=== PATIENT | male | born 1970 | race African-American/Black ===

== ENCOUNTER 2017-03-31 14:46 | Inpatient (IN) | payer MEDICARE, OTHER ==
[2017-03-31 16:21] VITALS: BMI 32.5
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
[2017-03-31] MEDS ORDERED: guaiFENesin/D-METHORPHAN HB 10 ML UNIT-DOSE CUPS PO PRN (19:07)
[2017-03-31] MEDS ORDERED: LOPERAMIDE HCL 2 MG CAPSULE PO PRN (19:07)
[2017-03-31] MEDS ORDERED: MAGNESIUM CITRATE 300 ML BOTTLE PO PRN (19:07)
[2017-03-31] MEDS ORDERED: MAGNESIUM HYDROX 2400MG/30ML ORAL SUSPENSION 30 ML CUP PO PRN (19:07)
[2017-03-31] MEDS ORDERED: ACETAMINOPHEN 325 MG TABLET (FP) PO PRN (19:07)
[2017-03-31] MEDS ORDERED: MAG HYDROX/AL HYDROX/SIMETH 30 ML UNIT-DOSE CUP PO PRN (19:07)
[2017-03-31] MEDS ORDERED: hydrOXYzine PAMOATE 50 MG CAPSULE (FP) PO PRN (19:07)
[2017-03-31] MEDS ORDERED: NICOTINE POLACRILEX 2 MG GUM BUC PRN (19:07)
[2017-03-31 21:19] LABS: URINE APPEARANCE CLEAR; URINE BILIRUBIN NEGATIVE (NEGATIVE); URINE BLOOD NEGATIVE (NEGATIVE); URINE COLOR YELLOW; URINE GLUCOSE (UA) NEGATIVE (NEGATIVE); URINE KETONE NEGATIVE (NEGATIVE); URINE LEUK ESTERASE NEGATIVE (NEGATIVE); URINE NITRITE NEGATIVE (NEGATIVE); URINE PROTEIN NEGATIVE (NEGATIVE); URINE UROBILINOGEN NEGATIVE mg/dL (0.2-1.0)
[2017-03-31] MEDS: diphenhydrAMINE HCL 50 MG CAPSULE PO PRN (21:40)
[2017-03-31] MEDS: THIAMINE HCL 100 MG TABLET (FP) PO SCH (21:40)
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
[2017-04-01] MEDS: PRENATAL VITAMINS W/ FOLIC ACID TABLET (FP) PO SCH (10:05)
[2017-04-01] MEDS: NICOTINE 14 MG/24 HOURS TOPICAL PATCH TD SCH (10:06)
[2017-04-01 10:24] LABS: ALBUMIN 3.3 g/dl (3.4-5.0); ALK PHOS 88 U/L (45-117); ANION GAP 6 (8-16); BILIRUBIN,TOTAL 0.2 mg/dL (0.2-1.0); CALCIUM 8.4 mg/dL (8.5-10.1); CO2 26 mmol/L (21-32); GLUCOSE,RANDOM 88 mg/dL (74-106); MCH 30.4 pg (25.7-33.7); MCHC 33.1 g/dl (32.0-35.9); MEAN CELL VOLUME 91.9 fl (80-96); MEAN PLT VOLUME 9.4 fl (7.5-11.1); PLATELET COUNT 208 K/MM3 (134-434); RDW 15.1 % (11.9-15.9); SGOT/AST 14 U/L (15-37); SGPT/ALT 34 U/L (12-78); TOT PROT 6.3 g/dl (6.4-8.2); WHITE BLOOD COUNT 5.9 K/mm3 (4.0-10.0)
[2017-04-01 11:26] LABS: HIV 1 & 2 AB NEGATIVE; HIV 1 AGp24 NEGATIVE
[2017-04-01] MEDS: risperiDONE 2 MG TABLET PO SCH (21:44)
[2017-04-01] MEDS: THIAMINE HCL 100 MG TABLET (FP) PO SCH (21:44)
[2017-04-01] MEDS: traZODone HCL 100 MG TABLET (FP) PO SCH (21:44)
[2017-04-02] MEDS: PRENATAL VITAMINS W/ FOLIC ACID TABLET (FP) PO SCH (10:09)
[2017-04-02] MEDS: NICOTINE 14 MG/24 HOURS TOPICAL PATCH TD SCH (10:14)
--- NOTE | 2017-04-02 20:02 | EKG ---
Test Reason : Blood Pressure : / mmHG Vent. Rate : 070 BPM Atrial Rate : 070 BPM P-R Int : 164 ms QRS Dur : 096 ms QT Int : 382 ms P-R-T Axes : 057 049 026 degrees QTc Int : 412 ms NORMAL SINUS RHYTHM WITH SINUS ARRHYTHMIA MINIMAL VOLTAGE CRITERIA FOR LVH, MAY BE NORMAL VARIANT EARLY REPOLARIZATION BORDERLINE ECG NO PREVIOUS ECGS AVAILABLE Confirmed by CAITLIN BURNS MD ([id number]) on 04/02/2017 8:02:18 PM Referred By: Confirmed By:CAITLIN BURNS MD
[2017-04-02] MEDS: traZODone HCL 100 MG TABLET (FP) PO SCH (21:34)
[2017-04-02] MEDS: risperiDONE 2 MG TABLET PO SCH (21:34)
[2017-04-02] MEDS: diphenhydrAMINE HCL 50 MG CAPSULE PO PRN (21:34)
[2017-04-02] MEDS: THIAMINE HCL 100 MG TABLET (FP) PO SCH (21:34)
[2017-04-03] MEDS: PRENATAL VITAMINS W/ FOLIC ACID TABLET (FP) PO SCH (10:06)
[2017-04-03] MEDS: NICOTINE 14 MG/24 HOURS TOPICAL PATCH TD SCH (10:07)
[2017-04-03] MEDS: risperiDONE 2 MG TABLET PO SCH (21:26)
[2017-04-03] MEDS: traZODone HCL 100 MG TABLET (FP) PO SCH (21:26)
[2017-04-03] MEDS: THIAMINE HCL 100 MG TABLET (FP) PO SCH (21:27)
[2017-04-03] MEDS: diphenhydrAMINE HCL 50 MG CAPSULE PO PRN (21:27)
[2017-04-04] MEDS: IBUPROFEN 400 MG TABLET (FP) PO PRN ×2 (00:55→21:09)
[2017-04-04] MEDS: NICOTINE 14 MG/24 HOURS TOPICAL PATCH TD SCH (10:30)
[2017-04-04] MEDS: PRENATAL VITAMINS W/ FOLIC ACID TABLET (FP) PO SCH (10:30)
[2017-04-04] MEDS: traZODone HCL 100 MG TABLET (FP) PO SCH (21:08)
[2017-04-04] MEDS: diphenhydrAMINE HCL 50 MG CAPSULE PO PRN (21:08)
[2017-04-04] MEDS: risperiDONE 2 MG TABLET PO SCH (21:08)
[2017-04-04] MEDS: THIAMINE HCL 100 MG TABLET (FP) PO SCH (21:08)
[2017-04-05] MEDS: PRENATAL VITAMINS W/ FOLIC ACID TABLET (FP) PO SCH (10:32)
[2017-04-05] MEDS: NICOTINE 14 MG/24 HOURS TOPICAL PATCH TD SCH (10:33)
[2017-04-05] MEDS: IBUPROFEN 400 MG TABLET (FP) PO PRN ×2 (10:34→21:11)
[2017-04-05] MEDS: diphenhydrAMINE HCL 50 MG CAPSULE PO PRN (21:09)
[2017-04-05] MEDS: traZODone HCL 100 MG TABLET (FP) PO SCH (21:09)
[2017-04-05] MEDS: THIAMINE HCL 100 MG TABLET (FP) PO SCH (21:09)
[2017-04-05] MEDS: risperiDONE 2 MG TABLET PO SCH (21:11)
[2017-04-06] MEDS: PRENATAL VITAMINS W/ FOLIC ACID TABLET (FP) PO SCH (10:00)
[2017-04-06] MEDS: NICOTINE 14 MG/24 HOURS TOPICAL PATCH TD SCH (10:01)
[2017-04-06] MEDS: IBUPROFEN 400 MG TABLET (FP) PO PRN (17:02)
[2017-04-06] MEDS: THIAMINE HCL 100 MG TABLET (FP) PO SCH (21:03)
[2017-04-06] MEDS: diphenhydrAMINE HCL 50 MG CAPSULE PO PRN (21:03)
[2017-04-06] MEDS: traZODone HCL 100 MG TABLET (FP) PO SCH (21:03)
[2017-04-06] MEDS: risperiDONE 2 MG TABLET PO SCH (21:03)
[2017-04-07] MEDS: IBUPROFEN 400 MG TABLET (FP) PO PRN ×2 (05:57→21:16)
[2017-04-07] MEDS: PRENATAL VITAMINS W/ FOLIC ACID TABLET (FP) PO SCH (10:20)
[2017-04-07] MEDS: NICOTINE 14 MG/24 HOURS TOPICAL PATCH TD SCH (10:20)
[2017-04-07] MEDS: THIAMINE HCL 100 MG TABLET (FP) PO SCH (21:16)
[2017-04-07] MEDS: risperiDONE 2 MG TABLET PO SCH (21:17)
[2017-04-07] MEDS: traZODone HCL 100 MG TABLET (FP) PO SCH (21:17)
[2017-04-07] MEDS: diphenhydrAMINE HCL 50 MG CAPSULE PO PRN (21:17)
[2017-04-08] MEDS: PRENATAL VITAMINS W/ FOLIC ACID TABLET (FP) PO SCH (10:10)
[2017-04-08] MEDS: NICOTINE 14 MG/24 HOURS TOPICAL PATCH TD SCH (10:10)
[2017-04-08] MEDS: THIAMINE HCL 100 MG TABLET (FP) PO SCH (21:16)
[2017-04-08] MEDS: traZODone HCL 100 MG TABLET (FP) PO SCH (21:16)
[2017-04-08] MEDS: risperiDONE 2 MG TABLET PO SCH (21:16)
[2017-04-08] MEDS: IBUPROFEN 400 MG TABLET (FP) PO PRN (21:17)
[2017-04-08] MEDS: diphenhydrAMINE HCL 50 MG CAPSULE PO PRN (21:17)
[2017-04-09] MEDS: PRENATAL VITAMINS W/ FOLIC ACID TABLET (FP) PO SCH (10:23)
[2017-04-09] MEDS: NICOTINE 14 MG/24 HOURS TOPICAL PATCH TD SCH (10:23)
[2017-04-09] MEDS: IBUPROFEN 400 MG TABLET (FP) PO PRN (21:15)
[2017-04-09] MEDS: diphenhydrAMINE HCL 50 MG CAPSULE PO PRN (21:16)
[2017-04-09] MEDS: risperiDONE 2 MG TABLET PO SCH (21:16)
[2017-04-09] MEDS: traZODone HCL 100 MG TABLET (FP) PO SCH (21:16)
[2017-04-09] MEDS: THIAMINE HCL 100 MG TABLET (FP) PO SCH (21:17)
[2017-04-10] MEDS: NICOTINE 14 MG/24 HOURS TOPICAL PATCH TD SCH (10:24)
[2017-04-10] MEDS: PRENATAL VITAMINS W/ FOLIC ACID TABLET (FP) PO SCH (10:24)
[2017-04-10] MEDS: risperiDONE 2 MG TABLET PO SCH (22:00)
[2017-04-10] MEDS: THIAMINE HCL 100 MG TABLET (FP) PO SCH (22:00)
[2017-04-10] MEDS: IBUPROFEN 400 MG TABLET (FP) PO PRN (22:01)
[2017-04-10] MEDS: traZODone HCL 100 MG TABLET (FP) PO SCH (22:01)
[2017-04-10] MEDS: diphenhydrAMINE HCL 50 MG CAPSULE PO PRN (22:01)
[2017-04-11] MEDS: NICOTINE 14 MG/24 HOURS TOPICAL PATCH TD SCH (10:13)
[2017-04-11] MEDS: PRENATAL VITAMINS W/ FOLIC ACID TABLET (FP) PO SCH (10:13)
[2017-04-11] MEDS: IBUPROFEN 400 MG TABLET (FP) PO PRN (17:00)
[2017-04-11] MEDS: risperiDONE 2 MG TABLET PO SCH (21:17)
[2017-04-11] MEDS: THIAMINE HCL 100 MG TABLET (FP) PO SCH (21:17)
[2017-04-11] MEDS: diphenhydrAMINE HCL 50 MG CAPSULE PO PRN (21:17)
[2017-04-11] MEDS: traZODone HCL 100 MG TABLET (FP) PO SCH (21:17)
[2017-04-12] MEDS: NICOTINE 14 MG/24 HOURS TOPICAL PATCH TD SCH (10:09)
[2017-04-12] MEDS: PRENATAL VITAMINS W/ FOLIC ACID TABLET (FP) PO SCH (10:09)
[2017-04-12] MEDS: IBUPROFEN 400 MG TABLET (FP) PO PRN ×2 (13:50→21:40)
[2017-04-12] MEDS: THIAMINE HCL 100 MG TABLET (FP) PO SCH (21:38)
[2017-04-12] MEDS: risperiDONE 2 MG TABLET PO SCH (21:38)
[2017-04-12] MEDS: traZODone HCL 100 MG TABLET (FP) PO SCH (21:38)
[2017-04-12] MEDS: diphenhydrAMINE HCL 50 MG CAPSULE PO PRN (21:39)
[2017-04-13] MEDS: NICOTINE 14 MG/24 HOURS TOPICAL PATCH TD SCH (10:07)
[2017-04-13] MEDS: PRENATAL VITAMINS W/ FOLIC ACID TABLET (FP) PO SCH (10:07)
[2017-04-13] MEDS: risperiDONE 2 MG TABLET PO SCH (21:18)
[2017-04-13] MEDS: traZODone HCL 100 MG TABLET (FP) PO SCH (21:19)
[2017-04-13] MEDS: diphenhydrAMINE HCL 50 MG CAPSULE PO PRN (21:19)
[2017-04-13] MEDS: IBUPROFEN 400 MG TABLET (FP) PO PRN (21:19)
[2017-04-13] MEDS: THIAMINE HCL 100 MG TABLET (FP) PO SCH (21:19)
[2017-04-14] MEDS: IBUPROFEN 400 MG TABLET (FP) PO PRN ×3 (03:19→17:09)
[2017-04-14] MEDS: PRENATAL VITAMINS W/ FOLIC ACID TABLET (FP) PO SCH (10:27)
[2017-04-14] MEDS: NICOTINE 14 MG/24 HOURS TOPICAL PATCH TD SCH (10:28)
[2017-04-14] MEDS: traZODone HCL 100 MG TABLET (FP) PO SCH (21:35)
[2017-04-14] MEDS: THIAMINE HCL 100 MG TABLET (FP) PO SCH (21:35)
[2017-04-14] MEDS: risperiDONE 2 MG TABLET PO SCH (21:35)
[2017-04-14] MEDS: diphenhydrAMINE HCL 50 MG CAPSULE PO PRN (21:35)
[2017-04-15] MEDS: PRENATAL VITAMINS W/ FOLIC ACID TABLET (FP) PO SCH (10:11)
[2017-04-15] MEDS: NICOTINE 14 MG/24 HOURS TOPICAL PATCH TD SCH (10:11)
[2017-04-15] MEDS: IBUPROFEN 400 MG TABLET (FP) PO PRN ×2 (14:19→22:00)
[2017-04-15] MEDS: traZODone HCL 100 MG TABLET (FP) PO SCH (22:00)
[2017-04-15] MEDS: risperiDONE 2 MG TABLET PO SCH (22:00)
[2017-04-15] MEDS: diphenhydrAMINE HCL 50 MG CAPSULE PO PRN (22:00)
[2017-04-15] MEDS: THIAMINE HCL 100 MG TABLET (FP) PO SCH (22:00)
[2017-04-16] MEDS: IBUPROFEN 400 MG TABLET (FP) PO PRN ×2 (08:59→22:01)
[2017-04-16] MEDS: PRENATAL VITAMINS W/ FOLIC ACID TABLET (FP) PO SCH (10:25)
[2017-04-16] MEDS: NICOTINE 14 MG/24 HOURS TOPICAL PATCH TD SCH (10:25)
[2017-04-16] MEDS: diphenhydrAMINE HCL 50 MG CAPSULE PO PRN (22:00)
[2017-04-16] MEDS: THIAMINE HCL 100 MG TABLET (FP) PO SCH (22:00)
[2017-04-16] MEDS: risperiDONE 2 MG TABLET PO SCH (22:01)
[2017-04-16] MEDS: traZODone HCL 100 MG TABLET (FP) PO SCH (22:01)
[2017-04-17] MEDS: PRENATAL VITAMINS W/ FOLIC ACID TABLET (FP) PO SCH (10:36)
[2017-04-17] MEDS: NICOTINE 14 MG/24 HOURS TOPICAL PATCH TD SCH (10:37)
[2017-04-17] MEDS: THIAMINE HCL 100 MG TABLET (FP) PO SCH (21:30)
[2017-04-17] MEDS: diphenhydrAMINE HCL 50 MG CAPSULE PO PRN (21:30)
[2017-04-17] MEDS: traZODone HCL 100 MG TABLET (FP) PO SCH (21:31)
[2017-04-17] MEDS: risperiDONE 2 MG TABLET PO SCH (21:31)
[2017-04-17] MEDS: IBUPROFEN 400 MG TABLET (FP) PO PRN (21:31)
[2017-04-18] MEDS: IBUPROFEN 400 MG TABLET (FP) PO PRN ×2 (08:50→21:27)
[2017-04-18] MEDS: PRENATAL VITAMINS W/ FOLIC ACID TABLET (FP) PO SCH (09:08)
[2017-04-18] MEDS: NICOTINE 14 MG/24 HOURS TOPICAL PATCH TD SCH (09:09)
--- NOTE | 2017-04-18 13:24 | PN ---
[facility] Progress Note Note: patient has head injury ,sent back after evaluation in er, bp 145/87,p91,r 19,t 97.9 ct of head,cervical and lumbar spine no fracture medical clear for er at [facility] to return to reha cont fall protocol 1 fall precaution continue monitoring
[2017-04-18] MEDS: THIAMINE HCL 100 MG TABLET (FP) PO SCH (21:27)
[2017-04-18] MEDS: traZODone HCL 100 MG TABLET (FP) PO SCH (21:27)
[2017-04-18] MEDS: risperiDONE 2 MG TABLET PO SCH (21:27)
[2017-04-18] MEDS: diphenhydrAMINE HCL 50 MG CAPSULE PO PRN (21:27)
[2017-04-19] MEDS: IBUPROFEN 400 MG TABLET (FP) PO PRN ×2 (05:39→21:11)
[2017-04-19] MEDS: PRENATAL VITAMINS W/ FOLIC ACID TABLET (FP) PO SCH (10:25)
[2017-04-19] MEDS: NICOTINE 14 MG/24 HOURS TOPICAL PATCH TD SCH (10:25)
[2017-04-19] MEDS: THIAMINE HCL 100 MG TABLET (FP) PO SCH (21:10)
[2017-04-19] MEDS: traZODone HCL 100 MG TABLET (FP) PO SCH (21:10)
[2017-04-19] MEDS: diphenhydrAMINE HCL 50 MG CAPSULE PO PRN (21:10)
[2017-04-19] MEDS: risperiDONE 2 MG TABLET PO SCH (21:10)
[2017-04-20] MEDS: IBUPROFEN 400 MG TABLET (FP) PO PRN ×2 (04:02→21:20)
[2017-04-20] MEDS: PRENATAL VITAMINS W/ FOLIC ACID TABLET (FP) PO SCH (09:42)
[2017-04-20] MEDS: NICOTINE 14 MG/24 HOURS TOPICAL PATCH TD SCH (09:43)
[2017-04-20] MEDS: diphenhydrAMINE HCL 50 MG CAPSULE PO PRN (21:20)
[2017-04-20] MEDS: THIAMINE HCL 100 MG TABLET (FP) PO SCH (21:21)
[2017-04-20] MEDS: traZODone HCL 100 MG TABLET (FP) PO SCH (21:21)
[2017-04-20] MEDS: risperiDONE 2 MG TABLET PO SCH (21:21)
[2017-04-21] MEDS: PRENATAL VITAMINS W/ FOLIC ACID TABLET (FP) PO SCH (09:47)
[2017-04-21] MEDS: NICOTINE 14 MG/24 HOURS TOPICAL PATCH TD SCH (09:48)
[2017-04-21] MEDS: traZODone HCL 100 MG TABLET (FP) PO SCH (21:35)
[2017-04-21] MEDS: diphenhydrAMINE HCL 50 MG CAPSULE PO PRN (21:35)
[2017-04-21] MEDS: IBUPROFEN 400 MG TABLET (FP) PO PRN (21:35)
[2017-04-21] MEDS: risperiDONE 2 MG TABLET PO SCH (21:35)
[2017-04-21] MEDS: THIAMINE HCL 100 MG TABLET (FP) PO SCH (21:35)
[2017-04-22] MEDS: PRENATAL VITAMINS W/ FOLIC ACID TABLET (FP) PO SCH (10:20)
[2017-04-22] MEDS: NICOTINE 14 MG/24 HOURS TOPICAL PATCH TD SCH (10:20)
[2017-04-22] MEDS: IBUPROFEN 400 MG TABLET (FP) PO PRN ×2 (10:21→21:14)
[2017-04-22] MEDS: THIAMINE HCL 100 MG TABLET (FP) PO SCH (21:12)
[2017-04-22] MEDS: traZODone HCL 100 MG TABLET (FP) PO SCH (21:12)
[2017-04-22] MEDS: risperiDONE 2 MG TABLET PO SCH (21:13)
[2017-04-22] MEDS: diphenhydrAMINE HCL 50 MG CAPSULE PO PRN (21:14)
[2017-04-23] MEDS: PRENATAL VITAMINS W/ FOLIC ACID TABLET (FP) PO SCH (10:11)
[2017-04-23] MEDS: NICOTINE 14 MG/24 HOURS TOPICAL PATCH TD SCH (10:11)
[2017-04-23] MEDS: IBUPROFEN 400 MG TABLET (FP) PO PRN ×2 (10:12→21:37)
[2017-04-23] MEDS: THIAMINE HCL 100 MG TABLET (FP) PO SCH (21:37)
[2017-04-23] MEDS: diphenhydrAMINE HCL 50 MG CAPSULE PO PRN (21:38)
[2017-04-23] MEDS: risperiDONE 2 MG TABLET PO SCH (21:38)
[2017-04-23] MEDS: traZODone HCL 100 MG TABLET (FP) PO SCH (21:38)
[2017-04-24] MEDS: PRENATAL VITAMINS W/ FOLIC ACID TABLET (FP) PO SCH (10:09)
[2017-04-24] MEDS: IBUPROFEN 400 MG TABLET (FP) PO PRN ×2 (10:11→21:31)
[2017-04-24] MEDS: NICOTINE 14 MG/24 HOURS TOPICAL PATCH TD SCH (10:12)
[2017-04-24] MEDS: traZODone HCL 100 MG TABLET (FP) PO SCH (21:32)
[2017-04-24] MEDS: risperiDONE 2 MG TABLET PO SCH (21:32)
[2017-04-24] MEDS: THIAMINE HCL 100 MG TABLET (FP) PO SCH (21:32)
[2017-04-24] MEDS: diphenhydrAMINE HCL 50 MG CAPSULE PO PRN (21:33)
[2017-04-25] MEDS: P-EPHED 60MG/TRIPROLIDI 2.5MG TABLET PO PRN ×2 (08:23→21:14)
[2017-04-25] MEDS: PRENATAL VITAMINS W/ FOLIC ACID TABLET (FP) PO SCH (09:57)
[2017-04-25] MEDS: NICOTINE 14 MG/24 HOURS TOPICAL PATCH TD SCH (09:58)
[2017-04-25] MEDS: risperiDONE 2 MG TABLET PO SCH (21:12)
[2017-04-25] MEDS: traZODone HCL 100 MG TABLET (FP) PO SCH (21:12)
[2017-04-25] MEDS: diphenhydrAMINE HCL 50 MG CAPSULE PO PRN (21:12)
[2017-04-25] MEDS: THIAMINE HCL 100 MG TABLET (FP) PO SCH (21:12)
[2017-04-25] MEDS: IBUPROFEN 400 MG TABLET (FP) PO PRN (21:12)
[2017-04-25] MEDS: MENTHOL/PHENOL 1 EACH UD MM PRN (21:14)
[2017-04-26] MEDS: NICOTINE 14 MG/24 HOURS TOPICAL PATCH TD SCH (09:50)
[2017-04-26] MEDS: PRENATAL VITAMINS W/ FOLIC ACID TABLET (FP) PO SCH (09:50)
[2017-04-26] MEDS: P-EPHED 60MG/TRIPROLIDI 2.5MG TABLET PO PRN ×2 (11:17→21:42)
[2017-04-26] MEDS: MENTHOL/PHENOL 1 EACH UD MM PRN ×2 (11:17→21:44)
[2017-04-26] MEDS: THIAMINE HCL 100 MG TABLET (FP) PO SCH (21:41)
[2017-04-26] MEDS: risperiDONE 2 MG TABLET PO SCH (21:41)
[2017-04-26] MEDS: traZODone HCL 100 MG TABLET (FP) PO SCH (21:41)
[2017-04-26] MEDS: IBUPROFEN 400 MG TABLET (FP) PO PRN (21:43)
[2017-04-26] MEDS: diphenhydrAMINE HCL 50 MG CAPSULE PO PRN (21:43)
[2017-04-27] MEDS: PRENATAL VITAMINS W/ FOLIC ACID TABLET (FP) PO SCH (09:59)
[2017-04-27] MEDS: NICOTINE 14 MG/24 HOURS TOPICAL PATCH TD SCH (09:59)
[2017-04-27] MEDS: THIAMINE HCL 100 MG TABLET (FP) PO SCH (22:00)
[2017-04-27] MEDS: risperiDONE 2 MG TABLET PO SCH (22:00)
[2017-04-27] MEDS: traZODone HCL 100 MG TABLET (FP) PO SCH (22:00)
[2017-04-27] MEDS: P-EPHED 60MG/TRIPROLIDI 2.5MG TABLET PO PRN (22:02)
[2017-04-27] MEDS: IBUPROFEN 400 MG TABLET (FP) PO PRN (22:02)
[2017-04-27] MEDS: diphenhydrAMINE HCL 50 MG CAPSULE PO PRN (22:02)
[2017-04-27] MEDS: MENTHOL/PHENOL 1 EACH UD MM PRN (22:02)
--- NOTE | 2017-04-28 06:40 | PN ---
Psychiatric Progress Note Vital Signs: Vital Signs Period Temp Pulse Resp BP Sys/Ortiz Pulse Ox Last 24 Hr 97.9 F 91 20-20 122/74 Date of Session: 04/28/17 Chief Complaint:: Discharge Note HPI: Patient addressing Phencyclidine Dependence comorbid with Nicotine Dependence and Schizophrenia Current Medications: Active Medications Generic Name Dose Route Start Last Admin Trade Name Freq PRN Reason Stop Dose Admin Acetaminophen 650 mg 03/31/17 19:07 Tylenol - PO Q4H PRN PAIN Al Hydroxide/Mg Hydroxide 30 ml 03/31/17 19:07 Mylanta Oral Suspension - PO Q6H PRN DYSPEPSIA Diphenhydramine HCl 50 mg 03/31/17 19:07 04/27/17 22:02 Benadryl - PO 50 mg HSMR1 PRN Administration INSOMNIA Eucalyptus/Menthol/Phenol/Sorbitol 1 each 03/31/17 19:07 04/27/17 22:02 Cepastat Lozenge - MM 1 each Q4H PRN Administration SORE THROAT Guaifenesin 10 ml 03/31/17 19:07 Robitussin Dm - PO Q6H PRN COUGH Hydroxyzine Pamoate 50 mg 03/31/17 19:07 Vistaril - PO Q4H PRN AGITATION Ibuprofen 400 mg 03/31/17 19:07 04/27/17 22:02 Motrin - PO 400 mg Q6H PRN Administration SEVERE PAIN Loperamide HCl 4 mg 03/31/17 19:07 Imodium - PO Q6H PRN DIARRHEA Magnesium Citrate 300 ml 03/31/17 19:07 Citroma - PO Q48H PRN CONSTIPATION Magnesium Hydroxide 30 ml 03/31/17 19:07 Milk Of Magnesia - PO DAILY PRN CONSTIPATION Nicotine 14 mg 04/01/17 10:00 04/27/17 09:59 Nicoderm Patch - TD Not Given DAILY MICHAEL Nicotine Polacrilex 2 mg 03/31/17 19:07 04/23/17 19:55 Nicorette Gum - BUC 2 mg Q2H PRN Administration NICOTINE REPLACEMENT RX Multivit/Folic Acid/Iron 1 tab 04/01/17 10:00 04/27/17 09:59 Vitamins (Sjr) - PO 1 tab DAILY MICHAEL Administration Pseudoephedrine/Triprolidine 1 combo 03/31/17 19:07 04/27/17 22:02 Actifed - PO 1 combo TID PRN Administration NASAL CONGESTION Risperidone 4 mg 04/01/17 22:00 04/27/17 22:00 Risperdal - PO 4 mg HS MICHAEL Administration Thiamine HCl 100 mg 03/31/17 22:00 04/27/17 22:00 Vitamin B1 - PO 100 mg HS MICHAEL Administration Trazodone HCl 100 mg 04/01/17 22:00 04/27/17 22:00 Desyrel - PO 100 mg HS MICHAEL Administration Current Side Effect: No Lab tests ordered: Yes Lab tests reviewed: Yes Provider note:: Patient has completed this program today. He has met his treatment goals and will continue to address his issues in an outpatient program designated by [facility]. 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 He responded wel to Risperdal 4 mg po HS and Trazadone 100 mg po HS. Scripts for 30 days supply of these medications are electronically transmitted to [facility] at [address] [place] [address]. He is stable for discharge today. Total face to face time:: 35 Mental Status Exam - Mental Status Exam Alert and Oriented to: Time, Place, Person Cognitive Function: Fair Patient Appearance: Well Groomed Mood: Hopeful, Euthymic Affect: Appropriate Patient Behavior: Cooperative Speech Pattern: Clear Voice Loudness: Normal Thought Process: Intact, Goal Oriented Thought Disorder: Not Present Hallucinations: Denies Suicidal Ideation: Denies Homicidal Ideation: Denies Insight/Judgement: Fair Sleep: Fair Appetite: Good Muscle strength/Tone: Normal Gait/Station: Normal Psychiatric Treatment Plan - Problem List (1) Phencyclidine dependence Current Visit: Yes (2) Nicotine dependence Current Visit: Yes Qualifiers: Nicotine product type: cigarettes Substance use status: in withdrawal Qualified Code(s): F17.213 - Nicotine dependence, cigarettes, with withdrawal (3) Schizophrenia Current Visit: Yes Qualifiers: Schizophrenia type: disorganized schizophrenia Qualified Code(s): F20.1 - Disorganized schizophrenia Initial treatment plan: Patient is discharged today and will be referred for outpatient treatment to a place designated by [facility]
[2017-04-28 06:55] VITALS: BP 139/79; PULSE 100; TEMP 98
== END 2017-04-28 07:12 | disposition home or self-care (01) | DRG 895 ==
LOC: YASAS 14:46 → Y3W 18:25
PROVIDERS: ADMIT Psychiatry & Neurology Psychiatry; ATTEND Psychiatry & Neurology Psychiatry
PROC: HZ42ZZZ Group Counseling for Substance Abuse Treatment, Cognitive-Behavioral (ICD-10-PCS; principal; 2017-03-31)
DX: F16.20 Hallucinogen dependence, uncomplicated (principal); F17.213 Nicotine dependence, cigarettes, with withdrawal; F20.1 Disorganized schizophrenia; S09.90XA Unspecified injury of head, initial encounter; E66.9 Obesity, unspecified; Z68.32 Body mass index [BMI] 32.0-32.9, adult; W19.XXXA Unspecified fall, initial encounter; Y93.9 Activity, unspecified; Y92.239 Unspecified place in hospital as the place of occurrence of the external cause
CPT/HCPCS: 36415; 80053; 81003; 85027; 86593; 86803; 87389; 93005; 93010

== ENCOUNTER 2017-04-18 09:49 | Emergency (ER) | payer MEDICARE, OTHER ==
--- NOTE | 2017-04-18 09:59 | PDOC ---
History of Present Illness <Jacques Solis - Last Filed: 04/18/17 11:16> - General History Source: Patient Exam Limitations: No Limitations - History of Present Illness Initial Comments: 04/18/17 10:20 The patient is a 47 year old male with a significant PMH of PCP abuse and schizophrenia who presents to the emergency department with head, back, and neck pain beginning at approximately 8:10AM this morning. The patient reports eating breakfast at [facility] and was leaning back in his amy when he fell backwards onto the floor. He reports the most pronounced pain is in his lower back. The patient also notes that he cant turn his neck due to the pain. The patient denies chest pain, shortness of breath and dizziness. Denies fever, chills, nausea, vomit, diarrhea and constipation. Denies dysuria, frequency, urgency and hematuria. Allergies: NKA Social history: PCP use noted. No reported cigarette or alcohol use. Note: Patient at [facility] 04/18/17 11:20 <Jacob Campo - Last Filed: 04/18/17 18:00> - General Chief Complaint: Injury Stated Complaint: FALL Time Seen by Provider: 04/18/17 09:58 Past History - Past Medical History Anemia: No Asthma: No Cancer: No Cardiac Disorders: No CVA: No COPD: No CHF: No Dementia: No Diabetes: No GI Disorders: No Disorders: No HTN: No Hypercholesterolemia: No Kidney Stones: No Liver Disease: No Suicide Attempt (Hx): No Seizures: No Thyroid Disease: No - Surgical History Abdominal Surgery: No Appendectomy: No Cardiac Surgery: No Cholecystectomy: No Lung Surgery: No Neurologic Surgery: No Orthopedic Surgery: No - Reproductive History Testicular Surgery: No - Psycho/Social/Smoking Cessation Hx Anxiety: No Suicidal Ideation: No Smoking Status: No Smoking History: Current every day smoker Have you smoked in the past 12 months: Yes Number of Cigarettes Smoked Daily: 20 Cigars Per Day: 0 Information on smoking cessation initiated: No 'Breaking Loose' booklet given: 03/31/17 Hx Alcohol Use: No Drug/Substance Use Hx: Yes (h/o PCP abuse) Substance Use Type: Marijuana Hx Substance Use Treatment: No <Jacques Solis - Last Filed: 04/18/17 11:16> <Jacob Campo - Last Filed: 04/18/17 18:00> - Past Medical History Allergies/Adverse Reactions: Allergies Allergy/AdvReac Type Severity Reaction Status Date / Time No Known Allergies Allergy Verified 04/18/17 09:58 Home Medications: Ambulatory Orders Risperidone [Risperdal -] 4 mg PO HS #30 tablet 05/31/16 Trazodone HCl [Desyrel -] 100 mg PO HS #30 tablet 05/31/16 Review of Systems - Review of Systems Comments:: 04/18/17 10:21 GENERAL/CONSTITUTIONAL: No fever or chills. No weakness. HEAD, EYES, EARS, NOSE AND THROAT: (+) Head pain. No change in vision. No ear pain or discharge. No sore throat. CARDIOVASCULAR: No chest pain or shortness of breath. RESPIRATORY: No cough, wheezing, or hemoptysis. GASTROINTESTINAL: No nausea, vomiting, diarrhea or constipation. GENITOURINARY: No dysuria, frequency, or change in urination. MUSCULOSKELETAL: (+) Neck pain. (+) Lower back pain. No joint pain. SKIN: No rash NEUROLOGIC: No headache, vertigo, loss of consciousness, or change in strength/ sensation. ENDOCRINE: No increased thirst. No abnormal weight change. HEMATOLOGIC/LYMPHATIC: No anemia, easy bleeding, or history of blood clots. ALLERGIC/IMMUNOLOGIC: No hives or skin allergy. <Jacob Campo - Last Filed: 04/18/17 18:00> *Physical Exam - Vital Signs Last Vital Signs Temp Pulse Resp BP Pulse Ox 98.2 F 75 17 119/80 100 04/18/17 09:54 04/18/17 09:54 04/18/17 09:54 04/18/17 09:54 04/18/17 09:54 <Jacques Solis - Last Filed: 04/18/17 11:16> - Vital Signs Last Vital Signs Temp Pulse Resp BP Pulse Ox 98.2 F 75 17 119/80 100 04/18/17 09:54 04/18/17 09:54 04/18/17 09:54 04/18/17 09:54 04/18/17 09:54 - Physical Exam Comments: 04/18/17 10:23 GENERAL: Awake, alert, and fully oriented, in no acute distress HEAD: No signs of trauma EYES: (+) Disconjugate gaze (old, not related to this episode). PERRLA, EOMI, sclera anicteric, conjunctiva clear ENT: Auricles normal inspection, hearing grossly normal, nares patent, oropharynx clear without exudates. Moist mucosa NECK: Normal ROM, supple, no lymphadenopathy, JVD, or masses LUNGS: Breath sounds equal, clear to auscultation bilaterally. No wheezes, and no crackles HEART: Regular rate and rhythm, normal S1 and S2, no murmurs, rubs or gallops ABDOMEN: Soft, nontender, normoactive bowel sounds. No guarding, no rebound. No masses EXTREMITIES: Normal range of motion, no edema. No clubbing or cyanosis. No cords, erythema, or tenderness NEUROLOGICAL: Cranial nerves II through XII grossly intact. Normal speech, normal gait SKIN: Warm, Dry, normal turgor, no rashes or lesions noted. <Jacob Campo - Last Filed: 04/18/17 18:00> ED Treatment Course - Medications Given in the ED: ED Medications Discontinued Medications Generic Name Dose Route Start Last Admin Trade Name Freq PRN Reason Stop Dose Admin Ketorolac Tromethamine 60 mg 04/18/17 10:13 04/18/17 10:16 Toradol Injection - IM 04/18/17 10:14 60 mg ONCE ONE Administration <Jacob Campo - Last Filed: 04/18/17 18:00> *DC/Admit/Observation/Transfer - Discharge Dispostion Admit: No - Attestations Physician Attestion: 04/18/17 09:58 I, Dr. Jacques Solis, attest that this document has been prepared under my direction and personally reviewed by me in its entirety. I further attest, that it accurately reflects all work, treatment, procedures and medical decision -making performed by me. <Jacques Solis - Last Filed: 04/18/17 11:16> - Attestations Scribe Attestion: 04/18/17 10:23 Documentation prepared by Jacob Campo, acting as medical staff physician for Jacques Solis DO. <Jacob Campo - Last Filed: 04/18/17 18:00> Diagnosis at time of Disposition: Multiple contusions Fall Qualifiers: Encounter type: initial encounter Qualified Code(s): W19.XXXA - Unspecified fall, initial encounter - Discharge Dispostion Disposition: HOME Condition at time of disposition: Unchanged/Unknown - Patient Instructions Printed Discharge Instructions: DI for Contusion Additional Instructions: Kendrick- Sorry that you hurt yourself today when you leaned back in your chair and it slipped under you. Your CT Scan of the Head, Neck and Low Back are all negative. Please be more careful. You can take motrin for pain. Best- Dr. Jacques Solis
[2017-04-18] MEDS ORDERED: KETOROLAC TROMETHAMINE 60 MG/2 ML VIAL ONE (10:12)
[2017-04-18] MEDS ORDERED: KETOROLAC TROMETHAMINE 60 MG/2 ML VIAL IM ONE (10:13)
[2017-04-18 10:58] VITALS: TEMP 98.2; BMI 35.4
[2017-04-18 12:24] VITALS: BP 131/87; PULSE 89
== END 2017-04-18 13:14 | disposition other institution (70) ==
LOC: JER 09:49
PROC: 3E0233Z Introduction of Anti-inflammatory into Muscle, Percutaneous Approach (ICD-10-PCS; principal; 2017-04-18)
DX: S30.0XXA Contusion of lower back and pelvis, initial encounter (principal); S10.93XA Contusion of unspecified part of neck, initial encounter; W07.XXXA Fall from chair, initial encounter; Y93.89 Activity, other specified; Y92.238 Other place in hospital as the place of occurrence of the external cause; Y99.8 Other external cause status; F16.10 Hallucinogen abuse, uncomplicated; F20.9 Schizophrenia, unspecified; F17.210 Nicotine dependence, cigarettes, uncomplicated
CPT/HCPCS: 70450-TC; 72125-TC; 72131-TC; 96372; 99282-25

== ENCOUNTER 2019-01-15 18:47 | Inpatient (IN) | payer MEDICARE, OTHER ==
[2019-01-15 21:30] VITALS: BMI 31.2
--- NOTE | 2019-01-15 22:16 | HP ---
CIWA Score Nausea/Vomitin-No Nausea/No Vomiting Muscle Tremors: 4-Moderate,w/Arms Extend Anxiety: 3 Agitation: 4-Moderately Restless Paroxysmal Sweats: No Perspiration Orientation: 0-Oriented Tacttile Disturbances: 0-None Auditory Disturbances: 0-None Visual Disturbances: 0-None Headache: 1-Very Mild CIWA-Ar Total Score: 12 - Admission Criteria OASAS Guidelines: Admission for Medically Managed Detox: Requires at least one of the followin. CIWA greater than 12 2. Seizures within the past 24 hours 3. Delirium tremens within the past 24 hours 4. Hallucinations within the past 24 hours 5. Acute intervention needed for co occurring medical disorder 6. Acute intervention needed for co occurring psychiatric disorder 7. Severe withdrawal that cannot be handled at a lower level of care (continued vomiting, continued diarrhea, abnormal vital signs) requiring intravenous medication and/or fluids 8. Patient presents the following: CIWA greater than 12 Admission Criteria Met: Admission criteria met Admission ROS [facility] Chief Complaint: Alcohol withdrawal. Allergies/Adverse Reactions: Allergies Allergy/AdvReac Type Severity Reaction Status Date / Time No Known Allergies Allergy Verified 01/15/19 21:22 History of Present Illness: Here for alcohol detox. States also uses PCP and marijuana. Alcohol use began at age 18. Current use 1 pint + 10 cans daily and sometimes more. PCP use began at age 18. Marijuana use began at age 15. Nicotine use began at age 15. Denies seizures, blackouts or overdoses. PMHx: Denies significant PMH MHHx: Schizophrenia.(Last took meds 1 yr ago) Denies depression. Denies thoughts of harming self or others. States last saw a MH Provider 2 years ago) Search Terms: Kendrick Rj, 1970 Search Date: 01/15/2019 10:24:46 PM The Drug Utilization Report below displays all of the controlled substance prescriptions, if any, that your patient has filled in the last twelve months. The information displayed on this report is compiled from pharmacy submissions to the Department, and accurately reflects the information as submitted by the pharmacies. This report was requested by: Kiara Perez | Reference #: [id number] There are no results for the search terms that you entered. Exam Limitations: No Limitations - Ebola screening Have you traveled outside of the country in the last 21 days: No Have you had contact with anyone from an Ebola affected area: No Have you been sick,other than usual withdrawal symptoms: No (Denies recent measles exposure) Do you have a fever: No - Review of Systems Constitutional: Chills EENT: reports: Blurred Vision Respiratory: reports: No Symptoms reported Cardiac: reports: No Symptoms Reported GI: reports: No Symptoms Reported : reports: No Symptoms Reported Musculoskeletal: reports: No Symptoms Reported Integumentary: reports: No Symptoms Reported Neuro: reports: Headache (slight - frontal), Tremors Endocrine: reports: No Symptoms Reported Hematology: reports: No Symptoms Reported Psychiatric: reports: Orientated x3, Agitated, Anxious Patient History - Patient Medical History Hx Anemia: No Hx Asthma: No Hx Chronic Obstructive Pulmonary Disease (COPD): No Hx Cancer: No Hx Cardiac Disorders: No Hx Congestive Heart Failure: No Hx Hypertension: No Hx Hypercholesterolemia: No Hx Pacemaker: No HX Cerebrovascular Accident: No Hx Seizures: No Hx Dementia: No Hx Diabetes: No Hx Gastrointestinal Disorders: No Hx Liver Disease: No Hx Genitourinary Disorders: No Hx Sexually Transmitted Disorders: No Hx Renal Disease (ESRD): No Hx Thyroid Disease: No Hx Human Immunodeficiency Virus (HIV): No Hx Hepatitis C: No Hx Depression: Yes Hx Suicide Attempt: No Hx Bipolar Disorder: No Hx Schizophrenia: Yes - Patient Surgical History Past Surgical History: Yes Hx Neurologic Surgery: No Hx Cataract Extraction: No Hx Cardiac Surgery: No Hx Lung Surgery: No Hx Breast Surgery: No Hx Breast Biopsy: No Hx Abdominal Surgery: No Hx Appendectomy: No Hx Cholecystectomy: No Hx Genitourinary Surgery: No Hx Section: No Hx Orthopedic Surgery: No Other Surgical History: left lower abdomen skin graft unknown time Anesthesia Reaction: No - PPD History Previous Implant?: Yes Documented Results: Negative w/proof Implanted On Prior [facility] Admission?: Yes Date: 05/30/16 PPD to be Administered?: Yes - Smoking Cessation Smoking history: Current every day smoker Have you smoked in the past 12 months: Yes Aproximately how many cigarettes per day: 20 Cigars Per Day: 1 Hx Chewing Tobacco Use: No Initiated information on smoking cessation: Yes 'Breaking Loose' booklet given: 01/15/19 - Substance & Tx. History Hx Alcohol Use: Yes Hx Substance Use: Yes Substance Use Type: Alcohol, Cocaine Hx Substance Use Treatment: Yes (detox, rehab, out-patient program) - Substances abused Alcohol Substance route: Oral Frequency: Daily Amount used: liquor- 3 pints, beer- 2 six pack Age of first use: 18 Date of last use: 01/15/19 Family Disease History - Family Disease History Family Disease History: Diabetes: Mother, Other: Father (never met), Brother ( NO CONTACT) Admission Physical Exam [facility] - Vital Signs Vital Signs: Vital Signs - 24 hr 01/15/19 01/15/19 21:28 21:30 Temperature 97.6 F 97.6 F Pulse Rate 78 78 Respiratory 18 18 Rate Blood Pressure 137/68 137/68 - Physical General Appearance: Yes: Nourished, Mild Distress, Tremorous, Anxious HEENTM: Yes: EOMI, Hearing grossly Normal, Normocephalic, LEOBARDO, Pharynx Normal ( Enlarged epiglotis), Other (Bilateral Scleral erythema.) Respiratory: Yes: Lungs Clear, Normal Breath Sounds, No Respiratory Distress Neck: Yes: No masses,lesions,Nodules, Supple Breast: Yes: Breast Exam Deferred Cardiology: Yes: Regular Rhythm, Regular Rate, S1, S2 Abdominal: Yes: Non Tender, Soft, Increased Bowel Sounds, Protuberent ( Increased abdominal adiposity) Genitourinary: Yes: Within Normal Limits Back: Yes: Normal Inspection Musculoskeletal: Yes: full range of Motion, Gait Steady Extremities: Yes: Normal Capillary Refill, Tremors (gross tremors upon arm elevation) Neurological: Yes: tunneller II-XII NML intact, Fully Oriented, Alert, Motor Strength 5/5, Depressed Affect, Other (Responses to questions changes i.e when asked about when started drinking alcohol states" 20, 18, 14, 16.) Integumentary: Yes: Normal Color, Warm Lymphatic: Yes: Within Normal Limits - Diagnostic (1) Alcohol dependence with uncomplicated withdrawal Current Visit: Yes Status: Acute (2) Cannabis use disorder, moderate, dependence Current Visit: Yes Status: Acute Cleared for Admission [facility] - Detox or Rehab [facility] Level of Care: Medically Managed Detox Regimen/Protocol: Librium Claeared for Rehab Admission: No Breathalyzer - Breathalyzer Breathalyzer: 0 Urine Drug Screen - Test Device Lot number: [id number] Expiration date: 10/15/20 - Control Is test valid?: Yes - Results Drug screen NEGATIVE: No Urine drug screen results: THC-Marijuana, MTD-Methadone Inpatient Rehab Admission - Rehab Decision to Admit Inpatient rehab admission?: No
[2019-01-15] MEDS ORDERED: NICOTINE POLACRILEX 2 MG GUM BUC PRN (22:41)
[2019-01-15] MEDS ORDERED: chlordiazePOXIDE HCL 25 MG CAPSULE PO PRN (22:41)
[2019-01-15] MEDS ORDERED: MAG HYDROX/AL HYDROX/SIMETH 30 ML UNIT-DOSE CUP PO PRN (22:41)
[2019-01-15] MEDS ORDERED: METHOCARBAMOL 500 MG TABLET PO PRN (22:41)
[2019-01-15] MEDS ORDERED: MAGNESIUM HYDROX 2400MG/30ML ORAL SUSPENSION 30 ML CUP PO PRN (22:41)
[2019-01-15] MEDS ORDERED: IBUPROFEN 400 MG TABLET (FP) PO PRN (22:41)
[2019-01-15] MEDS ORDERED: MELATONIN 5 MG TABLETS PO PRN (22:41)
[2019-01-15] MEDS ORDERED: MAGNESIUM CITRATE 300 ML BOTTLE PO PRN (22:41)
[2019-01-15] MEDS ORDERED: BISMUTH SUBSALICYLATE 524 MG/30 ML UD PO PRN (22:41)
[2019-01-15] MEDS ORDERED: ACETAMINOPHEN 325 MG TABLET (FP) PO PRN ×2 (22:41)
[2019-01-15] MEDS ORDERED: MENTHOL/PHENOL 1 EACH UD MM PRN (22:41)
[2019-01-15] MEDS ORDERED: traZODone HCL 50 MG TABLET (FP) PO ONE (22:44)
[2019-01-15] MEDS: chlordiazePOXIDE HCL 25 MG CAPSULE PO SCH (23:53)
[2019-01-16] MEDS: chlordiazePOXIDE HCL 25 MG CAPSULE PO SCH ×4 (06:03→23:37)
[2019-01-16] MEDS: PRENATAL VITAMINS W/ FOLIC ACID TABLET (FP) PO SCH (11:21)
[2019-01-16] MEDS: NICOTINE 21 MG/24 HOURS TOPICAL PATCH TD SCH (11:21)
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
[2019-01-16 11:34] LABS: ALBUMIN 3.5 g/dl (3.4-5.0); BILIRUBIN,TOTAL 0.3 mg/dL (0.2-1); CREATININE 1.1 mg/dL (0.55-1.3); POTASSIUM 4.1 mmol/L (3.5-5.1); TOT PROT 6.9 g/dl (6.4-8.2)
--- NOTE | 2019-01-16 11:49 | PN ---
S CIWA - CIWA Score Nausea/Vomitin-No Nausea/No Vomiting Muscle Tremors: 2 Anxiety: 2 Agitation: 1-Slight > Activity Paroxysmal Sweats: 2 Orientation: 0-Oriented Tacttile Disturbances: 0-None Auditory Disturbances: 0-None Visual Disturbances: 0-None Headache: 3-Moderate CIWA-Ar Total Score: 10 [facility] Progress Note (SOAP) Subjective: c/o sweats, headache, anxiety, and tremors. Objective: 01/16/19 11:48 Vital Signs 01/16/19 06:00 Temperature 97.3 F L Pulse Rate 91 H Respiratory 18 Rate Blood Pressure 136/87 Laboratory Last Values WBC Cancelled 01/16/19 07:35 Corrected WBC (auto) Cancelled 01/16/19 07:35 RBC Cancelled 01/16/19 07:35 Hgb Cancelled 01/16/19 07:35 Hct Cancelled 01/16/19 07:35 MCV Cancelled 01/16/19 07:35 MCH Cancelled 01/16/19 07:35 MCHC Cancelled 01/16/19 07:35 RDW Cancelled 01/16/19 07:35 Plt Count Cancelled 01/16/19 07:35 MPV Cancelled 01/16/19 07:35 Manual Slide Review Cancelled 01/16/19 07:35 Platelet Comment Cancelled 01/16/19 07:35 Sodium 143 mmol/L (136-145) 01/16/19 07:35 Potassium 4.1 mmol/L (3.5-5.1) 01/16/19 07:35 Chloride 108 mmol/L (98-107) H 01/16/19 07:35 Carbon Dioxide 25 mmol/L (21-32) 01/16/19 07:35 Anion Gap 10 MMOL/L (8-16) 01/16/19 07:35 BUN 24 mg/dL (7-18) H 01/16/19 07:35 Creatinine 1.1 mg/dL (0.55-1.3) 01/16/19 07:35 Est GFR (CKD-EPI)AfAm 92.16 01/16/19 07:35 Est GFR (CKD-EPI)NonAf 79.52 01/16/19 07:35 Random Glucose 108 mg/dL (74-106) H 01/16/19 07:35 Calcium 9.0 mg/dL (8.5-10.1) 01/16/19 07:35 Total Bilirubin 0.3 mg/dL (0.2-1) 01/16/19 07:35 AST 18 U/L (15-37) 01/16/19 07:35 ALT 29 U/L (13-61) 01/16/19 07:35 Alkaline Phosphatase 103 U/L (45-117) 01/16/19 07:35 Total Protein 6.9 g/dl (6.4-8.2) 01/16/19 07:35 Albumin 3.5 g/dl (3.4-5.0) 01/16/19 07:35 Labs noted. Awaiting for hematology results. Assessment: 01/16/19 11:49 AOX3, in no acute distress. full rom, ambulating in the unit withdrawal symptoms. Plan: continue detox increase fluids.
[2019-01-16] MEDS: risperiDONE 1 MG TABLET (FP) PO SCH ×2 (12:37→23:37)
[2019-01-16] MEDS: traZODone HCL 50 MG TABLET (FP) PO SCH (23:37)
[2019-01-16] MEDS: THIAMINE HCL 100 MG TABLET (FP) PO SCH (23:37)
[2019-01-17] MEDS: chlordiazePOXIDE HCL 25 MG CAPSULE PO SCH ×3 (05:56→18:22)
[2019-01-17] MEDS: NICOTINE 21 MG/24 HOURS TOPICAL PATCH TD SCH (10:16)
[2019-01-17] MEDS: risperiDONE 1 MG TABLET (FP) PO SCH ×2 (10:17→23:17)
[2019-01-17] MEDS: PRENATAL VITAMINS W/ FOLIC ACID TABLET (FP) PO SCH (10:17)
[2019-01-17 10:59] LABS: BASO % 0.9 % (0-2.0); EOS % 1.4 % (0-4.5); HEMATOCRIT 41.2 % (35.4-49); HEMOGLOBIN 13.7 GM/dL (11.7-16.9); LYMPH % 19.2 % (8-40); MCH 31.5 pg (25.7-33.7); MCHC 33.3 g/dl (32.0-35.9); MEAN CELL VOLUME 94.4 fl (80-96); MEAN PLT VOLUME 9.5 fl (7.5-11.1); MONO % 6.9 % (3.8-10.2); NEUT % 71.6 % (42.8-82.8); PLATELET COUNT 242 K/MM3 (134-434); RBC 4.36 M/mm3 (4.00-5.60); RDW 14.9 % (11.9-15.9); WHITE BLOOD COUNT 7.5 K/mm3 (4.0-10.0)
--- NOTE | 2019-01-17 15:14 | PN ---
[facility] CIWA - CIWA Score Nausea/Vomitin-Mild Nausea/No Vomiting Muscle Tremors: 3 Anxiety: 3 Agitation: 3 Paroxysmal Sweats: 3 Orientation: 0-Oriented Tacttile Disturbances: 0-None Auditory Disturbances: 0-None Visual Disturbances: 0-None Headache: 0-None Present CIWA-Ar Total Score: 13 S Progress Note (SOAP) Subjective: Sweating, chills, tremor, headache Objective: 01/17/19 15:13 Last Vital Signs Temp Pulse Resp BP Pulse Ox 98.1 F 91 H 18 137/84 01/17/19 13:39 01/17/19 13:39 01/17/19 13:39 01/17/19 13:39 Laboratory Tests 01/16/19 01/16/19 01/16/19 07:35 07:35 07:35 WBC Cancelled Corrected WBC (auto) Cancelled RBC Cancelled Hgb Cancelled Hct Cancelled MCV Cancelled MCH Cancelled MCHC Cancelled RDW Cancelled Plt Count Cancelled MPV Cancelled Absolute Neuts (auto) Neutrophils % Lymphocytes % Monocytes % Eosinophils % Basophils % Nucleated RBC % Manual Slide Review Cancelled Platelet Comment Cancelled Sodium 143 Potassium 4.1 Chloride 108 H Carbon Dioxide 25 Anion Gap 10 BUN 24 H Creatinine 1.1 Est GFR (CKD-EPI)AfAm 92.16 Est GFR (CKD-EPI)NonAf 79.52 Random Glucose 108 H Calcium 9.0 Total Bilirubin 0.3 AST 18 ALT 29 Alkaline Phosphatase 103 Total Protein 6.9 Albumin 3.5 RPR Titer Nonreactive 01/17/19 07:40 WBC 7.5 Corrected WBC (auto) RBC 4.36 Hgb 13.7 Hct 41.2 MCV 94.4 MCH 31.5 MCHC 33.3 RDW 14.9 Plt Count 242 MPV 9.5 Absolute Neuts (auto) 5.4 Neutrophils % 71.6 Lymphocytes % 19.2 Monocytes % 6.9 Eosinophils % 1.4 Basophils % 0.9 Nucleated RBC % 0 Manual Slide Review Platelet Comment Sodium Potassium Chloride Carbon Dioxide Anion Gap BUN Creatinine Est GFR (CKD-EPI)AfAm Est GFR (CKD-EPI)NonAf Random Glucose Calcium Total Bilirubin AST ALT Alkaline Phosphatase Total Protein Albumin RPR Titer Labs reviewed: bun 24 Assessment: 01/17/19 15:14 Withdrawal symptoms Noted with azotemia Plan: Continue detox Azotemia: encouraged PO water hydration
[2019-01-17] MEDS ORDERED: chlordiazePOXIDE HCL 10 MG CAPSULE PO PRN (23:00)
[2019-01-17] MEDS: THIAMINE HCL 100 MG TABLET (FP) PO SCH (23:17)
[2019-01-17] MEDS: traZODone HCL 50 MG TABLET (FP) PO SCH (23:17)
[2019-01-17] MEDS: chlordiazePOXIDE HCL 10 MG CAPSULE PO SCH (23:18)
[2019-01-18] MEDS: chlordiazePOXIDE HCL 10 MG CAPSULE PO SCH ×2 (05:23→11:03)
[2019-01-18 06:05] VITALS: BP 109/73; PULSE 100; TEMP 97.3
--- NOTE | 2019-01-18 08:51 | DS ---
[facility] Detox Discharge Summary Admission Date: 01/15/19 Discharge Date: 01/18/19 - History Present History: Opioid Dependence, Pcp Dependence - Physical Exam Results Vital Signs: Vital Signs Temperature 97.3 F L 01/18/19 06:05 Pulse Rate 100 H 01/18/19 06:05 Respiratory Rate 20 01/18/19 06:05 Blood Pressure 109/73 01/18/19 06:05 O2 Sat by Pulse Oximetry (%) - Treatment Hospital Course: Detox Protocol Followed, Detoxed Safely, Responded well, Discharged Condition Good, Rehab Referral Accepted - Medication Discharge Medications: Ambulatory Orders Risperidone [Risperdal -] 4 mg PO HS #30 tablet 05/31/16 traZODone HCL [Desyrel -] 100 mg PO HS #30 tablet 05/31/16 - Diagnosis (1) Alcohol dependence with uncomplicated withdrawal Current Visit: Yes Status: Chronic (2) Cannabis use disorder, moderate, dependence Current Visit: Yes Status: Chronic (3) Schizophrenia Current Visit: Yes Status: Chronic Qualifiers: Schizophrenia type: disorganized schizophrenia Qualified Code(s): F20.1 - Disorganized schizophrenia (4) Fall Current Visit: No Status: Acute Qualifiers: Encounter type: initial encounter Qualified Code(s): W19.XXXA - Unspecified fall, initial encounter (5) Multiple contusions Current Visit: No Status: Acute (6) Nicotine dependence Current Visit: Yes Status: Acute Qualifiers: Nicotine product type: cigarettes Substance use status: uncomplicated Qualified Code(s): F17.210 - Nicotine dependence, cigarettes, uncomplicated (7) Phencyclidine dependence Current Visit: Yes Status: Chronic - AMA Did Patient Leave Against Medical Advice: No (pt declined rehab; going to [facility] [place] [facility]. )
[2019-01-18] MEDS: NICOTINE 21 MG/24 HOURS TOPICAL PATCH TD SCH (11:00)
[2019-01-18] MEDS: PRENATAL VITAMINS W/ FOLIC ACID TABLET (FP) PO SCH (11:01)
[2019-01-18] MEDS: risperiDONE 1 MG TABLET (FP) PO SCH (11:02)
[2019-01-18 11:47] LABS: URINE APPEARANCE CLEAR; URINE BILIRUBIN NEGATIVE (NEGATIVE); URINE COLOR YELLOW; URINE GLUCOSE (UA) NEGATIVE (NEGATIVE); URINE KETONE NEGATIVE (NEGATIVE); URINE LEUK ESTERASE NEGATIVE (NEGATIVE); URINE NITRITE NEGATIVE (NEGATIVE); URINE PROTEIN NEGATIVE (NEGATIVE); URINE UROBILINOGEN 0.2 mg/dL (0.2-1.0)
[2019-01-18] MEDS ORDERED: chlordiazePOXIDE HCL 10 MG CAPSULE PO SCH (23:00)
--- NOTE | 2019-01-19 12:05 | EKG ---
Test Reason : Blood Pressure : / mmHG Vent. Rate : 092 BPM Atrial Rate : 092 BPM P-R Int : 142 ms QRS Dur : 082 ms QT Int : 346 ms P-R-T Axes : 073 058 036 degrees QTc Int : 427 ms NORMAL SINUS RHYTHM POSSIBLE LEFT ATRIAL ENLARGEMENT BORDERLINE ECG WHEN COMPARED WITH ECG OF 31-MAR-2017 20:42, NO SIGNIFICANT CHANGE WAS FOUND Confirmed by Juvencio Chávez MD ([id number]) on 01/19/2019 12:04:34 PM Referred By: Confirmed By:Juvencio Chávez MD
== END 2019-01-18 09:05 | disposition home or self-care (01) | DRG 897 ==
LOC: YASAS 18:47 → Y6N 23:02
PROVIDERS: ADMIT Surgery; ATTEND Surgery
PROC: HZ2ZZZZ Detoxification Services for Substance Abuse Treatment (ICD-10-PCS; principal; 2019-01-15)
DX: F10.230 Alcohol dependence with withdrawal, uncomplicated (principal); F16.20 Hallucinogen dependence, uncomplicated; F20.1 Disorganized schizophrenia; F11.23 Opioid dependence with withdrawal; F12.20 Cannabis dependence, uncomplicated; F17.210 Nicotine dependence, cigarettes, uncomplicated; R79.89 Other specified abnormal findings of blood chemistry; T14.8XXA Other injury of unspecified body region, initial encounter; Z91.81 History of falling
CPT/HCPCS: 36415; 80053; 81003; 85025; 86593; 93005; 93010; J2794

== ENCOUNTER 2019-01-28 08:07 | Inpatient (IN) | payer OTHER ==
[2019-01-28 08:57] VITALS: BMI 30.1
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
[2019-01-28] MEDS ORDERED: MELATONIN 5 MG TABLETS PO PRN (09:46)
[2019-01-28] MEDS ORDERED: MAGNESIUM CITRATE 300 ML BOTTLE PO PRN (09:46)
[2019-01-28] MEDS ORDERED: ACETAMINOPHEN 325 MG TABLET (FP) PO PRN ×2 (09:46)
[2019-01-28] MEDS ORDERED: MAGNESIUM HYDROX 2400MG/30ML ORAL SUSPENSION 30 ML CUP PO PRN (09:46)
[2019-01-28] MEDS ORDERED: hydrOXYzine PAMOATE 25 MG CAPSULE (FP) PO PRN (09:46)
[2019-01-28] MEDS ORDERED: chlordiazePOXIDE HCL 25 MG CAPSULE PO PRN (09:46)
[2019-01-28] MEDS ORDERED: MENTHOL/PHENOL 1 EACH UD MM PRN (09:46)
[2019-01-28] MEDS ORDERED: IBUPROFEN 400 MG TABLET (FP) PO PRN (09:46)
[2019-01-28] MEDS ORDERED: NICOTINE POLACRILEX 2 MG GUM BUC PRN (09:46)
[2019-01-28] MEDS ORDERED: MAG HYDROX/AL HYDROX/SIMETH 30 ML UNIT-DOSE CUP PO PRN (09:46)
[2019-01-28] MEDS ORDERED: BISMUTH SUBSALICYLATE 262 MG/15 ML BTL PO PRN (09:46)
[2019-01-28] MEDS ORDERED: METHOCARBAMOL 500 MG TABLET PO PRN (09:46)
[2019-01-28] MEDS: PRENATAL VITAMINS W/ FOLIC ACID TABLET (FP) PO SCH (10:44)
[2019-01-28] MEDS: NICOTINE 21 MG/24 HOURS TOPICAL PATCH TD SCH (10:44)
[2019-01-28 11:58] LABS: ALBUMIN 3.6 g/dl (3.4-5.0); BILIRUBIN,TOTAL 0.5 mg/dL (0.2-1); BLOOD UREA NITROGEN 20.5 mg/dL (7-18); CALCIUM 8.7 mg/dL (8.5-10.1); POTASSIUM 3.8 mmol/L (3.5-5.1); TOT PROT 6.8 g/dl (6.4-8.2)
[2019-01-28 12:02] LABS: HEMATOCRIT 37.6 % (35.4-49); HEMOGLOBIN 12.6 GM/dL (11.7-16.9); MCH 31.5 pg (25.7-33.7); MCHC 33.5 g/dl (32.0-35.9); MEAN CELL VOLUME 93.9 fl (80-96); MEAN PLT VOLUME 8.8 fl (7.5-11.1); RDW 14.6 % (11.9-15.9); WHITE BLOOD COUNT 6.8 K/mm3 (4.0-10.0)
[2019-01-28 12:14] LABS: PLATELET COUNT 269 K/MM3 (134-434)
[2019-01-28] MEDS: chlordiazePOXIDE HCL 25 MG CAPSULE PO SCH ×2 (17:48→22:44)
[2019-01-28 18:55] LABS: URINE APPEARANCE CLOUDY; URINE COLOR YELLOW
[2019-01-28 18:56] LABS: URINE BILIRUBIN NEGATIVE (NEGATIVE); URINE GLUCOSE (UA) NEGATIVE (NEGATIVE)
[2019-01-28 18:57] LABS: URINE KETONE NEGATIVE (NEGATIVE)
[2019-01-28 18:58] LABS: PH,URINE > 9.0 (5.0-8.0); URINE PROTEIN 1+ (NEGATIVE)
[2019-01-28 18:59] LABS: URINE LEUK ESTERASE 1+ (NEGATIVE); URINE NITRITE NEGATIVE (NEGATIVE)
[2019-01-28 21:00] LABS: URINE BACTERIA MANY /hpf (NEGATIVE)
[2019-01-28] MEDS: THIAMINE HCL 100 MG TABLET (FP) PO SCH (22:44)
[2019-01-29] MEDS: chlordiazePOXIDE HCL 25 MG CAPSULE PO SCH ×4 (06:02→22:39)
[2019-01-29] MEDS: PRENATAL VITAMINS W/ FOLIC ACID TABLET (FP) PO SCH (10:37)
[2019-01-29] MEDS: NICOTINE 21 MG/24 HOURS TOPICAL PATCH TD SCH (10:37)
--- NOTE | 2019-01-29 14:30 | PN ---
S CIWA - CIWA Score Nausea/Vomitin-Mild Nausea/No Vomiting Muscle Tremors: 1-None Visible, but [place] Anxiety: 1-Mildly Anxious Agitation: 3 Paroxysmal Sweats: 1-Minimal Palms Moist Orientation: 0-Oriented Tacttile Disturbances: 1-Very Mild Itch/Numbness Auditory Disturbances: 0-None Visual Disturbances: 0-None Headache: 0-None Present CIWA-Ar Total Score: 8 BHS Progress Note (SOAP) Subjective: interrupted sleep, sweats, irritated Objective: 01/29/19 14:28 Vital Signs Temperature 98.6 F 01/29/19 14:06 Pulse Rate 66 01/29/19 14:06 Respiratory Rate 18 01/29/19 14:06 Blood Pressure 100/70 01/29/19 14:06 O2 Sat by Pulse Oximetry (%) Laboratory Tests 01/28/19 01/28/19 01/28/19 10:00 10:00 10:00 WBC 6.8 RBC 4.00 Hgb 12.6 Hct 37.6 MCV 93.9 MCH 31.5 MCHC 33.5 RDW 14.6 Plt Count 269 MPV 8.8 Sodium 141 Potassium 3.8 Chloride 107 Carbon Dioxide 29 Anion Gap 6 L BUN 20.5 H Creatinine 1.0 Est GFR (CKD-EPI)AfAm 103.42 Est GFR (CKD-EPI)NonAf 89.23 Random Glucose 91 Calcium 8.7 Total Bilirubin 0.5 AST 20 ALT 33 Alkaline Phosphatase 102 Total Protein 6.8 Albumin 3.6 Urine Color Urine Appearance Urine pH Ur Specific [place] Urine Protein Urine Glucose (UA) Urine Ketones Urine Blood Urine Nitrite Urine Bilirubin Urine Urobilinogen Ur Leukocyte Esterase Urine WBC (Auto) Urine RBC (Auto) Urine Bacteria (Auto) RPR Titer Nonreactive 01/28/19 13:00 WBC RBC Hgb Hct MCV MCH MCHC RDW Plt Count MPV Sodium Potassium Chloride Carbon Dioxide Anion Gap BUN Creatinine Est GFR (CKD-EPI)AfAm Est GFR (CKD-EPI)NonAf Random Glucose Calcium Total Bilirubin AST ALT Alkaline Phosphatase Total Protein Albumin Urine Color Yellow Urine Appearance Cloudy Urine pH > 9.0 H Ur Specific [place] 1.024 Urine Protein 1+ H Urine Glucose (UA) Negative Urine Ketones Negative Urine Blood 2+ H Urine Nitrite Negative Urine Bilirubin Negative Urine Urobilinogen 1.0 Ur Leukocyte Esterase 1+ H Urine WBC (Auto) 2-5 Urine RBC (Auto) 2-5 Urine Bacteria (Auto) Many RPR Titer pt aox3 in nad eatting at bed side , irritable Assessment: 01/29/19 14:29 withdrawal sx's Plan: cont. detox increase fluids
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
[2019-01-29] MEDS: THIAMINE HCL 100 MG TABLET (FP) PO SCH (22:38)
[2019-01-29] MEDS: risperiDONE 1 MG TABLET (FP) PO SCH (22:38)
[2019-01-29] MEDS: traZODone HCL 100 MG TABLET (FP) PO SCH (22:38)
[2019-01-30] MEDS: chlordiazePOXIDE HCL 25 MG CAPSULE PO SCH ×2 (05:32→10:27)
[2019-01-30] MEDS: PRENATAL VITAMINS W/ FOLIC ACID TABLET (FP) PO SCH (10:27)
[2019-01-30] MEDS: NICOTINE 21 MG/24 HOURS TOPICAL PATCH TD SCH (10:27)
[2019-01-30] MEDS: risperiDONE 1 MG TABLET (FP) PO SCH ×2 (10:27→22:23)
--- NOTE | 2019-01-30 12:24 | PN ---
[facility] CIWA - CIWA Score Nausea/Vomitin-No Nausea/No Vomiting Muscle Tremors: 2 Anxiety: 2 Agitation: 2 Paroxysmal Sweats: 2 Orientation: 0-Oriented Tacttile Disturbances: 0-None Auditory Disturbances: 0-None Visual Disturbances: 0-None Headache: 2-Mild CIWA-Ar Total Score: 10 S Progress Note (SOAP) Subjective: c/o sweats, headache, anxiety, and shakes. Objective: 01/30/19 12:23 Vital Signs 01/30/19 09:39 Temperature 97.0 F L Pulse Rate 92 H Respiratory 20 Rate Blood Pressure 126/90 Laboratory Last Values WBC 6.8 K/mm3 (4.0-10.0) 01/28/19 10:00 RBC 4.00 M/mm3 (4.00-5.60) 01/28/19 10:00 Hgb 12.6 GM/dL (11.7-16.9) 01/28/19 10:00 Hct 37.6 % (35.4-49) 01/28/19 10:00 MCV 93.9 fl (80-96) 01/28/19 10:00 MCH 31.5 pg (25.7-33.7) 01/28/19 10:00 MCHC 33.5 g/dl (32.0-35.9) 01/28/19 10:00 RDW 14.6 % (11.9-15.9) 01/28/19 10:00 Plt Count 269 K/MM3 (134-434) 01/28/19 10:00 MPV 8.8 fl (7.5-11.1) 01/28/19 10:00 Sodium 141 mmol/L (136-145) 01/28/19 10:00 Potassium 3.8 mmol/L (3.5-5.1) 01/28/19 10:00 Chloride 107 mmol/L (98-107) 01/28/19 10:00 Carbon Dioxide 29 mmol/L (21-32) 01/28/19 10:00 Anion Gap 6 MMOL/L (8-16) L 01/28/19 10:00 BUN 20.5 mg/dL (7-18) H 01/28/19 10:00 Creatinine 1.0 mg/dL (0.55-1.3) 01/28/19 10:00 Est GFR (CKD-EPI)AfAm 103.42 01/28/19 10:00 Est GFR (CKD-EPI)NonAf 89.23 01/28/19 10:00 Random Glucose 91 mg/dL (74-106) 01/28/19 10:00 Calcium 8.7 mg/dL (8.5-10.1) 01/28/19 10:00 Total Bilirubin 0.5 mg/dL (0.2-1) 01/28/19 10:00 AST 20 U/L (15-37) 01/28/19 10:00 ALT 33 U/L (13-61) 01/28/19 10:00 Alkaline Phosphatase 102 U/L (45-117) 01/28/19 10:00 Total Protein 6.8 g/dl (6.4-8.2) 01/28/19 10:00 Albumin 3.6 g/dl (3.4-5.0) 01/28/19 10:00 Urine Color Yellow 01/28/19 13:00 Urine Appearance Cloudy 01/28/19 13:00 Urine pH > 9.0 (5.0-8.0) H 01/28/19 13:00 Ur Specific [place] 1.024 (1.010-1.035) 01/28/19 13:00 Urine Protein 1+ (NEGATIVE) H 01/28/19 13:00 Urine Glucose (UA) Negative (NEGATIVE) 01/28/19 13:00 Urine Ketones Negative (NEGATIVE) 01/28/19 13:00 Urine Blood 2+ (NEGATIVE) H 01/28/19 13:00 Urine Nitrite Negative (NEGATIVE) 01/28/19 13:00 Urine Bilirubin Negative (NEGATIVE) 01/28/19 13:00 Urine Urobilinogen 1.0 mg/dL (0.2-1.0) 01/28/19 13:00 Ur Leukocyte Esterase 1+ (NEGATIVE) H 01/28/19 13:00 Urine WBC (Auto) 2-5 (NEGATIVE) 01/28/19 13:00 Urine RBC (Auto) 2-5 /hpf (0-4) 01/28/19 13:00 Urine Bacteria (Auto) Many /hpf (NEGATIVE) 01/28/19 13:00 RPR Titer Nonreactive (NONREACTIVE) 01/28/19 10:00 Labs noted. Assessment: 01/30/19 12:23 AOX3, in no acute distress Full ROM, ambulating in the unit. Withdrawal symptoms. Plan: continue detox. increase fluids.
[2019-01-30] MEDS ORDERED: chlordiazePOXIDE HCL 10 MG CAPSULE PO PRN (17:00)
[2019-01-30] MEDS: chlordiazePOXIDE HCL 10 MG CAPSULE PO SCH ×2 (20:20→22:23)
[2019-01-30] MEDS: THIAMINE HCL 100 MG TABLET (FP) PO SCH (22:23)
[2019-01-30] MEDS: traZODone HCL 100 MG TABLET (FP) PO SCH (22:23)
[2019-01-31] MEDS: chlordiazePOXIDE HCL 10 MG CAPSULE PO SCH (06:52)
[2019-01-31 09:06] VITALS: BP 138/67; PULSE 84; TEMP 96.9
--- NOTE | 2019-01-31 12:45 | DS ---
[facility] Detox Discharge Summary Admission Date: 01/28/19 Discharge Date: 01/31/19 - History Present History: Alcohol Dependence Pertinent Past History: SEE ABOVE - Physical Exam Results Vital Signs: Vital Signs Temperature 96.9 F L 01/31/19 09:05 Pulse Rate 84 01/31/19 09:05 Respiratory Rate 18 01/31/19 09:05 Blood Pressure 138/67 01/31/19 09:05 O2 Sat by Pulse Oximetry (%) Pertinent Admission Physical Exam Findings: ADMITTED IN ACUTE WITHDRAWAL - Treatment Hospital Course: Detox Protocol Followed, Detoxed Safely, Responded well - Medication Discharge Medications: Ambulatory Orders Risperidone [Risperdal -] 4 mg PO HS #30 tablet 05/31/16 traZODone HCL [Desyrel -] 100 mg PO HS #30 tablet 05/31/16 - Diagnosis (1) Alcohol dependence with uncomplicated withdrawal Current Visit: Yes Status: Acute (2) Cannabis use disorder, moderate, dependence Current Visit: Yes Status: Chronic (3) Phencyclidine dependence Current Visit: Yes Status: Chronic - AMA Did Patient Leave Against Medical Advice: No
[2019-01-31] MEDS ORDERED: chlordiazePOXIDE HCL 10 MG CAPSULE PO SCH (17:00)
== END 2019-01-31 09:25 | disposition home or self-care (01) | DRG 897 ==
LOC: YASAS 08:07 → Y3N 10:02
PROVIDERS: ADMIT Surgery; ATTEND Surgery
PROC: HZ2ZZZZ Detoxification Services for Substance Abuse Treatment (ICD-10-PCS; principal; 2019-01-28)
DX: F10.230 Alcohol dependence with withdrawal, uncomplicated (principal); F16.20 Hallucinogen dependence, uncomplicated; F20.1 Disorganized schizophrenia; F12.20 Cannabis dependence, uncomplicated; F17.210 Nicotine dependence, cigarettes, uncomplicated; G47.00 Insomnia, unspecified; H53.8 Other visual disturbances; Z94.5 Skin transplant status; Z91.19 Patient's noncompliance with other medical treatment and regimen
CPT/HCPCS: 36415; 80053; 81003; 85027; 86593; J2794

== ENCOUNTER 2019-02-09 08:06 | Inpatient (IN) | payer OTHER ==
[2019-02-09 08:54] VITALS: BMI 31.0
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
[2019-02-09] MEDS ORDERED: P-EPHED 60MG/TRIPROLIDI 2.5MG TABLET PO PRN (10:12)
[2019-02-09] MEDS ORDERED: MAGNESIUM HYDROX 2400MG/30ML ORAL SUSPENSION 30 ML CUP PO PRN (10:12)
[2019-02-09] MEDS ORDERED: hydrOXYzine PAMOATE 25 MG CAPSULE (FP) PO PRN (10:12)
[2019-02-09] MEDS ORDERED: MAG HYDROX/AL HYDROX/SIMETH 30 ML UNIT-DOSE CUP PO PRN (10:12)
[2019-02-09] MEDS ORDERED: IBUPROFEN 400 MG TABLET (FP) PO PRN (10:12)
[2019-02-09] MEDS ORDERED: MAGNESIUM CITRATE 300 ML BOTTLE PO PRN (10:12)
[2019-02-09] MEDS ORDERED: MENTHOL/PHENOL 1 EACH UD MM PRN (10:12)
[2019-02-09] MEDS ORDERED: ACETAMINOPHEN 325 MG TABLET (FP) PO PRN (10:12)
[2019-02-09] MEDS ORDERED: LOPERAMIDE HCL 2 MG CAPSULE PO PRN (10:12)
[2019-02-09 18:44] LABS: EPI CELLS 1.7 /HPF (0-5/HPF); HYALINE CASTS 18 /lpf (0-8); URINE APPEARANCE CLEAR; URINE BACTERIA >9000 /hpf (NEGATIVE); URINE BILIRUBIN NEGATIVE (NEGATIVE); URINE COLOR YELLOW; URINE GLUCOSE (UA) NEGATIVE (NEGATIVE); URINE KETONE NEGATIVE (NEGATIVE); URINE LEUK ESTERASE TRACE (NEGATIVE); URINE NITRITE NEGATIVE (NEGATIVE); URINE PROTEIN NEGATIVE (NEGATIVE); URINE RBC 3 /hpf (0-4); URINE WBC 7 /hpf (0-5)
[2019-02-09] MEDS: THIAMINE HCL 100 MG TABLET (FP) PO SCH (21:29)
[2019-02-09] MEDS ORDERED: MELATONIN 5 MG TABLETS PO PRN (22:00)
[2019-02-10] MEDS: PRENATAL VITAMINS W/ FOLIC ACID TABLET (FP) PO SCH (10:14)
[2019-02-10] MEDS ORDERED: PNEUMOCOCCAL 23 VACCINE 0.5 ML VIAL IM ONE (12:00)
[2019-02-10] MEDS ORDERED: PNEUMOC 13-VAL CONJ-DIP CRM/PF 0.5 ML DISP.SYRIN IM ONE (12:00)
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
[2019-02-10] MEDS: THIAMINE HCL 100 MG TABLET (FP) PO SCH (21:32)
[2019-02-10] MEDS: risperiDONE 1 MG TABLET (FP) PO SCH (21:33)
[2019-02-10] MEDS: traZODone HCL 100 MG TABLET (FP) PO SCH (21:33)
[2019-02-11] MEDS: PRENATAL VITAMINS W/ FOLIC ACID TABLET (FP) PO SCH (10:46)
[2019-02-11] MEDS: risperiDONE 1 MG TABLET (FP) PO SCH ×2 (10:46→21:29)
[2019-02-11] MEDS: traZODone HCL 100 MG TABLET (FP) PO SCH (21:29)
[2019-02-11] MEDS: THIAMINE HCL 100 MG TABLET (FP) PO SCH (21:29)
[2019-02-12 06:56] VITALS: BP 128/91; PULSE 83; TEMP 98.3
--- NOTE | 2019-02-12 07:50 | PN ---
[facility] Progress Note Note: patient did not want to complete treatment,stated he is doing well and would like to leave,all attempts to convince patient to stay with no avail, patient signed release ama,no suicidal,no homicidal,left the unit in stable and good condition,dr Garrett awared
--- NOTE | 2019-02-12 07:52 | PN ---
[facility] Progress Note Note: Notified by nursing staff of patient decision to leave treatment against medical advice. Scripts for 30 days supply of medications(Risperdal 1 mg/bid, Trazadone 100 mg/hs)are electronically transmitted to [facility] at [address] [place] [address]
--- NOTE | 2019-02-12 07:56 | PN ---
S Progress Note Note: this note is for the discharge from rehab date of admission 02/09/19 date of discharge 02/12/19 diagnosis alchol abused cannabis abused pcp abused nicotine dependence schizophrenia patient signed release ama left the unit in stable condition Vital Signs Temperature 98.3 F 02/12/19 06:55 Pulse Rate 83 02/12/19 06:55 Respiratory Rate 20 02/12/19 06:55 Blood Pressure 128/91 02/12/19 06:55 O2 Sat by Pulse Oximetry (%) dr garcia psychiatrist awared
== END 2019-02-12 08:00 | disposition left against medical advice (07) | DRG 894 ==
LOC: YASAS 08:06 → Y3W 09:56
PROVIDERS: ADMIT Neuromusculoskeletal Medicine & OMM; ATTEND Neuromusculoskeletal Medicine & OMM
PROC: HZ42ZZZ Group Counseling for Substance Abuse Treatment, Cognitive-Behavioral (ICD-10-PCS; principal; 2019-02-09)
DX: F10.20 Alcohol dependence, uncomplicated (principal); F16.20 Hallucinogen dependence, uncomplicated; F12.20 Cannabis dependence, uncomplicated; F17.210 Nicotine dependence, cigarettes, uncomplicated; F32.9 Major depressive disorder, single episode, unspecified; F20.9 Schizophrenia, unspecified; G47.00 Insomnia, unspecified; Z91.19 Patient's noncompliance with other medical treatment and regimen
CPT/HCPCS: 36415; 81003; 87389; 90732; G0009; J2794

== ENCOUNTER 2019-04-20 08:26 | Inpatient (IN) | payer OTHER ==
[2019-04-20 09:13] VITALS: BMI 30.1
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
[2019-04-20] MEDS ORDERED: P-EPHED 60MG/TRIPROLIDI 2.5MG TABLET PO PRN (10:29)
[2019-04-20] MEDS ORDERED: MAG HYDROX/AL HYDROX/SIMETH 30 ML UNIT-DOSE CUP PO PRN (10:29)
[2019-04-20] MEDS ORDERED: MENTHOL/PHENOL 1 EACH UD MM PRN (10:29)
[2019-04-20] MEDS ORDERED: guaiFENesin 200 MG/10 ML 10 ML UNIT-DOSE CUPS PO PRN (10:29)
[2019-04-20] MEDS ORDERED: MAGNESIUM CITRATE 300 ML BOTTLE PO PRN (10:29)
[2019-04-20] MEDS ORDERED: NICOTINE POLACRILEX 2 MG GUM BUC PRN (10:29)
[2019-04-20] MEDS ORDERED: IBUPROFEN 400 MG TABLET (FP) PO PRN (10:29)
[2019-04-20] MEDS ORDERED: MAGNESIUM HYDROX 2400MG/30ML ORAL SUSPENSION 30 ML CUP PO PRN (10:29)
[2019-04-20] MEDS ORDERED: ACETAMINOPHEN 325 MG TABLET (FP) PO PRN (10:29)
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
[2019-04-20 14:37] LABS: HEMATOCRIT 39.1 % (35.4-49); HEMOGLOBIN 13.2 GM/dL (11.7-16.9); MCH 31.4 pg (25.7-33.7); MCHC 33.8 g/dl (32.0-35.9); MEAN CELL VOLUME 92.8 fl (80-96); MEAN PLT VOLUME 8.9 fl (7.5-11.1); PLATELET COUNT 297 K/MM3 (134-434); RBC 4.22 M/mm3 (4.00-5.60); RDW 14.4 % (11.9-15.9); WHITE BLOOD COUNT 8.9 K/mm3 (4.0-10.0)
[2019-04-20 14:51] LABS: ALBUMIN 3.8 g/dl (3.4-5.0); BILIRUBIN,TOTAL 0.3 mg/dL (0.2-1); BLOOD UREA NITROGEN 15.8 mg/dL (7-18); CALCIUM 8.7 mg/dL (8.5-10.1); POTASSIUM 4.2 mmol/L (3.5-5.1); TOT PROT 7.8 g/dl (6.4-8.2)
[2019-04-20] MEDS: THIAMINE HCL 100 MG TABLET (FP) PO SCH (21:14)
[2019-04-20] MEDS ORDERED: MELATONIN 5 MG TABLETS PO PRN (22:00)
[2019-04-21] MEDS ORDERED: PRENATAL VITAMINS W/ FOLIC ACID TABLET (FP) PO SCH (10:00)
[2019-04-21 15:02] LABS: EPI CELLS 0.1 /HPF (0-5/HPF); HYALINE CASTS 62 /lpf (0-8); PH,URINE 7.5 (5.0-8.0); URINE APPEARANCE CLEAR; URINE BACTERIA 5.4 /hpf (NEGATIVE); URINE BILIRUBIN NEGATIVE (NEGATIVE); URINE COLOR YELLOW; URINE GLUCOSE (UA) NEGATIVE (NEGATIVE); URINE KETONE NEGATIVE (NEGATIVE); URINE LEUK ESTERASE 2+ (NEGATIVE); URINE NITRITE NEGATIVE (NEGATIVE); URINE PROTEIN NEGATIVE (NEGATIVE); URINE RBC 2 /hpf (0-4); URINE WBC 107 /hpf (0-5)
[2019-04-21] MEDS: THIAMINE HCL 100 MG TABLET (FP) PO SCH (21:51)
[2019-04-22 06:59] VITALS: BP 117/92; PULSE 73; TEMP 98.4
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
== END 2019-04-22 08:22 | disposition left against medical advice (07) | DRG 894 ==
LOC: YASAS 08:26 → Y3W 10:34
PROVIDERS: ADMIT Neuromusculoskeletal Medicine & OMM; ATTEND Neuromusculoskeletal Medicine & OMM
PROC: HZ42ZZZ Group Counseling for Substance Abuse Treatment, Cognitive-Behavioral (ICD-10-PCS; principal; 2019-04-20)
DX: F10.20 Alcohol dependence, uncomplicated (principal); F16.20 Hallucinogen dependence, uncomplicated; F20.1 Disorganized schizophrenia; F19.282 Other psychoactive substance dependence with psychoactive substance-induced sleep disorder; F12.20 Cannabis dependence, uncomplicated; F17.210 Nicotine dependence, cigarettes, uncomplicated; Z94.5 Skin transplant status; Z59.0 Homelessness
CPT/HCPCS: 36415; 80053; 81003; 85027; 86593

== ENCOUNTER 2019-06-03 15:15 | Inpatient (IN) | payer OTHER ==
[2019-06-03 19:19] VITALS: BMI 33.7
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
[2019-06-03] MEDS ORDERED: MENTHOL/PHENOL 1 EACH UD MM PRN (20:42)
[2019-06-03] MEDS ORDERED: P-EPHED 60MG/TRIPROLIDI 2.5MG TABLET PO PRN (20:42)
[2019-06-03] MEDS ORDERED: guaiFENesin 200 MG/10 ML 10 ML UNIT-DOSE CUPS PO PRN (20:42)
[2019-06-03] MEDS ORDERED: LOPERAMIDE HCL 2 MG CAPSULE PO PRN (20:42)
[2019-06-03] MEDS ORDERED: MAGNESIUM CITRATE 300 ML BOTTLE PO PRN (20:42)
[2019-06-03] MEDS ORDERED: NICOTINE POLACRILEX 2 MG GUM BC PRN (20:42)
[2019-06-03] MEDS ORDERED: MAG HYDROX/AL HYDROX/SIMETH 30 ML UNIT-DOSE CUP PO PRN (20:42)
[2019-06-03] MEDS ORDERED: MAGNESIUM HYDROX 2400MG/30ML ORAL SUSPENSION 30 ML CUP PO PRN (20:42)
[2019-06-03] MEDS ORDERED: IBUPROFEN 400 MG TABLET (FP) PO PRN (20:42)
[2019-06-03] MEDS ORDERED: TUBERCULIN PPD 5 TU/0.1ML VIAL ID ONE (21:47)
[2019-06-03] MEDS ORDERED: MELATONIN 5 MG TABLETS PO PRN (22:00)
[2019-06-03] MEDS: THIAMINE HCL 100 MG TABLET (FP) PO SCH (22:48)
[2019-06-04] MEDS: ACETAMINOPHEN 325 MG TABLET (FP) PO PRN ×2 (06:17→21:16)
[2019-06-04] MEDS: PRENATAL VITAMINS W/ FOLIC ACID TABLET (FP) PO SCH (09:54)
[2019-06-04] MEDS: NICOTINE 21 MG/24 HOURS TOPICAL PATCH TD SCH (09:54)
[2019-06-04 10:28] LABS: EPI CELLS 0.7 /HPF (0-5/HPF); HYALINE CASTS 4 /lpf (0-8); URINE APPEARANCE CLEAR; URINE BACTERIA 2.4 /hpf (NEGATIVE); URINE BILIRUBIN NEGATIVE (NEGATIVE); URINE COLOR YELLOW; URINE GLUCOSE (UA) NEGATIVE (NEGATIVE); URINE KETONE NEGATIVE (NEGATIVE); URINE LEUK ESTERASE 1+ (NEGATIVE); URINE NITRITE NEGATIVE (NEGATIVE); URINE PROTEIN NEGATIVE (NEGATIVE); URINE RBC 1 /hpf (0-4); URINE UROBILINOGEN 0.2 mg/dL (0.2-1.0); URINE WBC 28 /hpf (0-5)
[2019-06-04] MEDS ORDERED: FLU VACCINE QUAD 60 MCG/0.5 ML (MDV 19-20) IM ONE (12:00)
[2019-06-04] MEDS ORDERED: PNEUMOC 13-VAL CONJ-DIP CRM/PF 0.5 ML DISP.SYRIN IM ONE (12:08)
[2019-06-04 12:57] LABS: HEMATOCRIT 36.6 % (35.4-49); HEMOGLOBIN 12.1 GM/dL (11.7-16.9); MCH 30.6 pg (25.7-33.7); MCHC 32.9 g/dl (32.0-35.9); MEAN PLT VOLUME 9.5 fl (7.5-11.1); PLATELET COUNT 235 K/MM3 (134-434); RBC 3.94 M/mm3 (4.00-5.60); RDW 15.2 % (11.9-15.9); WHITE BLOOD COUNT 6.9 K/mm3 (4.0-10.0)
[2019-06-04 13:12] LABS: ALBUMIN 3.2 g/dl (3.4-5.0); BILIRUBIN,TOTAL 0.2 mg/dL (0.2-1); BLOOD UREA NITROGEN 17.2 mg/dL (7-18); CALCIUM 8.4 mg/dL (8.5-10.1); TOT PROT 6.3 g/dl (6.4-8.2)
[2019-06-04] MEDS: THIAMINE HCL 100 MG TABLET (FP) PO SCH (21:15)
--- NOTE | 2019-06-04 22:18 | EKG ---
Test Reason : Blood Pressure : / mmHG Vent. Rate : 070 BPM Atrial Rate : 070 BPM P-R Int : 162 ms QRS Dur : 096 ms QT Int : 392 ms P-R-T Axes : 074 054 039 degrees QTc Int : 423 ms NORMAL SINUS RHYTHM NORMAL ECG WHEN COMPARED WITH ECG OF 17-JAN-2019 14:47, NO SIGNIFICANT CHANGE WAS FOUND Confirmed by MD ALFRED, FLOR ([id number]) on 06/04/2019 10:18:30 PM Referred By: Rodrick Marquez Confirmed By:FLOR SIMON MD
[2019-06-05] MEDS: PRENATAL VITAMINS W/ FOLIC ACID TABLET (FP) PO SCH (09:38)
[2019-06-05] MEDS: NICOTINE 21 MG/24 HOURS TOPICAL PATCH TD SCH (09:39)
[2019-06-05] MEDS: THIAMINE HCL 100 MG TABLET (FP) PO SCH (21:52)
[2019-06-06 07:02] VITALS: BP 126/90; PULSE 71; TEMP 98
[2019-06-06] MEDS: PRENATAL VITAMINS W/ FOLIC ACID TABLET (FP) PO SCH (09:33)
[2019-06-06] MEDS: NICOTINE 21 MG/24 HOURS TOPICAL PATCH TD SCH (09:34)
== END 2019-06-06 16:00 | disposition home or self-care (01) | DRG 895 ==
LOC: YASAS 15:15 → Y5N 20:45
PROVIDERS: ADMIT Neuromusculoskeletal Medicine & OMM; ATTEND Neuromusculoskeletal Medicine & OMM
PROC: HZ42ZZZ Group Counseling for Substance Abuse Treatment, Cognitive-Behavioral (ICD-10-PCS; principal; 2019-06-03)
DX: F10.20 Alcohol dependence, uncomplicated (principal); F16.20 Hallucinogen dependence, uncomplicated; F12.20 Cannabis dependence, uncomplicated; F17.210 Nicotine dependence, cigarettes, uncomplicated; F20.9 Schizophrenia, unspecified; F32.9 Major depressive disorder, single episode, unspecified; Z91.19 Patient's noncompliance with other medical treatment and regimen
CPT/HCPCS: 36415; 80053; 81003; 85027; 86593; 86803; 87389; 93005; 93010; Q2036

== ENCOUNTER 2019-08-10 19:52 | Inpatient (IN) | payer SELFPAY ==
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
--- NOTE | 2019-08-10 20:01 | PDOC ---
Attending Attestation - Resident Resident Name: Miquel Warner - ED Attending Attestation I have performed the following: I have examined & evaluated the patient, The case was reviewed & discussed with the resident, I agree w/resident's findings & plan - HPI HPI: 08/10/19 20:47 see resident hpi - Physicial Exam PE: 08/10/19 20:47 agree with resident exam - Medical Decision Making 08/10/19 20:47 Current condition 49-year-old male with complaints of chest pain and dyspnea on exertion Patient is a smoker and noncompliant with healthcare, he offers history of schizophrenia which is currently not medicated He was found outside with all of his belongings including luggage and brought in by EMS EKG is largely unchanged from previous, due to patient's smoking history, family history of coronary artery disease and noncompliance he will be held for observation
[2019-08-10 20:47] LABS: BASO % 0.8 % (0-2.0); EOS % 2.3 % (0-4.5); HEMATOCRIT 37.8 % (35.4-49); HEMOGLOBIN 12.4 GM/dL (11.7-16.9); LYMPH % 24.4 % (8-40); MCH 30.4 pg (25.7-33.7); MCHC 32.7 g/dl (32.0-35.9); MEAN CELL VOLUME 93.2 fl (80-96); MEAN PLT VOLUME 8.6 fl (7.5-11.1); MONO % 8.2 % (3.8-10.2); NEUT % 64.3 % (42.8-82.8); PLATELET COUNT 285 K/MM3 (134-434); RBC 4.06 M/mm3 (4.00-5.60); RDW 14.4 % (11.9-15.9)
[2019-08-10 21:09] LABS: ALBUMIN 3.4 g/dl (3.4-5.0); BILIRUBIN,TOTAL 0.2 mg/dL (0.2-1); BLOOD UREA NITROGEN 24.2 mg/dL (7-18); CALCIUM 8.6 mg/dL (8.5-10.1); POTASSIUM 3.9 mmol/L (3.5-5.1)
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
--- NOTE | 2019-08-10 22:56 | HP ---
CHIEF COMPLAINT: Chest pain PCP: none HISTORY OF PRESENT ILLNESS: Patient is a 49 year old male PMH of schizophrenia who presents with intermittent chest pain for several weeks. Chest pain is L-sided, pleuritic, occasionally radiates to the back, worse on exertion, alleviated with rest. He also complains of intermittent SOB. Denies history of known cardiovascular disease or CT. Has not taken any medications for these symptoms. No fevers, chills, nausea, vomiting, abd pain, diarrhea. He does endorse constipation over the past few weeks. Last bowel movement was over a day ago. Denies recent alcohol or drug use. No sick contacts or recent travel. Pt is homeless. Recent Travel: denies PAST MEDICAL HISTORY: Schizophrenia (reports he takes risperidol but has not taken it in several months because he "ran out") PAST SURGICAL HISTORY: Social History: Smokin pack year hx Alcohol: occasional "only when offered at a republic[employer]" (states last drink was a year ago) Drugs: denies Allergies No Known Allergies Allergy (Verified 08/10/19 20:04) HOME MEDICATIONS: Home Medications Medication Instructions Recorded NK [No Known Home Medication] 08/10/19 REVIEW OF SYSTEMS CONSTITUTIONAL: Absent: fever, chills, diaphoresis, generalized weakness, malaise, loss of appetite, weight change HEENT: Absent: rhinorrhea, nasal congestion, throat pain, throat swelling, difficulty swallowing, mouth swelling, ear pain, eye pain, visual changes CARDIOVASCULAR: chest pain Absent: syncope, palpitations, irregular heart rate, lightheadedness, peripheral edema RESPIRATORY: shortness of breath Absent: cough, dyspnea with exertion, orthopnea, wheezing, stridor, hemoptysis GASTROINTESTINAL: Absent: abdominal pain, abdominal distension, nausea, vomiting, diarrhea, constipation, melena, hematochezia GENITOURINARY: Absent: dysuria, frequency, urgency, hesitancy, hematuria, flank pain, genital pain MUSCULOSKELETAL: Absent: myalgia, arthralgia, joint swelling, back pain, neck pain SKIN: Absent: rash, itching, pallor HEMATOLOGIC/IMMUNOLOGIC: Absent: easy bleeding, easy bruising, lymphadenopathy, frequent infections ENDOCRINE: Absent: unexplained weight gain, unexplained weight loss, heat intolerance, cold intolerance NEUROLOGIC: Absent: headache, focal weakness or paresthesias, dizziness, unsteady gait, seizure, mental status changes, bladder or bowel incontinence PSYCHIATRIC: Absent: anxiety, depression, suicidal or homicidal ideation, hallucinations. PHYSICAL EXAMINATION Vital Signs - 24 hr 08/10/19 08/10/19 19:56 21:30 Temperature 97.7 F Pulse Rate 88 Respiratory 16 Rate Blood Pressure 145/97 O2 Sat by Pulse 98 98 Oximetry (%) GENERAL: Sleepy, not cooperating during exam because "he wants to sleep", but arousable and fully oriented, in no acute distress. HEAD: Normal with no signs of trauma. EYES: Pupils equal, round and reactive to light, L strabismus (L eye deviates outward), but extraocular movements intact, sclera anicteric, mild conjunctivitis. No lid lag. EARS, NOSE, THROAT: Ears normal, nares patent, oropharynx clear without exudates. Moist mucous membranes. NECK: Normal range of motion, supple without lymphadenopathy, JVD, or masses. LUNGS: Breath sounds equal, clear to auscultation bilaterally. No wheezes, and no crackles. No accessory muscle use. HEART: Regular rate and rhythm, normal S1 and S2 without murmur, rub or gallop. ABDOMEN: Soft, distended, tenderness throughout, normoactive bowel sounds, no guarding, no rebound, no masses. No hepatomegaly or splenomegaly. MUSCULOSKELETAL: Normal range of motion at all joints. No bony deformities or tenderness. No CVA tenderness. UPPER EXTREMITIES: 2+ pulses, warm, well-perfused. No cyanosis. No clubbing. No peripheral edema. LOWER EXTREMITIES: 2+ pulses, warm, well-perfused. No calf tenderness. 2+ peripheral edema. NEUROLOGICAL: Cranial nerves II-XII intact. Normal speech. Normal gait. PSYCHIATRIC: Cooperative. Good eye contact. Appropriate mood and affect. SKIN: Warm, dry, normal turgor, no rashes or lesions noted, normal capillary refill. Laboratory Results - last 24 hr 08/10/19 08/10/19 08/10/19 20:35 20:35 20:35 WBC 6.0 RBC 4.06 Hgb 12.4 Hct 37.8 MCV 93.2 MCH 30.4 MCHC 32.7 RDW 14.4 Plt Count 285 MPV 8.6 Absolute Neuts (auto) 3.9 Neutrophils % 64.3 Lymphocytes % 24.4 Monocytes % 8.2 Eosinophils % 2.3 Basophils % 0.8 Nucleated RBC % 0 Sodium 144 Potassium 3.9 Chloride 111 H Carbon Dioxide 27 Anion Gap 6 L BUN 24.2 H Creatinine 1.0 Est GFR (CKD-EPI)AfAm 103.42 Est GFR (CKD-EPI)NonAf 89.23 Random Glucose 105 Calcium 8.6 Total Bilirubin 0.2 AST 38 H ALT 47 Alkaline Phosphatase 109 Troponin I < 0.02 Total Protein 7.0 Albumin 3.4 ASSESSMENT/PLAN: Patient is a 49 year old male PMH of schizophrenia who presents with chest pain on exertion for several weeks. #Stable angina, r/o ACS EKG: NSR; T wave flattening in V1. Trop neg x2, CK: 609, CK-MB: 5 Admit to telemetry to rule out ACS. Cardiology consulted (Dr. Urena) Chest CT to screen for lung CA Echo in am. Consider stress test pending echo results Fasting lipid profile Urine toxicology and blood alcohol level #Schizophrenia Pt takes risperidol but has been non-compliant for several months. Will refer to psych on d/c #FEN Regular diet IV NS @ 100ml/hr #DVT ppx Heparin sq #Dispo Obs tele Visit type - Emergency Visit Emergency Visit: Yes ED Registration Date: 08/10/19 Care time: The patient presented to the Emergency Department on the above date and was hospitalized for further evaluation of their emergent condition. - New Patient This patient is new to me today: Yes Date on this admission: 08/11/19 - Critical Care Critical Care patient: No ATTENDING PHYSICIAN STATEMENT I saw and evaluated the patient. I reviewed the resident's note and discussed the case with the resident. I agree with the resident's findings and plan as documented. SUBJECTIVE: OBJECTIVE: ASSESSMENT AND PLAN:
[2019-08-11 04:02] LABS: COCAINE, UR NEGATIVE ng/ml (CUTOFF=300); METHADONE, UR NEGATIVE ng/ml (CUTOFF=300); OPIATES, URI NEGATIVE ng/ml (CUTOFF=300); URINE AMPHETAMINES NEGATIVE ng/ml (CUTOFF=500); URINE BARBITURATES NEGATIVE ng/ml (CUTOFF=200); URINE BENZODIAZEPINES NEGATIVE ng/ml (CUTOFF=200)
[2019-08-11 04:05] LABS: PHENCYCLIDINE,URINE POSITIVE ng/ml (CUTOFF=25)
[2019-08-11 04:30] VITALS: BMI 31.8
[2019-08-11] MEDS: HEPARIN NA (PORCINE) 5,000 UNITS/ML 1ML VIAL SQ SCH ×3 (05:41→21:51)
[2019-08-11 07:00] LABS: BASO % 0.7 % (0-2.0); EOS % 2.1 % (0-4.5); HEMATOCRIT 35.5 % (35.4-49); HEMOGLOBIN 11.7 GM/dL (11.7-16.9); LYMPH % 24.2 % (8-40); MCH 30.8 pg (25.7-33.7); MCHC 32.8 g/dl (32.0-35.9); MEAN CELL VOLUME 93.8 fl (80-96); MEAN PLT VOLUME 8.5 fl (7.5-11.1); MONO % 10.2 % (3.8-10.2); NEUT % 62.8 % (42.8-82.8); PLATELET COUNT 287 K/MM3 (134-434); RBC 3.79 M/mm3 (4.00-5.60); RDW 14.5 % (11.9-15.9)
[2019-08-11 07:38] LABS: CHOLESTEROL 136 mg/dL (50-200); HDL CHOLESTEROL 60 mg/dL (40-60); LDL CHOLESTEROL (ONLY SJRH) 66 mg/dL (5-100); TRIGLYCERIDES 52 mg/dL (0-150)
[2019-08-11 07:40] LABS: ALBUMIN 3.1 g/dl (3.4-5.0); BILIRUBIN,TOTAL 0.5 mg/dL (0.2-1); CALCIUM 8.6 mg/dL (8.5-10.1); CREATININE 0.9 mg/dL (0.55-1.3); POTASSIUM 3.9 mmol/L (3.5-5.1); TOT PROT 6.2 g/dl (6.4-8.2)
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
[2019-08-11] MEDS ORDERED: guaiFENesin/CODEINE 5 ML UNIT-DOSE CUPS PO PRN (10:15)
[2019-08-11] MEDS: BACITRACIN 15 GM TUBE TOPICAL OINTMENT TP SCH (10:44)
[2019-08-11] MEDS: CLINDAMYCIN 300 MG PREMIX IVPB 300 MG/50 ML BAG IVPB SCH ×2 (11:27→17:39)
[2019-08-11] MEDS: NICOTINE 21 MG/24 HOURS TOPICAL PATCH TD SCH (15:49)
[2019-08-12] MEDS ORDERED: PT OWN MED DRAWER 7, Y5N ONE ×2 (01:14→09:21)
[2019-08-12] MEDS: CLINDAMYCIN 300 MG PREMIX IVPB 300 MG/50 ML BAG IVPB SCH ×2 (02:47→09:28)
--- NOTE | 2019-08-12 05:12 | EKG ---
Test Reason : Blood Pressure : / mmHG Vent. Rate : 086 BPM Atrial Rate : 086 BPM P-R Int : 140 ms QRS Dur : 084 ms QT Int : 376 ms P-R-T Axes : 048 036 030 degrees QTc Int : 449 ms POOR DATA QUALITY, INTERPRETATION MAY BE ADVERSELY AFFECTED NORMAL SINUS RHYTHM CANNOT RULE OUT ANTERIOR INFARCT , AGE UNDETERMINED ABNORMAL ECG WHEN COMPARED WITH ECG OF 01-AUG-2019 04:45, NO SIGNIFICANT CHANGE WAS FOUND Confirmed by EUSEBIO JACKMAN MD ([id number]) on 08/12/2019 5:12:46 AM Referred By: Confirmed By:EUSEBIO JACKMAN MD
[2019-08-12] MEDS: HEPARIN NA (PORCINE) 5,000 UNITS/ML 1ML VIAL SQ SCH ×2 (05:47→14:15)
[2019-08-12] MEDS: NICOTINE 21 MG/24 HOURS TOPICAL PATCH TD SCH (09:28)
[2019-08-12] MEDS: BACITRACIN 15 GM TUBE TOPICAL OINTMENT TP SCH (09:28)
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
--- NOTE | 2019-08-12 10:29 | EKG ---
Test Reason : Blood Pressure : / mmHG Vent. Rate : 086 BPM Atrial Rate : 086 BPM P-R Int : 164 ms QRS Dur : 086 ms QT Int : 384 ms P-R-T Axes : 098 073 085 degrees QTc Int : 459 ms POOR DATA QUALITY, INTERPRETATION MAY BE ADVERSELY AFFECTED NORMAL SINUS RHYTHM WITH SINUS ARRHYTHMIA NORMAL ECG WHEN COMPARED WITH ECG OF 10-AUG-2019 20:06, NO SIGNIFICANT CHANGE WAS FOUND Confirmed by DUANE AYOUB, DILAN ([id number]) on 08/12/2019 10:29:24 AM Referred By: Confirmed By:DILAN ZEPEDA MD
--- NOTE | 2019-08-12 12:08 | ECHO ---
Name: RAFFY DOWNING Exam:Adult Echocardiogram Study Date: 08/12/2019 10:11 AM Age: 49 yrs Reason For Study: r/o acs Height: 69 in Weight: 210 lb BSA: 2.1 m2 MMode/2D Measurements & Calculations RVDd: 2.7 cm Ao root diam: 3.6 cm IVSd: 1.1 cm LA dimension: 4.0 cm LVIDd: 4.9 cm ACS: 2.4 cm LVIDs: 3.3 cm LVPWd: 1.1 cm IVSs: 1.1 cm LVPWs: 1.5 cm EDV(Teich): 111.6 ml ESV(Teich): 42.9 ml Doppler Measurements & Calculations MV E max lala: 71.8 cm/sec Ao V2 max: 145.5 cm/sec MV A max lala: 55.3 cm/sec Ao max P.5 mmHg MV E/A: 1.3 Ao V2 mean: 99.5 cm/sec Ao mean P.4 mmHg Ao V2 VTI: 26.3 cm MR max lala: 419.1 cm/sec TR max lala: 241.5 cm/sec MR max P.3 mmHg TR max P.3 mmHg Med Peak E' Lala: 7.2 cm/sec Med E/e': 10.0 Lat Peak E' Lala: 11.6 cm/sec Lat E/e': 6.2 Procedure A complete two-dimensional transthoracic echocardiogram was performed (2D, M-mode, Doppler and color flow Doppler). Left Ventricle The left ventricular size, thickness and function are normal. The left ventricular ejection fraction is normal. Ejection Fraction = 60-65%. No regional wall motion abnormalities noted. Right Ventricle The right ventricle is normal in size and function. Atria Normal left and right atrial size and function. Mitral Valve There is trace mitral regurgitation. Tricuspid Valve There is trace tricuspid regurgitation. Aortic Valve The aortic valve is trileaflet. No hemodynamically significant valvular aortic stenosis. No aortic regurgitation is present. Pulmonic Valve There is no pulmonic valvular regurgitation. Great Vessels The aortic root is normal size. Pericardium/Pleura There is no pericardial effusion. Interpretation Summary The left ventricular size, thickness and function are normal The right ventricle is normal in size and function. There is trace mitral regurgitation. There is trace tricuspid regurgitation. MD Salvador Cullen 08/12/2019 12:08 PM
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
[2019-08-12 14:35] VITALS: BP 150/112; PULSE 74; TEMP 98.4
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
== END 2019-08-12 15:48 | disposition home or self-care (01) | DRG 203 ==
LOC: JER 19:52 → JERBED 21:21 → J4S 23:25 → MERGE 23:37 → OBSVTOIN 23:37
PROVIDERS: ADMIT Internal Medicine; ATTEND Internal Medicine
DX: R07.89 Other chest pain (principal); L03.115 Cellulitis of right lower limb; B34.9 Viral infection, unspecified; F20.9 Schizophrenia, unspecified; F17.210 Nicotine dependence, cigarettes, uncomplicated; J98.11 Atelectasis; F16.10 Hallucinogen abuse, uncomplicated; F10.10 Alcohol abuse, uncomplicated; E66.9 Obesity, unspecified; Z68.31 Body mass index [BMI] 31.0-31.9, adult; S81.811A Laceration without foreign body, right lower leg, initial encounter; W26.0XXA Contact with knife, initial encounter; Y92.89 Other specified places as the place of occurrence of the external cause; Z91.19 Patient's noncompliance with other medical treatment and regimen; B95.7 Other staphylococcus as the cause of diseases classified elsewhere; B95.2 Enterococcus as the cause of diseases classified elsewhere; B96.4 Proteus (mirabilis) (morganii) as the cause of diseases classified elsewhere
CPT/HCPCS: 36415; 70450-TC; 71045-TC-FY; 71250-TC; 80053; 80061; 80307; 82550; 82553; 83721; 84484; 85025; 87070; 87077; 87186; 87205; 87804; 87880; 93005; 93010; 93306-TC; 99285-25; G0378; J1644

== ENCOUNTER 2019-08-15 22:48 | Emergency (ER) | payer OTHER ==
[2019-08-15 22:58] VITALS: BP 138/75; PULSE 79; TEMP 98.3; BMI 33.2
--- NOTE | 2019-08-15 23:16 | PDOC ---
History of Present Illness - General History Source: Patient Exam Limitations: No Limitations, Clinical Condition - History of Present Illness Initial Comments: 08/15/19 23:11 Source: Patient, poor historian HPI: 49yo undomiciled M w/ history of schizophrenia (medication non-complaint), recently admitted for r/o ACS (d/c 08/12) found to have LE cellulitis and ?URI who presents for evaluation of Chest pain. Pt endorses "really bad" chest pain "for awhile" that is constant, moves around, is on the font and back of his chest. Reports the pain is unchanged from pain he experienced at time of discharge. Endorses cough productive of yellow sputum. Denies fevers/chills, coughing, abdominal pain, N/V/C, dysuria, hematuria, rash. Talks at length about his sister dying of an [place] at 17yo in 1972 and his mother dying last year. Appears disorganized with changing facts in his story as he tells them. Meds: Trazadone, Risperidol (not taken in several months) PSH: S/p skin graft to left abdomen/L thigh Allergies: Denies SH: 1ppd; Denies EtOH and illicit drug use <Joselito Nicholson - Last Filed: 08/16/19 02:04> <James Saleh - Last Filed: 08/16/19 03:42> - General Stated Complaint: CHEST PAIN Past History - Travel Traveled outside of the country in the last 30 days: No Close contact w/someone who was outside of country & ill: No - Past Medical History Anemia: No Asthma: No Cancer: No Cardiac Disorders: No CVA: No COPD: No CHF: No Dementia: No Diabetes: No GI Disorders: No Disorders: No HTN: No Hypercholesterolemia: No Kidney Stones: No Liver Disease: No Psychiatric Problems: Yes (schizophrenia not compliant) Seizures: No Thyroid Disease: No - Surgical History Abdominal Surgery: No Appendectomy: No Cardiac Surgery: No Cholecystectomy: No Lung Surgery: No Neurologic Surgery: No Orthopedic Surgery: No - Reproductive History Testicular Surgery: No - Immunization History Immunization Up to Date: Yes - Psycho Social/Smoking Cessation Hx Smoking Status: No Smoking History: Unknown if ever smoked Have you smoked in the past 12 months: Yes Number of Cigarettes Smoked Daily: 6 Cigars Per Day: 1 'Breaking Loose' booklet given: 08/11/19 Hx Alcohol Use: No Drug/Substance Use Hx: No Substance Use Type: None, Alcohol, Marijuana Hx Substance Use Treatment: No <Joselito Nicholson - Last Filed: 08/16/19 02:04> <James Saleh - Last Filed: 08/16/19 03:42> - Past Medical History Allergies/Adverse Reactions: Allergies Allergy/AdvReac Type Severity Reaction Status Date / Time No Known Allergies Allergy Verified 08/15/19 22:58 Home Medications: Ambulatory Orders NK [No Known Home Medication] 08/15/19 Review of Systems - Review of Systems Able to Perform ROS?: Yes Is the patient limited Urdu proficient: Yes Constitutional: No: Chills, Diaphoresis, Fever, Weakness HEENTM: No: Recent change in vision, Nose Congestion, Throat Pain Respiratory: Yes: Cough, Productive cough (yellow sputum). No: Shortness of Breath, Wheezing Cardiac (ROS): Yes: See HPI, Chest Pain. No: Edema, Irregular Heart Rate, Lightheadedness, Palpitations, Syncope, Chest Tightness ABD/GI: No: Constipated, Diarrhea, Nausea, Vomiting : No: Burning, Dysuria, Discharge, Frequency Musculoskeletal: No: Back Pain, Muscle Pain Integumentary: Yes: See HPI (cellulitis on b/l legs) Neurological: No: Headache, Numbness, Tingling, Weakness Psychiatric: Yes: Other (schizophrenia ) Hematologic/Lymphatic: No: Anemia, Easy Bleeding, Easy Bruising All Other Systems: Reviewed and Negative <Joselito iNcholson - Last Filed: 08/16/19 02:04> *Physical Exam - Vital Signs Last Vital Signs Temp Pulse Resp BP Pulse Ox 98.3 F 79 18 138/75 99 08/15/19 22:57 08/15/19 22:57 08/15/19 22:57 08/15/19 22:57 08/15/19 22:57 - Physical Exam 08/15/19 23:16 AFVSS Malodorous man holding a pink ukelele Conjunctiva injected, MMM, NCAT, amblyopia RRR, nl s1s2, no murmur appreciated CTABL, normal work of breathing, no wheezes / rales / rhonchi appreciated, no coughs during encounter Soft, non-tender, non-distended WWP, no clubbing / cyanosis / edema MAEE, normal strength and sensation Disorganized, tangential <Joselito Nicholson - Last Filed: 08/16/19 02:04> - Vital Signs Last Vital Signs Temp Pulse Resp BP Pulse Ox 98.3 F 79 18 138/75 99 08/15/19 22:57 08/15/19 22:57 08/15/19 22:57 08/15/19 22:57 08/16/19 00:40 <James Saleh - Last Filed: 08/16/19 03:42> ED Treatment Course - LABORATORY CBC & Chemistry Diagram: 08/15/19 23:52 08/15/19 23:52 <Joselito Nicholson - Last Filed: 08/16/19 02:04> - LABORATORY CBC & Chemistry Diagram: 08/15/19 23:52 08/15/19 23:52 - ADDITIONAL ORDERS Additional order review: Laboratory Results 08/16/19 08/15/19 08/15/19 03:06 23:52 23:52 Sodium 141 Potassium 3.9 Chloride 109 H Carbon Dioxide 26 Anion Gap 6 L BUN 25.8 H Creatinine 1.1 Est GFR (CKD-EPI)AfAm 92.16 Est GFR (CKD-EPI)NonAf 79.52 Random Glucose 109 H Calcium 8.7 Total Bilirubin 0.6 AST 34 ALT 40 Alkaline Phosphatase 101 Creatine Kinase 586 H Creatine Kinase Index 1.1 CK-MB (CK-2) 6.6 H Troponin I < 0.02 < 0.02 Total Protein 7.1 Albumin 3.5 08/15/19 23:52 RBC 4.04 MCV 93.4 MCHC 32.9 RDW 14.8 MPV 8.7 Neutrophils % 68.1 Lymphocytes % 20.4 Monocytes % 8.9 Eosinophils % 2.2 Basophils % 0.4 <James Saleh - Last Filed: 08/16/19 03:42> Medical Decision Making - Medical Decision Making 08/15/19 23:20 49yo undomiciled M w/ history of schizophrenia (medication non-compliant), recently admitted for r/o ACS (d/c 08/12) found to have LE cellulitis and ?URI who presents for evaluation of Chest pain. History notable for recent admission and workup for atypical chest pain, patient reporting unchanged pain from before , concerning for reported cough with sputum. Exam unremarkable. Plan for basic labs, imaging to r/o evolving PNA or ACS, likely discharge. DDX includes malingering in a patient who asks that we take our time working him up and please consider admitting him. - Troponin, CBC, CMP - EKG, CXR 08/16/19 01:06 - CBC within normal limits - CMP with mildly elevated chloride, normal LFTs - Negative Troponin, 3 hour repeat at 3AM - CXR (my read): no infiltrate / effusion, no pneumothorax, normal contours, no bony pathology noted - EKBPM, NSR, normal axis, QTc 453, QRS 90, no acute ischemic changes, unchanged from 08/11/19 EKG Dispo: Discharge pending second troponin 08/16/19 02:04 - Second troponin ordered - Pt endorsed to alison Navarro team <Joselito Nicholson - Last Filed: 08/16/19 02:04> Discharge - Discharge Information Problems reviewed: Yes - Admission No <Joselito Nicholson - Last Filed: 08/16/19 02:04> - Discharge Information Problems reviewed: Yes - Admission No <James Saleh - Last Filed: 08/16/19 03:42> - Discharge Information Clinical Impression/Diagnosis: Chest pain, atypical Condition: Stable Disposition: HOME - Follow up/Referral Ref[place]: [facility] [place] [facility] [place]Provider Group] - Patient Discharge Instructions Patient Printed Discharge Instructions: DI for Atypical Chest Pain Additional Instructions: You were seen and evaluated in the ER for chest pain. Please continue to take your home medications as prescribed. Follow up with the provided primary care clinic in the next week for continued care. Return to the ED for any new or concerning symptoms including but not limited to : worsening chest pain, associated shortness of breath, fevers/chills, weakness , or inability to tolerate food / water by mouth.
[2019-08-16 00:21] LABS: BASO % 0.4 % (0-2.0); EOS % 2.2 % (0-4.5); HEMATOCRIT 37.8 % (35.4-49); HEMOGLOBIN 12.4 GM/dL (11.7-16.9); LYMPH % 20.4 % (8-40); MCH 30.7 pg (25.7-33.7); MCHC 32.9 g/dl (32.0-35.9); MEAN CELL VOLUME 93.4 fl (80-96); MEAN PLT VOLUME 8.7 fl (7.5-11.1); MONO % 8.9 % (3.8-10.2); NEUT % 68.1 % (42.8-82.8); PLATELET COUNT 267 K/MM3 (134-434); RBC 4.04 M/mm3 (4.00-5.60); RDW 14.8 % (11.9-15.9); WHITE BLOOD COUNT 6.9 K/mm3 (4.0-10.0)
[2019-08-16 00:41] LABS: ALBUMIN 3.5 g/dl (3.4-5.0); BILIRUBIN,TOTAL 0.6 mg/dL (0.2-1); BLOOD UREA NITROGEN 25.8 mg/dL (7-18); CALCIUM 8.7 mg/dL (8.5-10.1); CREATININE 1.1 mg/dL (0.55-1.3); POTASSIUM 3.9 mmol/L (3.5-5.1); TOT PROT 7.1 g/dl (6.4-8.2)
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
--- NOTE | 2019-08-16 03:43 | PDOC ---
*Physical Exam - Vital Signs Last Vital Signs Temp Pulse Resp BP Pulse Ox 98.3 F 79 18 138/75 99 08/15/19 22:57 08/15/19 22:57 08/15/19 22:57 08/15/19 22:57 08/16/19 00:40 - Physical Exam General Appearance: Yes: Nourished, Appropriately Dressed HEENT: positive: EOMI, LEOBARDO, Normal ENT Inspection, Pharynx Normal Neck: positive: Trachea midline, Normal Thyroid, Supple Respiratory/Chest: positive: Chest Tender, Lungs Clear. negative: Crackles, Wheezing Cardiovascular: positive: Regular Rhythm, Regular Rate, S1, S2. negative: Murmur, Gallop/S3, Gallop/S4 Vascular Pulses: Dorsalis-Pedis (R): 2+, Doralis-Pedis (L): 2+ Gastrointestinal/Abdominal: positive: Normal Bowel Sounds, Soft Extremity: positive: Normal Capillary Refill, Normal Range of Motion ED Treatment Course - LABORATORY CBC & Chemistry Diagram: 08/15/19 23:52 08/15/19 23:52 - ADDITIONAL ORDERS Additional order review: Laboratory Results 08/16/19 08/15/19 08/15/19 03:06 23:52 23:52 Sodium 141 Potassium 3.9 Chloride 109 H Carbon Dioxide 26 Anion Gap 6 L BUN 25.8 H Creatinine 1.1 Est GFR (CKD-EPI)AfAm 92.16 Est GFR (CKD-EPI)NonAf 79.52 Random Glucose 109 H Calcium 8.7 Total Bilirubin 0.6 AST 34 ALT 40 Alkaline Phosphatase 101 Creatine Kinase 586 H Creatine Kinase Index 1.1 CK-MB (CK-2) 6.6 H Troponin I < 0.02 < 0.02 Total Protein 7.1 Albumin 3.5 08/15/19 23:52 RBC 4.04 MCV 93.4 MCHC 32.9 RDW 14.8 MPV 8.7 Neutrophils % 68.1 Lymphocytes % 20.4 Monocytes % 8.9 Eosinophils % 2.2 Basophils % 0.4 Medical Decision Making - Medical Decision Making 49yo undomiciled M w/ history of schizophrenia (medication non-compliant), recently admitted for r/o ACS (d/c 08/12) found to have LE cellulitis and URI who presents for evaluation of Chest pain. #Atypical chest pain Negative 2nd Troponin CXR (my read): no infiltrate / effusion, no pneumothorax, normal contours, no bony pathology noted EKBPM, NSR, normal axis, QTc 453, QRS 90, no acute ischemic changes, unchanged from 08/11/19 EKG 08/16/19 03:44 Discharge - Discharge Information Problems reviewed: Yes Clinical Impression/Diagnosis: Chest pain, atypical Condition: Stable Disposition: HOME - Admission No - Follow up/Referral Referrals: [facility] [place] [facility] [place]] - Patient Discharge Instructions Patient Printed Discharge Instructions: DI for Atypical Chest Pain Additional Instructions: You were seen and evaluated in the ER for chest pain. Please continue to take your home medications as prescribed. Follow up with the provided primary care clinic in the next week for continued care. Return to the ED for any new or concerning symptoms including but not limited to : worsening chest pain, associated shortness of breath, fevers/chills, weakness , or inability to tolerate food / water by mouth. - Post Discharge Activity
--- NOTE | 2019-08-16 11:27 | EKG ---
Test Reason : Blood Pressure : / mmHG Vent. Rate : 082 BPM Atrial Rate : 082 BPM P-R Int : 160 ms QRS Dur : 090 ms QT Int : 388 ms P-R-T Axes : 077 063 033 degrees QTc Int : 453 ms SINUS RHYTHM WITH OCCASIONAL PREMATURE VENTRICULAR COMPLEXES MINIMAL VOLTAGE CRITERIA FOR LVH, MAY BE NORMAL VARIANT NONSPECIFIC ST AND T WAVE ABNORMALITY ABNORMAL ECG WHEN COMPARED WITH ECG OF 03-JUN-2019 21:25, PREMATURE VENTRICULAR COMPLEXES ARE NOW PRESENT Confirmed by RACHEL HUITRON MD ([id number]) on 08/16/2019 11:27:06 AM Referred By: Confirmed By:RACHEL HUITRON MD
== END 2019-08-16 03:56 | disposition home or self-care (01) ==
LOC: JER 22:48
DX: R07.89 Other chest pain (principal); F20.9 Schizophrenia, unspecified; Z91.14 Patient's other noncompliance with medication regimen; Z87.2 Personal history of diseases of the skin and subcutaneous tissue
CPT/HCPCS: 36415; 71046-TC-FY; 80053; 82550; 82553; 84484; 85025; 93005; 93010; 99283-25

== ENCOUNTER 2019-08-16 08:05 | Emergency (ER) | payer OTHER ==
[2019-08-16 08:23] VITALS: BP 125/86; PULSE 78; TEMP 97.2; BMI 31.0
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
--- NOTE | 2019-08-16 11:00 | EKG ---
Test Reason : Blood Pressure : / mmHG Vent. Rate : 068 BPM Atrial Rate : 068 BPM P-R Int : 138 ms QRS Dur : 088 ms QT Int : 416 ms P-R-T Axes : 053 047 035 degrees QTc Int : 442 ms NORMAL SINUS RHYTHM NORMAL ECG WHEN COMPARED WITH ECG OF 16-AUG-2019 00:47, PREMATURE VENTRICULAR COMPLEXES ARE NO LONGER PRESENT Confirmed by RACHEL HUITRON MD ([id number]) on 08/16/2019 11:00:14 AM Referred By: Confirmed By:RACHEL HUITRON MD
== END 2019-08-16 14:43 | disposition home or self-care (01) ==
LOC: JER 08:05
DX: R07.9 Chest pain, unspecified (principal); F17.210 Nicotine dependence, cigarettes, uncomplicated; F20.9 Schizophrenia, unspecified
CPT/HCPCS: 36415; 82550; 82553; 84484; 93005; 93010; 99281-25

== ENCOUNTER 2019-08-17 01:01 | Emergency (ER) | payer OTHER ==
[2019-08-17 01:43] VITALS: BMI 31.7
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
[2019-08-17 03:16] VITALS: BP 131/77; PULSE 75; TEMP 97.7
== END 2019-08-17 03:16 | disposition home or self-care (01) ==
LOC: JER 01:01
DX: Z59.0 Homelessness (principal); Z76.5 Malingerer [conscious simulation]; F20.9 Schizophrenia, unspecified; Z87.891 Personal history of nicotine dependence
CPT/HCPCS: 99281-25

== ENCOUNTER 2019-08-17 22:11 | Emergency (ER) | payer OTHER ==
[2019-08-17 22:22] VITALS: TEMP 98.1; BMI 31.0
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
[2019-08-18 05:38] VITALS: BP 125/77; PULSE 82
--- NOTE | 2019-08-18 17:36 | EKG ---
Test Reason : Blood Pressure : / mmHG Vent. Rate : 073 BPM Atrial Rate : 073 BPM P-R Int : 160 ms QRS Dur : 086 ms QT Int : 384 ms P-R-T Axes : 070 039 040 degrees QTc Int : 423 ms NORMAL SINUS RHYTHM POSSIBLE LEFT ATRIAL ENLARGEMENT BORDERLINE ECG WHEN COMPARED WITH ECG OF 16-AUG-2019 08:44, NO SIGNIFICANT CHANGE WAS FOUND Confirmed by YUMIKO AYOUB, CAITY ([id number]) on 08/18/2019 5:36:19 PM Referred By: Confirmed By:CAITY CALDERON MD
== END 2019-08-18 05:38 | disposition home or self-care (01) ==
LOC: JER 22:11
DX: R07.9 Chest pain, unspecified (principal); Z59.0 Homelessness; Z87.891 Personal history of nicotine dependence; F20.9 Schizophrenia, unspecified
CPT/HCPCS: 93005; 93010; 99282-25

== ENCOUNTER 2019-09-01 04:45 | Emergency (ER) | payer BC, OTHER ==
[2019-09-01 04:53] VITALS: BP 121/78; PULSE 71; TEMP 96.9; BMI 24.4
--- NOTE | 2019-09-01 04:53 | PDOC ---
Attending Attestation - Resident Resident Name: Tristan He - ED Attending Attestation I have performed the following: I have examined & evaluated the patient, The case was reviewed & discussed with the resident, I agree w/resident's findings & plan - HPI HPI: 09/01/19 04:52 see resident hpi - Physicial Exam PE: 09/01/19 04:52 agree with resident exam - Medical Decision Making 09/01/19 04:52 49-year-old male seen multiple times in the emergency department complaining of cough congestion and intermittent chest pain which is reproducible and only in certain positions Positive tenderness on exam Of note patient has had multiple presentations for chest pain and has had 5- troponins as well as negative chest x-rays EKG today shows no significant acute abnormalities Will DC and again recommend primary care follow-up
--- NOTE | 2019-09-01 05:00 | PDOC ---
History of Present Illness - General Chief Complaint: Cold Symptoms Stated Complaint: COUGHING/CONGESTION Time Seen by Provider: 09/01/19 04:51 - History of Present Illness Initial Comments: 49 year male with PMH of psychiatric history and homelessness presenting with cough and congestion for the last day. Denies fevers, chills, nausea, vomiting, or diarrhea. 09/01/19 04:52 Past History - Past Medical History Allergies/Adverse Reactions: Allergies Allergy/AdvReac Type Severity Reaction Status Date / Time No Known Allergies Allergy Verified 09/01/19 04:54 Home Medications: Ambulatory Orders NK [No Known Home Medication] 08/15/19 Anemia: No Asthma: No Cancer: No Cardiac Disorders: No CVA: No COPD: No CHF: No Dementia: No Diabetes: No GI Disorders: No Disorders: No HTN: No Hypercholesterolemia: No Kidney Stones: No Liver Disease: No Psychiatric Problems: Yes (schizophrenia not compliant) Seizures: No Thyroid Disease: No - Surgical History Abdominal Surgery: No Appendectomy: No Cardiac Surgery: No Cholecystectomy: No Lung Surgery: No Neurologic Surgery: No Orthopedic Surgery: No - Reproductive History Testicular Surgery: No - Immunization History Immunization Up to Date: Yes - Psycho Social/Smoking Cessation Hx Smoking Status: No Smoking History: Former smoker Have you smoked in the past 12 months: No Number of Cigarettes Smoked Daily: 20 Cigars Per Day: 1 'Breaking Loose' booklet given: 08/11/19 Hx Alcohol Use: Yes Drug/Substance Use Hx: No Substance Use Type: None, Alcohol, Marijuana Hx Substance Use Treatment: No Review of Systems - Review of Systems Constitutional: No: Chills, Diaphoresis, Fever, Loss of Appetite HEENTM: No: Eye Pain, Blurred Vision, Tearing Respiratory: Yes: Cough, Shortness of Breath. No: Orthopnea Cardiac (ROS): No: Chest Pain, Irregular Heart Rate, Palpitations, Syncope ABD/GI: No: Diarrhea, Nausea, Vomiting : No: Burning, Dysuria, Discharge Musculoskeletal: No: Back Pain, Joint Pain Integumentary: No: Lesions, Lumps, Pallor Neurological: No: Numbness, Paresthesia, Tremors, Weakness Psychiatric: No: Anxiety, Depression Hematologic/Lymphatic: No: Blood Clots, Easy Bleeding *Physical Exam - Physical Exam General Appearance: Yes: Nourished, Appropriately Dressed. No: Apparent Distress HEENT: positive: EOMI, LEOBARDO, Normal ENT Inspection, Normal Voice Neck: positive: Trachea midline, Normal Thyroid, Supple. negative: Tender, Rigid Respiratory/Chest: positive: Chest Tender (admitted to chest tenderness when auscultating his heart), Lungs Clear, Normal Breath Sounds. negative: Respiratory Distress, Accessory Muscle Use Cardiovascular: positive: Regular Rhythm, Regular Rate Gastrointestinal/Abdominal: positive: Normal Bowel Sounds, Flat, Soft. negative : Tender Lymphatic: negative: Adenopathy, Tenderness Musculoskeletal: positive: Normal Inspection. negative: Decreased Range of Motion Extremity: positive: Normal Capillary Refill, Normal Inspection, Normal Range of Motion. negative: Tender Integumentary: positive: Normal Color, Dry, Warm Neurologic: positive: Fully Oriented, Alert, Normal Mood/Affect, Normal Response , Motor Strength 5/5 Medical Decision Making - Medical Decision Making 49 year old undomiciled male presenting with cough and congestion. PE wnl and notation of chest wall tenderness with palpation. Patient denies any other symptoms. Will not pursue workup given stable vitals, lack of concerning complaints, and WNL PE. Will DC with PCP follow up and return precautions. 09/01/19 05:06 Discharge - Discharge Information Problems reviewed: Yes Clinical Impression/Diagnosis: Cough Condition: Improved Disposition: HOME - Admission No - Follow up/Referral Referrals: [facility] [place] [facility] [place] [facility] [place] [Provider Group] - Patient Discharge Instructions Patient Printed Discharge Instructions: How to Avoid a Cold or Flu Additional Instructions: Please use Tylenol, Motrin, and drink plenty of fluid for your cough. Please see your PCP this week. Please return to the ED if you have new or worsening symptoms. - Post Discharge Activity
== END 2019-09-01 07:00 | disposition home or self-care (01) ==
LOC: JER 04:45
DX: R05 Cough (principal); F99 Mental disorder, not otherwise specified; Z87.891 Personal history of nicotine dependence; Z59.0 Homelessness
CPT/HCPCS: 99281-25

== ENCOUNTER 2019-09-07 20:23 | Emergency (ER) | payer SELFPAY ==
[2019-09-07 21:13] VITALS: BMI 30.1
--- NOTE | 2019-09-08 00:14 | PDOC ---
History of Present Illness - General Chief Complaint: Pain Stated Complaint: CHEST PAIN Time Seen by Provider: 09/08/19 00:04 - History of Present Illness Initial Comments: 09/08/19 00:10 49-year-old male complaining of chest wall pain, patient has been seen a multitude of times for the same complaint . No associated trauma. Past History - Travel Traveled outside of the country in the last 30 days: No - Past Medical History Allergies/Adverse Reactions: Allergies Allergy/AdvReac Type Severity Reaction Status Date / Time No Known Allergies Allergy Verified 09/07/19 21:09 Home Medications: Ambulatory Orders NK [No Known Home Medication] 08/18/19 COPD: No Psychiatric Problems: Yes (Schizophrenia,depression) - Psycho Social/Smoking Cessation Hx Smoking History: Current every day smoker Have you smoked in the past 12 months: No Number of Cigarettes Smoked Daily: 20 Information on smoking cessation initiated: No Hx Alcohol Use: No Drug/Substance Use Hx: No Review of Systems - Review of Systems Able to Perform ROS?: Yes Is the patient limited Polish proficient: No Constitutional: No: Symptoms Reported, See HPI, Chills, Diaphoresis, Fever, Loss of Appetite, Malaise, Night Sweats, Weakness, Weight Stable, Unintentional Wgt. Loss, Unexplained wgt Loss, Other HEENTM: No: Symptoms Reported, See HPI, Eye Pain, Blurred Vision, Tearing, Recent change in vision, Double Vision, Cataracts, Ear Pain, Ocular Prothesis, Ear Discharge, Nose Pain, Nose Congestion, Tinnitus, Nose Bleeding, Hearing Loss , Throat Pain, Throat Swelling, Mouth Pain, Dental Problems, Difficulty Swallowing, Mouth Swelling, Other Respiratory: No: Symptoms reported, See HPI, Cough, Orthopnea, Shortness of Breath, SOB with Exertion, SOB at Rest, Stridor, Wheezing, Productive cough, Hemoptysis, Other Cardiac (ROS): Yes: Chest Pain ABD/GI: No: Symptoms Reported, See HPI, Abdominal Distended, Abd. Pain w/ defecation, Blood Streaked Bowels, Constipated, Diarrhea, Difficulty Swallowing , Nausea, Poor Appetite, Poor Fluid Intake, Rectal Bleeding, Vomiting, Indigestion, Abdominal cramping, Tarry Stools, Other Musculoskeletal: No: Symptoms Reported, See HPI, Back Pain, Gout, Joint Pain, Joint Swelling, Muscle Pain, Muscle Weakness, Neck Pain, Joint Stiffness, Other *Physical Exam - Vital Signs Last Vital Signs Temp Pulse Resp BP Pulse Ox 98.2 F 79 18 127/92 98 09/07/19 21:09 09/07/19 21:09 09/07/19 21:09 09/07/19 21:09 09/07/19 21:09 - Physical Exam 09/08/19 00:11 GENERAL: Awake, in no acute distress HEAD: No signs of trauma EYES: ENT:clear without exudates. Moist mucosa NECK: Normal ROM, LUNGS:. Normal work of breathing. HEART: Regular rate and rhythm, ABDOMEN: Soft, nondistended CHEST WALL: Point tenderness left costosternal border reproducing chief complaint NEUROLOGICAL: Alert, Nonfocal SKIN: Warm, Dry Medical Decision Making - Medical Decision Making 09/08/19 00:12 49-year-old male seen multiple times for the same complaint with multiple negative troponins in the past EKG today shows a normal sinus rhythm at 75 bpm with no acute changes, compared to previous EKGs in the past with no significant change Patient has been sleeping comfortably while in the emergency department Plan for discharge home with recommendations for outpatient follow-up Discharge - Discharge Information Problems reviewed: Yes Clinical Impression/Diagnosis: Chest wall pain, Homelessness - Admission No - Follow up/Referral - Patient Discharge Instructions Patient Printed Discharge Instructions: DI for Atypical Chest Pain, DI for Musculoskeletal Pain Additional Instructions: Follow-up with your primary care physician as discussed. Return to the nearest emergency department if your condition worsens. - Post Discharge Activity
[2019-09-08 00:39] VITALS: BP 121/75; PULSE 88; TEMP 97.7
--- NOTE | 2019-09-08 10:45 | EKG ---
Test Reason : Blood Pressure : / mmHG Vent. Rate : 075 BPM Atrial Rate : 075 BPM P-R Int : 138 ms QRS Dur : 086 ms QT Int : 384 ms P-R-T Axes : 054 050 034 degrees QTc Int : 428 ms NORMAL SINUS RHYTHM POSSIBLE LEFT ATRIAL ENLARGEMENT LEFT VENTRICULAR HYPERTROPHY ABNORMAL ECG WHEN COMPARED WITH ECG OF 18-AUG-2019 21:07, NO SIGNIFICANT CHANGE WAS FOUND Confirmed by MIGUE ZEE MD ([id number]) on 09/08/2019 10:44:56 AM Referred By: Confirmed By:MIGUE ZEE MD
== END 2019-09-08 00:30 | disposition home or self-care (01) ==
LOC: JER 20:23 → MERGE 20:23 → JER 09-08 00:30
DX: R07.89 Other chest pain (principal); Z59.0 Homelessness; F17.210 Nicotine dependence, cigarettes, uncomplicated; F20.9 Schizophrenia, unspecified; F32.9 Major depressive disorder, single episode, unspecified
CPT/HCPCS: 93005; 93010; 99282-25

== ENCOUNTER 2019-09-09 00:12 | Emergency (ER) | payer BC ==
[2019-09-09 01:50] VITALS: BP 142/90; PULSE 98; TEMP 97.2; BMI 50.1
--- NOTE | 2019-09-09 02:00 | PDOC ---
Attending Attestation - Resident Resident Name: Parminder Freeman - ED Attending Attestation I have performed the following: I have examined & evaluated the patient, The case was reviewed & discussed with the resident, I agree w/resident's findings & plan - HPI HPI: 09/09/19 01:58 see resident hpi - Physicial Exam PE: 09/09/19 01:58 agree with resident exam - Medical Decision Making 09/09/19 01:58 49-year-old male seen a multitude of times for the same complaint Patient is homeless and frequently requests to just sit in the emergency department He again has reproducible chest pain Will DC and urged patient to seek primary care Of note he has had an admission and cardiac evaluation with multiple negative troponins recently in this facility
--- NOTE | 2019-09-09 02:01 | PDOC ---
History of Present Illness - General Chief Complaint: Cold Symptoms Stated Complaint: CHEST PAIN - History of Present Illness Initial Comments: 09/09/19 01:55 49 yo M with h/o recurrent ED encounters for report of chest pain, who p/w complaint of reproducible, intermittent chest pain. Patient reports months of ongoing, focal, left sided, intermittent, chest pain, that is worse with touch. Patient denies YATES, vision change, palpitations, cough, wheezing, orthopena, PND , leg swelling/pain, N/V, F,C, SOB, urinary complaints, hematuria, BPR, abdominal pain, diarrhea, constipation, lightheadedness, weakness, sensory changes. PMHx: as noted above ROS: as noted SHx: Endorses daily tobacco use 2 ppd 20+ years Allergies: NKDA Past History - Past Medical History Allergies/Adverse Reactions: Allergies Allergy/AdvReac Type Severity Reaction Status Date / Time No Known Allergies Allergy Verified 09/09/19 01:50 Home Medications: Ambulatory Orders NK [No Known Home Medication] 08/15/19 Anemia: No Asthma: No Cancer: No Cardiac Disorders: No CVA: No COPD: No CHF: No Dementia: No Diabetes: No GI Disorders: No Disorders: No HTN: No Hypercholesterolemia: No Kidney Stones: No Liver Disease: No Psychiatric Problems: Yes (schizophrenia not compliant) Seizures: No Thyroid Disease: No - Surgical History Abdominal Surgery: No Appendectomy: No Cardiac Surgery: No Cholecystectomy: No Lung Surgery: No Neurologic Surgery: No Orthopedic Surgery: No - Reproductive History Testicular Surgery: No - Immunization History Immunization Up to Date: Yes - Psycho Social/Smoking Cessation Hx Smoking Status: No Smoking History: Never smoked Have you smoked in the past 12 months: No Number of Cigarettes Smoked Daily: 20 Cigars Per Day: 1 'Breaking Loose' booklet given: 08/11/19 Hx Alcohol Use: No Drug/Substance Use Hx: No Substance Use Type: None, Alcohol, Marijuana Hx Substance Use Treatment: No Review of Systems - Review of Systems Comments:: 09/09/19 02:00 GENERAL/CONSTITUTIONAL: No fever or chills. No weakness. HEAD, EYES, EARS, NOSE AND THROAT: No change in vision. No ear pain or discharge. No sore throat. CARDIOVASCULAR: +chest pain. No shortness of breath RESPIRATORY: No cough, wheezing, or hemoptysis. GASTROINTESTINAL: No nausea, vomiting, diarrhea or constipation. GENITOURINARY: No dysuria, frequency, or change in urination. MUSCULOSKELETAL: No joint or muscle swelling or pain. No neck or back pain. SKIN: No rash NEUROLOGIC: No headache, vertigo, loss of consciousness, or change in strength/ sensation. ENDOCRINE: No increased thirst. No abnormal weight change HEMATOLOGIC/LYMPHATIC: No anemia, easy bleeding, or history of blood clots. ALLERGIC/IMMUNOLOGIC: No hives or skin allergy. *Physical Exam - Vital Signs Last Vital Signs Temp Pulse Resp BP Pulse Ox 97.2 F L 98 H 16 142/90 98 09/09/19 00:15 09/09/19 00:15 09/09/19 00:15 09/09/19 00:15 09/09/19 00:15 - Physical Exam 09/09/19 02:00 GENERAL: Awake, alert, and fully oriented, in no acute distress HEAD: No signs of trauma, normocephalic, atraumatic EYES: PERRLA, EOMI, sclera anicteric, conjunctiva clear ENT: Hearing grossly normal, nares patent, oropharynx clear without exudates. Moist mucosa NECK: Normal ROM, supple, no lymphadenopathy, JVD, or masses LUNGS: No distress, speaks full sentences, clear to auscultation bilaterally HEART: Regular rate and rhythm, normal S1 and S2, no murmurs, rubs or gallops, peripheral pulses normal and equal bilaterally. CHEST: focal, reproducible, anterior, chest wall ttp, at sternal border. ABDOMEN: Soft, nontender, normoactive bowel sounds. No guarding, no rebound. No masses EXTREMITIES : Normal inspection, Normal range of motion, no edema. No clubbing or cyanosis NEUROLOGICAL: Cranial nerves II through XII grossly intact. Normal speech, normal gait, no focal sensorimotor deficits SKIN: Warm, Dry, normal turgor Medical Decision Making - Medical Decision Making 09/09/19 01:58 49 yo M with h/o recurrent ED encounters for report of left sided chest pain, who p/w complaint of reproducible, intermittent. left sided chest pain. Vitals wnl, AF, A&Ox3. Physical exam notable for focal, reproducible, anterior, chest wall ttp, at sternal border. Exam otherwise unremarkable. Patient homless, and frequently presents to [facility] ED, and multiple ED's for similar report. Patient has had multiple cardiac workups in past. Plan on discharge with plan to f/u with PMD. Ed Course: 09/09/19 02:22 EKG: NSR with PVC's, absent INDRA, STD. Nml interval duration and axis. Nml R wave progression. Absent Q waves. similar to prior EKG's. Patient stable for d/c with return precautions Discharge - Discharge Information Problems reviewed: Yes Clinical Impression/Diagnosis: Tenderness of chest wall Condition: Stable Disposition: HOME - Admission No - Follow up/Referral - Patient Discharge Instructions Patient Printed Discharge Instructions: DI for Chest Pain Additional Instructions: Please return to the emergency department with any new or worsening symptoms or concerns. Please follow up with your primary care physician within 72 hours. - Post Discharge Activity
--- NOTE | 2019-09-10 14:11 | EKG ---
Test Reason : Blood Pressure : / mmHG Vent. Rate : 082 BPM Atrial Rate : 082 BPM P-R Int : 174 ms QRS Dur : 086 ms QT Int : 390 ms P-R-T Axes : 080 068 042 degrees QTc Int : 455 ms POOR DATA QUALITY, INTERPRETATION MAY BE ADVERSELY AFFECTED SINUS RHYTHM WITH SINUS ARRHYTHMIA WITH OCCASIONAL FUSION COMPLEXES OTHERWISE NORMAL ECG WHEN COMPARED WITH ECG OF 17-AUG-2019 22:19, PREMATURE VENTRICULAR COMPLEXES ARE NOW PRESENT Confirmed by SANJAY MARCANO MD ([id number]) on 09/10/2019 2:11:20 PM Referred By: Confirmed By:SANJAY MARCANO MD
== END 2019-09-09 02:50 | disposition home or self-care (01) ==
LOC: JER 00:12
DX: R07.89 Other chest pain (principal); F17.210 Nicotine dependence, cigarettes, uncomplicated; F20.9 Schizophrenia, unspecified; F10.10 Alcohol abuse, uncomplicated; F12.10 Cannabis abuse, uncomplicated
CPT/HCPCS: 93005; 93010; 99281-25

== ENCOUNTER 2019-09-10 01:45 | Inpatient (IN) | payer BC, OTHER ==
--- NOTE | 2019-09-10 05:40 | PN ---
S CIWA - CIWA Score Nausea/Vomitin-Mild Nausea/No Vomiting Muscle Tremors: 4-Moderate,w/Arms Extend Anxiety: 4-Mod. Anxious/Guarded Agitation: 4-Moderately Restless Paroxysmal Sweats: No Perspiration Orientation: 2-Disoriented Date<2 days Tacttile Disturbances: 0-None Auditory Disturbances: 0-None Visual Disturbances: 0-None Headache: 2-Mild CIWA-Ar Total Score: 17 BHS Progress Note (SOAP) Subjective: Alcohol dependence in withdrawal Nicotine dependence Cannabis depencence chronic chest pain Objective: 09/10/19 05:43 Tremors Restless Anxious sweating Assessment: 09/10/19 05:44 Alcohol withdrawal symptoms Plan: Admit to detox Librium regimen H and P including medication confirmation to be done in AM by floor MD/BUSINESS AND SERVICES INSTRUCTOR See admission orders
[2019-09-10] MEDS ORDERED: NICOTINE POLACRILEX 2 MG GUM BUC PRN (05:47)
[2019-09-10] MEDS ORDERED: IBUPROFEN 400 MG TABLET (FP) PO PRN (05:47)
[2019-09-10] MEDS ORDERED: ACETAMINOPHEN 325 MG TABLET (FP) PO PRN ×2 (05:47)
[2019-09-10] MEDS ORDERED: MAGNESIUM CITRATE 300 ML BOTTLE PO PRN (05:47)
[2019-09-10] MEDS ORDERED: hydrOXYzine PAMOATE 25 MG CAPSULE (FP) PO PRN (05:47)
[2019-09-10] MEDS ORDERED: MENTHOL/PHENOL 1 EACH UD MM PRN (05:47)
[2019-09-10] MEDS ORDERED: METHOCARBAMOL 500 MG TABLET PO PRN (05:47)
[2019-09-10] MEDS ORDERED: chlordiazePOXIDE HCL 25 MG CAPSULE PO PRN (05:47)
[2019-09-10] MEDS ORDERED: MELATONIN 5 MG TABLETS PO PRN (05:47)
[2019-09-10] MEDS ORDERED: MAGNESIUM HYDROX 2400MG/30ML ORAL SUSPENSION 30 ML CUP PO PRN (05:47)
[2019-09-10] MEDS ORDERED: MAG HYDROX/AL HYDROX/SIMETH 30 ML UNIT-DOSE CUP PO PRN (05:47)
[2019-09-10] MEDS ORDERED: BISMUTH SUBSALICYLATE 524 MG/30 ML UD PO PRN (05:47)
[2019-09-10] MEDS: chlordiazePOXIDE HCL 25 MG CAPSULE PO SCH ×4 (07:05→22:17)
[2019-09-10] MEDS: PRENATAL VITAMINS W/ FOLIC ACID TABLET (FP) PO SCH (10:20)
[2019-09-10] MEDS: NICOTINE 14 MG/24 HOURS TOPICAL PATCH TD SCH (10:20)
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
--- NOTE | 2019-09-10 15:02 | PN ---
B[facility] Progress Note Note: PPD placed today Read PPD FridaySeptember 13
[2019-09-10] MEDS ORDERED: FLU VACCINE QUAD 60 MCG/0.5 ML (MDV 19-20) IM ONE (15:08)
[2019-09-10] MEDS ORDERED: PNEUMOCOCCAL 23 VACCINE 0.5 ML VIAL IM ONE (15:09)
[2019-09-10] MEDS ORDERED: PNEUMOC 13-VAL CONJ-DIP CRM/PF 0.5 ML DISP.SYRIN IM ONE (15:25)
[2019-09-10] MEDS: traZODone HCL 100 MG TABLET (FP) PO SCH (22:17)
[2019-09-10] MEDS: THIAMINE HCL 100 MG TABLET (FP) PO SCH (22:17)
[2019-09-10] MEDS: risperiDONE 1 MG TABLET PO SCH (22:17)
[2019-09-11] MEDS: chlordiazePOXIDE HCL 25 MG CAPSULE PO SCH ×4 (06:39→22:37)
[2019-09-11] MEDS: NICOTINE 14 MG/24 HOURS TOPICAL PATCH TD SCH (10:40)
[2019-09-11] MEDS: PRENATAL VITAMINS W/ FOLIC ACID TABLET (FP) PO SCH (10:40)
[2019-09-11] MEDS: risperiDONE 1 MG TABLET PO SCH ×2 (10:40→22:37)
[2019-09-11 11:14] LABS: HEMATOCRIT 37.5 % (35.4-49); HEMOGLOBIN 12.6 GM/dL (11.7-16.9); MCH 31.2 pg (25.7-33.7); MCHC 33.7 g/dl (32.0-35.9); MEAN CELL VOLUME 92.7 fl (80-96); MEAN PLT VOLUME 9.3 fl (7.5-11.1); PLATELET COUNT 224 K/MM3 (134-434); RBC 4.04 M/mm3 (4.00-5.60); WHITE BLOOD COUNT 5.2 K/mm3 (4.0-10.0)
[2019-09-11 11:34] LABS: ALBUMIN 3.2 g/dl (3.4-5.0); BILIRUBIN,TOTAL 0.5 mg/dL (0.2-1); BLOOD UREA NITROGEN 20.1 mg/dL (7-18); CALCIUM 8.9 mg/dL (8.5-10.1); CREATININE 0.9 mg/dL (0.55-1.3); POTASSIUM 3.9 mmol/L (3.5-5.1); TOT PROT 6.2 g/dl (6.4-8.2)
[2019-09-11] MEDS ORDERED: FLU VACCINE QUAD 60 MCG/0.5 ML (MDV 19-20) IM ONE (12:00)
--- NOTE | 2019-09-11 16:47 | PN ---
S CIWA - CIWA Score Nausea/Vomitin-No Nausea/No Vomiting Muscle Tremors: 3 Anxiety: 3 Agitation: 1-Slight > Activity Paroxysmal Sweats: 3 Orientation: 0-Oriented Tacttile Disturbances: 0-None Auditory Disturbances: 0-None Visual Disturbances: 2-Mild Sensitivity Headache: 0-None Present CIWA-Ar Total Score: 12 BHS Progress Note (SOAP) Subjective: Sweating, Anxious, Tremors, Fatigue. Objective: PATIENT A & O X 3, OBSERVED AMBULATING ON DETOX UNIT UNASSISTED. IN NO ACUTE DISTRESS. 09/11/19 16:44 Vital Signs Temperature 98.1 F 09/11/19 10:00 Pulse Rate 93 H 09/11/19 10:00 Respiratory Rate 18 09/11/19 10:00 Blood Pressure 151/92 09/11/19 10:00 O2 Sat by Pulse Oximetry (%) Laboratory Tests 09/11/19 09/11/19 08:00 08:00 WBC 5.2 RBC 4.04 Hgb 12.6 Hct 37.5 MCV 92.7 MCH 31.2 MCHC 33.7 RDW 14.0 Plt Count 224 MPV 9.3 Sodium 140 Potassium 3.9 Chloride 109 H Carbon Dioxide 25 Anion Gap 6 L BUN 20.1 H Creatinine 0.9 Est GFR (CKD-EPI)AfAm 117.47 Est GFR (CKD-EPI)NonAf 101.35 Random Glucose 135 H Calcium 8.9 Total Bilirubin 0.5 AST 17 ALT 29 Alkaline Phosphatase 98 Total Protein 6.2 L Albumin 3.2 L LABS NOTED. DETOX ADMISSION RPR RESULT PENDING. 09/11/19 16:45 Assessment: 09/11/19 16:45 WITHDRAWAL SYMPTOMS. Plan: CONTINUE DETOX. INCREASE DAILY ORAL WATER INTAKE.
[2019-09-11] MEDS: traZODone HCL 100 MG TABLET (FP) PO SCH (22:37)
[2019-09-11] MEDS: THIAMINE HCL 100 MG TABLET (FP) PO SCH (22:37)
[2019-09-12] MEDS ORDERED: chlordiazePOXIDE HCL 10 MG CAPSULE PO PRN
[2019-09-12] MEDS: chlordiazePOXIDE HCL 10 MG CAPSULE PO SCH ×2 (05:38→09:15)
[2019-09-12] MEDS: risperiDONE 1 MG TABLET PO SCH (09:15)
[2019-09-12] MEDS: PRENATAL VITAMINS W/ FOLIC ACID TABLET (FP) PO SCH (09:15)
[2019-09-12] MEDS: NICOTINE 14 MG/24 HOURS TOPICAL PATCH TD SCH (09:15)
[2019-09-12 10:01] VITALS: BP 117/72; PULSE 99; TEMP 98.1
[2019-09-12] MEDS ORDERED: PNEUMOCOCCAL 23 VACCINE 0.5 ML VIAL IM ONE (12:00)
--- NOTE | 2019-09-12 15:53 | DS ---
[facility] Detox Discharge Summary Admission Date: 09/10/19 Discharge Date: 09/12/19 - History Present History: Alcohol Dependence, Cannabis Dependence Additional Comments: Patient demanded to leave AMA despite encouragement from staff to complete detox. Patient instructed to call [phone] if sick or withdrawal sxs and to see his PCP within 3 days. Patient left in stable condition. Pertinent Past History: Schizophrenia - Physical Exam Results Vital Signs: Vital Signs Temperature 98.1 F 09/12/19 10:01 Pulse Rate 99 H 09/12/19 10:01 Respiratory Rate 16 09/12/19 10:01 Blood Pressure 117/72 09/12/19 10:01 O2 Sat by Pulse Oximetry (%) Pertinent Admission Physical Exam Findings: Withdrawal sxs Laboratory Tests 09/11/19 09/11/19 09/11/19 08:00 08:00 08:00 WBC 5.2 RBC 4.04 Hgb 12.6 Hct 37.5 MCV 92.7 MCH 31.2 MCHC 33.7 RDW 14.0 Plt Count 224 MPV 9.3 Sodium 140 Potassium 3.9 Chloride 109 H Carbon Dioxide 25 Anion Gap 6 L BUN 20.1 H Creatinine 0.9 Est GFR (CKD-EPI)AfAm 117.47 Est GFR (CKD-EPI)NonAf 101.35 Random Glucose 135 H Calcium 8.9 Total Bilirubin 0.5 AST 17 ALT 29 Alkaline Phosphatase 98 Total Protein 6.2 L Albumin 3.2 L RPR Titer Nonreactive Labs reviewed: bun 20.1 (high, encourage PO water intake), serum gluc 135 (high) : denies DM, could be r/t withdrawal; instructed to follow up with PCP for all abnormal lab result - Medication Discharge Medications: Ambulatory Orders NK [No Known Home Medication] 08/15/19 - Diagnosis (1) Azotemia Status: Acute (2) Hyperglycemia Status: Acute (3) Alcohol dependence with uncomplicated withdrawal Status: Acute (4) Cannabis dependence Status: Chronic (5) Nicotine dependence Status: Chronic Qualifiers: Nicotine product type: cigarettes Substance use status: uncomplicated Qualified Code(s): F17.210 - Nicotine dependence, cigarettes, uncomplicated (6) Schizophrenia Status: Chronic Qualifiers: Schizophrenia type: unspecified Qualified Code(s): F20.9 - Schizophrenia, unspecified - AMA Did Patient Leave Against Medical Advice: Yes (Instructed to call [phone] [facility] if sick or withdrawal sxs)
[2019-09-13] MEDS ORDERED: chlordiazePOXIDE HCL 10 MG CAPSULE PO SCH (05:00)
[2019-09-14] MEDS ORDERED: chlordiazePOXIDE HCL 10 MG CAPSULE PO ONE (05:00)
== END 2019-09-12 09:38 | disposition left against medical advice (07) | DRG 894 ==
LOC: YASAS 01:45 → Y6N 05:54
PROVIDERS: ADMIT Allergy & Immunology; ATTEND Allergy & Immunology
PROC: HZ2ZZZZ Detoxification Services for Substance Abuse Treatment (ICD-10-PCS; principal; 2019-09-10)
DX: F10.230 Alcohol dependence with withdrawal, uncomplicated (principal); I24.9 Acute ischemic heart disease, unspecified; F10.24 Alcohol dependence with alcohol-induced mood disorder; F10.282 Alcohol dependence with alcohol-induced sleep disorder; F12.20 Cannabis dependence, uncomplicated; F17.210 Nicotine dependence, cigarettes, uncomplicated; F20.9 Schizophrenia, unspecified; R07.89 Other chest pain; R79.89 Other specified abnormal findings of blood chemistry; R73.9 Hyperglycemia, unspecified; Z62.810 Personal history of physical and sexual abuse in childhood; Z59.0 Homelessness
CPT/HCPCS: 36415; 80053; 85027; 86593; G0008; J2794; Q2036

== ENCOUNTER 2019-09-16 19:42 | Emergency (ER) | payer SELFPAY ==
--- NOTE | 2019-09-16 19:55 | PDOC ---
Rapid Medical Evaluation Chief Complaint: Chest Pain Time Seen by Provider: 09/16/19 19:52 Medical Evaluation: Allergies Allergy/AdvReac Type Severity Reaction Status Date / Time No Known Allergies Allergy Verified 09/16/19 19:52 09/16/19 19:52 CC: bodyaches, chills, cp Pt is a 49 y/o male with complaint of chest pain, cough, chills, bodyaches that started tonight. He denies any recent travel. Brief exam: non-toxic appearing, speaking in full sentences, no respiratory distress Orders: labs, cxr, ekg To ED for further evaluation Discharge Disposition - Diagnosis Flu-like symptoms - Referrals - Patient Instructions - Post Discharge Activity
[2019-09-16 19:56] VITALS: BMI 30.1
[2019-09-16] MEDS ORDERED: IBUPROFEN 600 MG TABLET (FP) PO ONE (19:56)
[2019-09-16 21:02] LABS: BASO % 0.3 % (0-2.0); HEMATOCRIT 39.9 % (35.4-49); HEMOGLOBIN 13.5 GM/dL (11.7-16.9); LYMPH % 6.3 % (8-40); MCH 31.3 pg (25.7-33.7); MCHC 33.7 g/dl (32.0-35.9); MEAN CELL VOLUME 92.9 fl (80-96); MONO % 11.1 % (3.8-10.2); NEUT % 81.3 % (42.8-82.8); PLATELET COUNT 221 K/MM3 (134-434); RDW 14.3 % (11.9-15.9); WHITE BLOOD COUNT 7.3 K/mm3 (4.0-10.0)
[2019-09-16 21:25] LABS: ALBUMIN 3.8 g/dl (3.4-5.0); BILIRUBIN,TOTAL 0.3 mg/dL (0.2-1); BLOOD UREA NITROGEN 17.2 mg/dL (7-18); CALCIUM 8.8 mg/dL (8.5-10.1); MAGNESIUM 2.4 mg/dL (1.8-2.4); POTASSIUM 4.3 mmol/L (3.5-5.1); TOT PROT 7.6 g/dl (6.4-8.2)
[2019-09-17] MEDS ORDERED: IBUPROFEN 600 MG TABLET (FP) PO ONE (00:26)
--- NOTE | 2019-09-17 00:44 | PDOC ---
History of Present Illness - General Chief Complaint: Cold Symptoms Stated Complaint: chest pain Time Seen by Provider: 09/16/19 19:52 History Source: Patient Exam Limitations: No Limitations - History of Present Illness Initial Comments: 09/17/19 00:36 Patient is a 49M with reported history of schizophrenia here today complaining of chest pain. Patient is well known to the ED with multiple complaints of chest pain, all with normal workups including multiple troponins and ekgs. Patient states his chest pain is the same as it usually is. Patient also endorses a cough, which started last night. Denies sick contacts. Denies leg pain. Denies weakness. Past History - Past Medical History Allergies/Adverse Reactions: Allergies Allergy/AdvReac Type Severity Reaction Status Date / Time No Known Allergies Allergy Verified 09/16/19 19:52 Home Medications: Ambulatory Orders NK [No Known Home Medication] 08/18/19 COPD: No Psychiatric Problems: Yes (Schizophrenia,depression) - Immunization History Immunization Up to Date: Yes - Psycho Social/Smoking Cessation Hx Smoking History: Never smoked Have you smoked in the past 12 months: No Number of Cigarettes Smoked Daily: 20 Information on smoking cessation initiated: No Hx Alcohol Use: No Drug/Substance Use Hx: No Review of Systems - Review of Systems Able to Perform ROS?: Yes Comments:: 09/17/19 00:44 GENERAL/CONSTITUTIONAL: No fever or chills. No weakness. HEAD, EYES, EARS, NOSE AND THROAT: No change in vision. No sore throat. CARDIOVASCULAR:+ chest pain no shortness of breath RESPIRATORY: +cough, no wheezing, or hemoptysis. GASTROINTESTINAL: No nausea, vomiting, diarrhea or constipation. GENITOURINARY: No dysuria, frequency, or change in urination. MUSCULOSKELETAL: No joint or muscle swelling or pain. No neck or back pain. SKIN: No rash NEUROLOGIC: No headache, vertigo, loss of consciousness, or change in strength/ sensation. ENDOCRINE: No increased thirst. No abnormal weight change HEMATOLOGIC/LYMPHATIC: No anemia, easy bleeding, or history of blood clots. ALLERGIC/IMMUNOLOGIC: No hives or skin allergy. *Physical Exam - Vital Signs Last Vital Signs Temp Pulse Resp BP Pulse Ox 101.7 F H 95 H 17 125/100 95 09/16/19 19:52 09/16/19 19:52 09/16/19 19:52 09/16/19 19:52 09/16/19 19:52 - Physical Exam 09/17/19 00:45 GENERAL: Awake, alert, and fully oriented, in no acute distress HEAD: No signs of trauma, normocephalic, atraumatic EYES: PERRLA, EOMI, sclera anicteric, conjunctiva clear ENT: Auricles normal inspection, hearing grossly normal, nares patent, oropharynx clear without exudates. Moist mucosa NECK: Normal ROM, supple, no lymphadenopathy, JVD, or masses LUNGS: No distress, speaks full sentences, clear to auscultation bilaterally HEART: Regular rate and rhythm, normal S1 and S2, no murmurs, rubs or gallops, peripheral pulses normal and equal bilaterally. ABDOMEN: Soft, nontender, normoactive bowel sounds. No guarding, no rebound. No masses EXTREMITIES: Normal inspection, Normal range of motion, no edema. No clubbing or cyanosis. NEUROLOGICAL: Cranial nerves II through XII grossly intact. Normal speech, normal gait, no focal sensorimotor deficits SKIN: Warm, Dry, normal turgor, no rashes or lesions noted. ED Treatment Course - LABORATORY CBC & Chemistry Diagram: 09/16/19 20:13 09/16/19 20:13 - ADDITIONAL ORDERS Additional order review: Laboratory Results 09/16/19 09/16/19 20:13 20:13 Sodium 135 L Potassium 4.3 Chloride 103 Carbon Dioxide 27 Anion Gap 6 L BUN 17.2 Creatinine 1.0 Est GFR (CKD-EPI)AfAm 103.42 Est GFR (CKD-EPI)NonAf 89.23 Random Glucose 85 Calcium 8.8 Magnesium 2.4 Total Bilirubin 0.3 AST 25 ALT 39 Alkaline Phosphatase 103 Creatine Kinase 273 Creatine Kinase Index 0.4 CK-MB (CK-2) 1.1 Troponin I < 0.02 Total Protein 7.6 Albumin 3.8 09/16/19 20:13 RBC 4.30 MCV 92.9 MCHC 33.7 RDW 14.3 MPV 9.0 Neutrophils % 81.3 Lymphocytes % 6.3 L Monocytes % 11.1 H Eosinophils % 1.0 Basophils % 0.3 - Medications Given in the ED: ED Medications Discontinued Medications Generic Name Dose Route Start Last Admin Trade Name Freq PRN Reason Stop Dose Admin Ibuprofen 600 mg 09/16/19 19:56 09/17/19 00:31 Motrin - PO 09/16/19 19:57 600 mg ONCE ONE Administration Medical Decision Making - Medical Decision Making 09/17/19 00:46 Patient is 49M here today with chest pain, cough. Vitals notable for fever and tachycardia. Patient does not show any signs of disregulated immune response, therefore is not septic. Chest pain is not typical, patient has long history of similar complaints Will treat with PO hydration and motrin, recheck vitals. Will workup chest pain with cardiac labs, ekg, cxr. DDx includes but is not limited to: acs, pneumonia, viral syndrome, URI. EKG shows NSR with rate of 99. No st elevations/depressions. Normal axis. Normal intervals. No significant t wave abnormalities Trop neg CBC normal CMP normal CXR shows no acute process. Suspect viral syndrome, will recheck vitals at 1:30, likely discharge. 09/17/19 02:01 Vitals improved. Will discharge home. Suspect viral syndrome. Discharge - Discharge Information Problems reviewed: Yes Clinical Impression/Diagnosis: Flu-like symptoms Condition: Good Disposition: HOME - Admission No - Follow up/Referral Referrals: [facility] [place] [facility] [address] [Provider Group] - Patient Discharge Instructions Patient Printed Discharge Instructions: DI for Viral Upper Respiratory Infection -- Adult Additional Instructions: Please return if you have any new, worsening or concerning symptoms. Please follow up with the primary care doctors below. - Post Discharge Activity
--- NOTE | 2019-09-17 01:41 | PDOC ---
Attending Attestation - Resident Resident Name: Delfino Corrigan - ED Attending Attestation I have performed the following: I have examined & evaluated the patient, The case was reviewed & discussed with the resident, I agree w/resident's findings & plan, Exceptions are as noted - HPI HPI: 09/17/19 01:38 49 M with h/o schizophrenia, presenting to ED for chest pain and cough. Pt has had multiple visits for chest pain with negative work ups. He states that the pain he has now is the same pain he has had during his previous visits. Denies SOB. Pt also notes new development of cough since last night. Denies subjective F/C. - Physicial Exam PE: 09/17/19 01:39 "GENERAL: Awake, alert, and fully oriented, in no acute distress. HEAD: No signs of trauma EYES: PERRLA, EOMI, sclera anicteric, conjunctiva clear ENT: Auricles normal inspection, hearing grossly normal, nares patent, oropharynx clear without exudates. Moist mucosa NECK: Nontender, no stepoffs, Normal ROM, supple, no lymphadenopathy, JVD, or masses LUNGS: Breath sounds equal, clear to auscultation bilaterally. No wheezes, and no crackles HEART: Regular rate and rhythm, normal S1 and S2, no murmurs, rubs or gallops ABDOMEN: Soft, nontender, normoactive bowel sounds. No guarding, no rebound. No masses EXTREMITIES: Normal range of motion, no edema. No clubbing or cyanosis. No cords, erythema, or tenderness NEUROLOGICAL: Cranial nerves II through XII intact. 5/5 strength and sensation in all extremities, Normal speech, normal gait, normal cerebellar function SKIN: Warm, Dry, normal turgor, no rashes or lesions noted. - Medical Decision Making 09/17/19 01:40 49 M with cough and chest pain. Febrile in ED. Likely viral URI. EKG with no ischemic changes. Will r/o ACS with single trop given chronicity of chest pain. - Labs, trop - CXR - Motrin 09/17/19 01:41 Labs wnl CXR clear on my read 09/17/19 02:01 Repeat vitals wnl Pt is well appearing, with normal vitals. Clinically stable for DC at this time. I discussed the physical exam findings, ancillary test results and final diagnoses with the patient. I answered all of the patient's questions. The patient was satisfied with the care received and felt comfortable with the discharge plan and treatment plan. The patient agrees to follow up with the primary care physician within 24-72 hours.
[2019-09-17 02:02] VITALS: BP 114/63; PULSE 90; TEMP 99.6
--- NOTE | 2019-09-17 15:09 | EKG ---
Test Reason : Blood Pressure : / mmHG Vent. Rate : 099 BPM Atrial Rate : 099 BPM P-R Int : 150 ms QRS Dur : 076 ms QT Int : 322 ms P-R-T Axes : 067 053 035 degrees QTc Int : 413 ms NORMAL SINUS RHYTHM POSSIBLE LEFT ATRIAL ENLARGEMENT LEFT VENTRICULAR HYPERTROPHY ABNORMAL ECG WHEN COMPARED WITH ECG OF 07-SEP-2019 20:35, NO SIGNIFICANT CHANGE WAS FOUND Confirmed by SANJAY MARCANO MD ([id number]) on 09/17/2019 3:09:05 PM Referred By: Confirmed By:SANJAY MARCANO MD
== END 2019-09-17 02:11 | disposition home or self-care (01) ==
LOC: MERGE 19:42 → JER 19:42
DX: J11.1 Influenza due to unidentified influenza virus with other respiratory manifestations (principal); F20.9 Schizophrenia, unspecified; F32.9 Major depressive disorder, single episode, unspecified
CPT/HCPCS: 36415; 71046-TC-FY; 80053; 82550; 82553; 83735; 84484; 85025; 93005; 93010; 99283-25

== ENCOUNTER 2019-09-21 11:05 | Inpatient (IN) | payer OTHER ==
[2019-09-21 13:26] VITALS: BMI 31.7
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
[2019-09-21] MEDS ORDERED: ACETAMINOPHEN 325 MG TABLET (FP) PO PRN (18:46)
[2019-09-21] MEDS ORDERED: MENTHOL/PHENOL 1 EACH UD MM PRN (18:46)
[2019-09-21] MEDS ORDERED: P-EPHED 60MG/TRIPROLIDI 2.5MG TABLET PO PRN (18:46)
[2019-09-21] MEDS ORDERED: MAG HYDROX/AL HYDROX/SIMETH 30 ML UNIT-DOSE CUP PO PRN (18:46)
[2019-09-21] MEDS ORDERED: MAGNESIUM CITRATE 300 ML BOTTLE PO PRN (18:46)
[2019-09-21] MEDS ORDERED: MAGNESIUM HYDROX 2400MG/30ML ORAL SUSPENSION 30 ML CUP PO PRN (18:46)
[2019-09-21] MEDS ORDERED: LOPERAMIDE HCL 2 MG CAPSULE PO PRN (18:46)
[2019-09-21] MEDS ORDERED: guaiFENesin 200 MG/10 ML 10 ML UNIT-DOSE CUPS PO PRN (18:46)
[2019-09-21] MEDS ORDERED: IBUPROFEN 400 MG TABLET (FP) PO PRN (18:46)
[2019-09-21] MEDS: THIAMINE HCL 100 MG TABLET (FP) PO SCH (21:47)
[2019-09-22 10:06] LABS: HEMATOCRIT 40.3 % (35.4-49); HEMOGLOBIN 13.4 GM/dL (11.7-16.9); MCH 30.9 pg (25.7-33.7); MCHC 33.3 g/dl (32.0-35.9); MEAN CELL VOLUME 92.8 fl (80-96); MEAN PLT VOLUME 9.4 fl (7.5-11.1); PLATELET COUNT 204 K/MM3 (134-434); RBC 4.34 M/mm3 (4.00-5.60); RDW 14.3 % (11.9-15.9); WHITE BLOOD COUNT 4.1 K/mm3 (4.0-10.0)
[2019-09-22 10:17] LABS: ALBUMIN 3.7 g/dl (3.4-5.0); BILIRUBIN,TOTAL 0.3 mg/dL (0.2-1); BLOOD UREA NITROGEN 19.5 mg/dL (7-18); CALCIUM 8.2 mg/dL (8.5-10.1); POTASSIUM 4.4 mmol/L (3.5-5.1); TOT PROT 7.3 g/dl (6.4-8.2)
[2019-09-22] MEDS: hydrOXYzine PAMOATE 25 MG CAPSULE (FP) PO PRN (10:17)
[2019-09-22] MEDS: PRENATAL VITAMINS W/ FOLIC ACID TABLET (FP) PO SCH (10:17)
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
[2019-09-22] MEDS: risperiDONE 1 MG TABLET PO SCH ×2 (14:36→21:27)
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
[2019-09-22] MEDS: MELATONIN 5 MG TABLETS PO PRN (21:27)
[2019-09-22] MEDS: THIAMINE HCL 100 MG TABLET (FP) PO SCH (21:27)
[2019-09-22] MEDS: traZODone HCL 100 MG TABLET (FP) PO SCH (21:29)
[2019-09-23] MEDS: risperiDONE 1 MG TABLET PO SCH ×2 (10:15→21:39)
[2019-09-23] MEDS: PRENATAL VITAMINS W/ FOLIC ACID TABLET (FP) PO SCH (10:15)
[2019-09-23] MEDS: BACITRACIN 15 GM TUBE TOPICAL OINTMENT TP SCH ×2 (10:15→21:40)
[2019-09-23] MEDS: hydrOXYzine PAMOATE 25 MG CAPSULE (FP) PO PRN (10:15)
[2019-09-23] MEDS: traZODone HCL 100 MG TABLET (FP) PO SCH (21:39)
[2019-09-23] MEDS: THIAMINE HCL 100 MG TABLET (FP) PO SCH (21:39)
[2019-09-23] MEDS: MELATONIN 5 MG TABLETS PO PRN (21:40)
[2019-09-24 07:51] VITALS: BP 151/88; PULSE 80; TEMP 97.2
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
--- NOTE | 2019-09-24 09:13 | PN ---
[facility] Progress Note Note: Patient is discharged today. Scripts for 30 days supply of medications( Risperdal 1 mg/bid, Trazadone 100 mg/hs) are electronically transmitted to [facility] at [address] [place] [address]
[2019-09-24] MEDS: BACITRACIN 15 GM TUBE TOPICAL OINTMENT TP SCH (09:17)
[2019-09-24] MEDS: PRENATAL VITAMINS W/ FOLIC ACID TABLET (FP) PO SCH (09:17)
[2019-09-24] MEDS: risperiDONE 1 MG TABLET PO SCH (09:17)
== END 2019-09-24 09:35 | disposition home or self-care (01) | DRG 895 ==
LOC: YASAS 11:05 → Y5N 19:20
PROVIDERS: ADMIT Allergy & Immunology; ATTEND Allergy & Immunology
PROC: HZ42ZZZ Group Counseling for Substance Abuse Treatment, Cognitive-Behavioral (ICD-10-PCS; principal; 2019-09-21)
DX: F10.20 Alcohol dependence, uncomplicated (principal); F16.20 Hallucinogen dependence, uncomplicated; F10.24 Alcohol dependence with alcohol-induced mood disorder; F10.282 Alcohol dependence with alcohol-induced sleep disorder; F12.20 Cannabis dependence, uncomplicated; F17.210 Nicotine dependence, cigarettes, uncomplicated; F20.9 Schizophrenia, unspecified
CPT/HCPCS: 36415; 80053; 85027; 86593; J2794

== ENCOUNTER 2019-10-04 19:38 | Inpatient (IN) | payer OTHER ==
--- NOTE | 2019-10-04 20:20 | BHS.RME ---
Substance Use & Tx History - Substance Use History Alcohol Substance amount: 1 pint Frequency of use: Daily (Since age 19.) Substance route: Oral Date of Last Use: 10/04/19 (CORKY: 0.017) PCP Substance amount: 3 blunts Frequency of use: Daily (Started at age 19.) Substance route: Smoking Date of Last Use: 10/04/19 (Utox- neg) Cannabis Substance amount: 3 blunts Frequency of use: Daily (Since age 19.) Substance route: Smoking Date of Last Use: 10/04/19 (Utox- neg) Nicotine Substance amount: 40 Frequency of use: Daily Substance route: Smoking (Nicotine use began at age 18) Date of Last Use: 10/04/19 - Last Treatment Date of last treatment: 09/21-02/2020 Treatment type: Substance Use Disorder (CHARLA) Where was last treatment: Rehab (Stayed 3 days.) Physical/Psych/Mental Status - Behavior Eye Contact: Decreased - Cooperativeness Cooperativeness: Cooperative - Physical Health Problems Is patient presently having any pain?: Yes (Body aches) Does patient presently have any injuries (include location): No Does patient currently have a fever: No Is patient : No CIWA Nausea/Vomitin-No Nausea/No Vomiting Muscle Tremors: 4-Moderate,w/Arms Extend Anxiety: 1-Mildly Anxious Agitation: 0-Normal Activity Paroxysmal Sweats: No Perspiration Orientation: 1-Uncertain about Date Tacttile Disturbances: 0-None Auditory Disturbances: 0-None (Hx - none recently) Visual Disturbances: 0-None Headache: 0-None Present CIWA-Ar Total Score: 6
[2019-10-04 21:03] VITALS: BMI 30.1
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
[2019-10-04] MEDS ORDERED: MAGNESIUM CITRATE 300 ML BOTTLE PO PRN (21:46)
[2019-10-04] MEDS ORDERED: guaiFENesin 200 MG/10 ML 10 ML UNIT-DOSE CUPS PO PRN (21:46)
[2019-10-04] MEDS ORDERED: ACETAMINOPHEN 325 MG TABLET (FP) PO PRN ×2 (21:46)
[2019-10-04] MEDS ORDERED: NICOTINE POLACRILEX 4 MG GUM BUC PRN (21:46)
[2019-10-04] MEDS ORDERED: MENTHOL/PHENOL 1 EACH UD MM PRN (21:46)
[2019-10-04] MEDS ORDERED: BISMUTH SUBSALICYLATE 524 MG/30 ML UD PO PRN (21:46)
[2019-10-04] MEDS ORDERED: MELATONIN 5 MG TABLETS PO PRN (21:46)
[2019-10-04] MEDS ORDERED: MAGNESIUM HYDROX 2400MG/30ML ORAL SUSPENSION 30 ML CUP PO PRN (21:46)
[2019-10-04] MEDS ORDERED: MAG HYDROX/AL HYDROX/SIMETH 30 ML UNIT-DOSE CUP PO PRN (21:46)
[2019-10-04] MEDS ORDERED: IBUPROFEN 400 MG TABLET (FP) PO PRN (21:46)
[2019-10-04] MEDS: THIAMINE HCL 100 MG TABLET (FP) PO SCH (23:16)
[2019-10-04] MEDS: BACITRACIN 15 GM TUBE TOPICAL OINTMENT TP SCH (23:21)
[2019-10-05] MEDS ORDERED: chlordiazePOXIDE HCL 10 MG CAPSULE PO PRN (00:36)
[2019-10-05] MEDS: chlordiazePOXIDE HCL 25 MG CAPSULE PO SCH ×3 (05:32→22:20)
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
[2019-10-05] MEDS: NICOTINE 21 MG/24 HOURS TOPICAL PATCH TD SCH (10:06)
[2019-10-05] MEDS: BACITRACIN 15 GM TUBE TOPICAL OINTMENT TP SCH (10:06)
[2019-10-05] MEDS: PRENATAL VITAMINS W/ FOLIC ACID TABLET (FP) PO SCH (10:06)
[2019-10-05] MEDS: risperiDONE 1 MG TABLET PO SCH ×2 (10:07→22:20)
--- NOTE | 2019-10-05 12:09 | PN ---
BHS CIWA - CIWA Score Nausea/Vomitin Muscle Tremors: 2 Anxiety: 2 Agitation: 2 Paroxysmal Sweats: No Perspiration Orientation: 0-Oriented Tacttile Disturbances: 1-Very Mild Itch/Numbness Auditory Disturbances: 0-None Visual Disturbances: 0-None Headache: 2-Mild CIWA-Ar Total Score: 11 BHS Progress Note (SOAP) Subjective: alert,irritable,anxious,interrupted sleep,tremor Objective: 10/05/19 12:07 Vital Signs Temperature 98.1 F 10/05/19 09:15 Pulse Rate 63 10/05/19 09:15 Respiratory Rate 18 10/05/19 09:15 Blood Pressure 117/81 10/05/19 09:15 O2 Sat by Pulse Oximetry (%) labs pending Assessment: 10/05/19 12:08 withdrawal symptom Plan: continue detox librium regimen
[2019-10-05 12:40] LABS: HEMATOCRIT 38.2 % (35.4-49); HEMOGLOBIN 12.8 GM/dL (11.7-16.9); MCH 30.8 pg (25.7-33.7); MCHC 33.5 g/dl (32.0-35.9); MEAN CELL VOLUME 91.8 fl (80-96); PLATELET COUNT 257 K/MM3 (134-434); RBC 4.16 M/mm3 (4.00-5.60); RDW 14.2 % (11.9-15.9); WHITE BLOOD COUNT 5.8 K/mm3 (4.0-10.0)
[2019-10-05 12:51] LABS: ALBUMIN 3.5 g/dl (3.4-5.0); BILIRUBIN,TOTAL 0.3 mg/dL (0.2-1); BLOOD UREA NITROGEN 19.3 mg/dL (7-18); CREATININE 1.1 mg/dL (0.55-1.3); POTASSIUM 4.1 mmol/L (3.5-5.1)
[2019-10-05] MEDS: THIAMINE HCL 100 MG TABLET (FP) PO SCH (22:20)
[2019-10-05] MEDS: traZODone HCL 100 MG TABLET (FP) PO SCH (22:20)
[2019-10-06] MEDS: chlordiazePOXIDE 5 MG CAPSULE PO SCH ×3 (07:04→21:50)
[2019-10-06] MEDS: NICOTINE 21 MG/24 HOURS TOPICAL PATCH TD SCH (10:11)
[2019-10-06] MEDS: risperiDONE 1 MG TABLET PO SCH ×2 (10:11→22:50)
[2019-10-06] MEDS: PRENATAL VITAMINS W/ FOLIC ACID TABLET (FP) PO SCH (10:11)
--- NOTE | 2019-10-06 12:59 | PN ---
S CIWA - CIWA Score Nausea/Vomitin-Mild Nausea/No Vomiting Muscle Tremors: 1-None Visible, but [place] Anxiety: 1-Mildly Anxious Agitation: 1-Slight > Activity Paroxysmal Sweats: 2 Orientation: 0-Oriented Tacttile Disturbances: 1-Very Mild Itch/Numbness Auditory Disturbances: 0-None Visual Disturbances: 0-None Headache: 0-None Present CIWA-Ar Total Score: 7 BHS Progress Note (SOAP) Subjective: interrupted sleep, sweats, Objective: 10/06/19 12:57 Vital Signs Temp 97.6 F 10/06/19 09:40 Pulse 82 10/06/19 09:40 Resp 19 10/06/19 09:40 BP 119/73 10/06/19 09:40 Pulse Ox Intake & Output 10/05/19 10/06/19 10/06/19 23:59 11:59 23:59 Other: Voiding Method Toilet Toilet Laboratory Tests 10/05/19 10/05/19 08:45 08:45 WBC 5.8 RBC 4.16 Hgb 12.8 Hct 38.2 MCV 91.8 MCH 30.8 MCHC 33.5 RDW 14.2 Plt Count 257 D MPV 9.0 Sodium 140 Potassium 4.1 Chloride 109 H Carbon Dioxide 27 Anion Gap 5 L BUN 19.3 H Creatinine 1.1 Est GFR (CKD-EPI)AfAm 92.16 Est GFR (CKD-EPI)NonAf 79.52 Random Glucose 101 Calcium 9.0 Total Bilirubin 0.3 AST 18 ALT 23 Alkaline Phosphatase 85 Total Protein 7.0 Albumin 3.5 pt aox3 in nad ambulating Assessment: 10/06/19 12:59 withdrawal sx's Plan: cont. detox increase fluids
[2019-10-06] MEDS: BACITRACIN 15 GM TUBE TOPICAL OINTMENT TP SCH (14:37)
[2019-10-06] MEDS: traZODone HCL 100 MG TABLET (FP) PO SCH (22:50)
[2019-10-06] MEDS: THIAMINE HCL 100 MG TABLET (FP) PO SCH (22:51)
[2019-10-07] MEDS ORDERED: chlordiazePOXIDE HCL 10 MG CAPSULE PO PRN
[2019-10-07] MEDS: chlordiazePOXIDE HCL 10 MG CAPSULE PO SCH ×3 (06:30→22:13)
[2019-10-07] MEDS ORDERED: cloNIDine HCL 0.1 MG TABLET PO PRN (10:50)
--- NOTE | 2019-10-07 10:53 | PN ---
BHS CIWA - CIWA Score Nausea/Vomitin-Mild Nausea/No Vomiting Muscle Tremors: 2 Anxiety: 1-Mildly Anxious Agitation: 1-Slight > Activity Paroxysmal Sweats: No Perspiration Orientation: 0-Oriented Tacttile Disturbances: 0-None Auditory Disturbances: 0-None Visual Disturbances: 0-None Headache: 0-None Present CIWA-Ar Total Score: 5 BHS Progress Note (SOAP) Subjective: pt to be discharged tomorrow. Here for alcohol detox O: Vital Signs - 24 hr 10/06/19 10/06/19 10/06/19 13:47 16:21 20:43 Temperature 97.2 F L 98.1 F 98.6 F Pulse Rate 92 H 74 76 Respiratory 18 16 18 Rate Blood Pressure 136/84 111/73 118/75 10/07/19 10/07/19 10/07/19 00:27 03:15 05:56 Temperature 97.9 F Pulse Rate 71 Respiratory 18 18 18 Rate Blood Pressure 102/62 10/07/19 08:36 Temperature 97.9 F Pulse Rate 79 Respiratory 18 Rate Blood Pressure 104/75 Laboratory Tests 10/05/19 10/05/19 08:45 08:45 WBC 5.8 RBC 4.16 Hgb 12.8 Hct 38.2 MCV 91.8 MCH 30.8 MCHC 33.5 RDW 14.2 Plt Count 257 D MPV 9.0 Sodium 140 Potassium 4.1 Chloride 109 H Carbon Dioxide 27 Anion Gap 5 L BUN 19.3 H Creatinine 1.1 Est GFR (CKD-EPI)AfAm 92.16 Est GFR (CKD-EPI)NonAf 79.52 Random Glucose 101 Calcium 9.0 Total Bilirubin 0.3 AST 18 ALT 23 Alkaline Phosphatase 85 Total Protein 7.0 Albumin 3.5 a/p AUD- completing detox protocol, anticipate discharge tomorrow. pt would like a sleeping med- prn trazodone X1 tonight
[2019-10-07] MEDS: PRENATAL VITAMINS W/ FOLIC ACID TABLET (FP) PO SCH (11:04)
[2019-10-07] MEDS: risperiDONE 1 MG TABLET PO SCH ×2 (11:04→22:13)
[2019-10-07] MEDS: NICOTINE 21 MG/24 HOURS TOPICAL PATCH TD SCH (11:05)
[2019-10-07] MEDS: BACITRACIN 15 GM TUBE TOPICAL OINTMENT TP SCH (11:06)
[2019-10-07] MEDS ORDERED: amLODIPine BESYLATE 10 MG TABLET (FP) PO ONE (12:04)
[2019-10-07] MEDS: traZODone HCL 100 MG TABLET (FP) PO SCH (22:13)
[2019-10-07] MEDS: THIAMINE HCL 100 MG TABLET (FP) PO SCH (22:13)
[2019-10-08] MEDS ORDERED: chlordiazePOXIDE HCL 10 MG CAPSULE PO ONE (05:00)
[2019-10-08 06:31] VITALS: BP 134/72; PULSE 76; TEMP 97.5
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
[2019-10-08] MEDS: PRENATAL VITAMINS W/ FOLIC ACID TABLET (FP) PO SCH (10:21)
[2019-10-08] MEDS: risperiDONE 1 MG TABLET PO SCH (10:21)
[2019-10-08] MEDS: NICOTINE 21 MG/24 HOURS TOPICAL PATCH TD SCH (10:21)
== END 2019-10-08 09:41 | disposition home or self-care (01) | DRG 897 ==
LOC: YASAS 19:38 → Y6N 21:35
PROVIDERS: ADMIT Allergy & Immunology; ATTEND Allergy & Immunology
PROC: HZ2ZZZZ Detoxification Services for Substance Abuse Treatment (ICD-10-PCS; principal; 2019-10-04)
DX: F10.230 Alcohol dependence with withdrawal, uncomplicated (principal); F16.20 Hallucinogen dependence, uncomplicated; F12.20 Cannabis dependence, uncomplicated; F17.210 Nicotine dependence, cigarettes, uncomplicated; F20.9 Schizophrenia, unspecified; F32.9 Major depressive disorder, single episode, unspecified; S80.811D Abrasion, right lower leg, subsequent encounter; X58.XXXD Exposure to other specified factors, subsequent encounter; Z62.810 Personal history of physical and sexual abuse in childhood; Z91.410 Personal history of adult physical and sexual abuse; Z94.5 Skin transplant status
CPT/HCPCS: 36415; 80053; 85027; J2794

== ENCOUNTER 2019-10-11 06:00 | Emergency (ER) | payer OTHER ==
[2019-10-11 06:40] VITALS: BMI 32.3
--- NOTE | 2019-10-11 07:57 | PDOC ---
History of Present Illness - General History Source: Patient Exam Limitations: No Limitations - History of Present Illness Initial Comments: 10/11/19 07:24 49 yo male pmh schizophrenia and ETOH abuse presents from [facility] triage with CP. Pt well known to the ED for many prior complaints of CP all with normal work ups (EKG and Trops). CP is described as similar in quality and intensity as prior episodes, described as sharp, non exertional, no associated nausea or diaphoresis, no radiation of pain. Denies recent travel, new calf tenderness or leg swelling, denies F/C, SOB, abdominal pain, back pain, changes in bowel or bladder habits <Yovanny Simeon - Last Filed: 10/11/19 09:09> <Salvador Faust - Last Filed: 10/11/19 11:22> - General Chief Complaint: Chest Pain Stated Complaint: CHEST PAIN Time Seen by Provider: 10/11/19 07:19 Past History - Past Medical History Anemia: No Asthma: No Cancer: No Cardiac Disorders: No CVA: No COPD: No CHF: No Dementia: No Diabetes: No GI Disorders: No Disorders: No HTN: No Hypercholesterolemia: No Kidney Stones: No Liver Disease: No Psychiatric Problems: Yes (Schizophrenia,depression) Seizures: No Thyroid Disease: No - Surgical History Abdominal Surgery: No Appendectomy: No Cardiac Surgery: No Cholecystectomy: No Lung Surgery: No Neurologic Surgery: No Orthopedic Surgery: No - Reproductive History Testicular Surgery: No - Immunization History Immunization Up to Date: Yes - Psycho Social/Smoking Cessation Hx Smoking Status: No Smoking History: Unknown if ever smoked Have you smoked in the past 12 months: No Number of Cigarettes Smoked Daily: 20 Cigars Per Day: 1 'Breaking Loose' booklet given: 10/04/19 Hx Alcohol Use: Yes Drug/Substance Use Hx: Yes Substance Use Type: Alcohol Hx Substance Use Treatment: Yes (deox, rehab) <Yovanny Simeon - Last Filed: 10/11/19 09:09> <Salvador Faust - Last Filed: 10/11/19 11:22> - Past Medical History Allergies/Adverse Reactions: Allergies Allergy/AdvReac Type Severity Reaction Status Date / Time No Known Allergies Allergy Verified 10/11/19 06:40 Home Medications: Ambulatory Orders Risperidone [Risperdal -] 1 mg PO BID #60 tablet 09/24/19 Review of Systems - Review of Systems Constitutional: No: Chills, Fever Respiratory: No: Shortness of Breath Cardiac (ROS): Yes: Chest Pain ABD/GI: No: Constipated, Diarrhea, Nausea, Vomiting : No: Burning, Dysuria, Frequency, Flank Pain Musculoskeletal: No: Back Pain Neurological: No: Headache, Weakness, Ataxia <Yovanny Simeon - Last Filed: 10/11/19 09:09> *Physical Exam - Vital Signs Last Vital Signs Temp Pulse Resp BP Pulse Ox 97.1 F L 74 18 117/76 97 10/11/19 06:32 10/11/19 06:32 10/11/19 06:32 10/11/19 06:32 10/11/19 06:32 - Physical Exam General Appearance: Yes: Nourished, Appropriately Dressed. No: Apparent Distress HEENT: positive: EOMI Neck: positive: Supple Respiratory/Chest: positive: Lungs Clear, Normal Breath Sounds. negative: Rapid RR, Crackles, Rales, Rhonchi, Stridor, Wheezing Cardiovascular: positive: Regular Rhythm, Regular Rate, S1, S2. negative: Edema , JVD, Murmur Vascular Pulses: Dorsalis-Pedis (R): 3+, Doralis-Pedis (L): 3+ Gastrointestinal/Abdominal: positive: Flat, Soft. negative: Pulsatile Mass, Protuberent, Distended, Guarding, Rebound, Tenderness Musculoskeletal: negative: CVA Tenderness Extremity: positive: Normal Capillary Refill, Normal Inspection, Normal Range of Motion Integumentary: positive: Normal Color, Dry, Warm Neurologic: positive: Fully Oriented, Alert, Normal Mood/Affect <Yovanny Simeon - Last Filed: 10/11/19 09:09> - Vital Signs Last Vital Signs Temp Pulse Resp BP Pulse Ox 98.0 F 76 19 119/67 97 10/11/19 09:42 10/11/19 09:42 10/11/19 09:42 10/11/19 09:42 10/11/19 06:32 <Salvador Faust - Last Filed: 10/11/19 11:22> Heart Score/ECG Review - History History: Slightly suspicious - Electrocardiogram EKG: Normal - Age Age: 45-65 - Risk Factors Based on the list above the patient has:: No risk factors known - Troponin Troponin: </= normal limit - Score Heart Score - Total: 1 <Yovanny Simeon - Last Filed: 10/11/19 09:09> ED Treatment Course - LABORATORY CBC & Chemistry Diagram: 10/11/19 07:21 10/11/19 07:21 - RADIOLOGY Radiology Studies Ordered: Category Date Time Status CHEST PA & LAT [RAD] Stat Radiology 10/11/19 07:20 Ordered <Yovanny Simeon - Last Filed: 10/11/19 09:09> - LABORATORY CBC & Chemistry Diagram: 10/11/19 07:21 10/11/19 07:21 - ADDITIONAL ORDERS Additional order review: Laboratory Results 10/11/19 10/11/19 10/11/19 07:25 07:21 07:21 PT with INR 10.30 INR 0.87 PTT (Actin FS) 21.5 L Sodium 138 Potassium 5.0 Chloride 110 H Carbon Dioxide 25 Anion Gap 3 L BUN 28.5 H Creatinine 1.0 Est GFR (CKD-EPI)AfAm 103.42 Est GFR (CKD-EPI)NonAf 89.23 Random Glucose 92 Calcium 8.3 L Magnesium 2.6 H Total Bilirubin 0.4 AST 47 H ALT 28 Alkaline Phosphatase 77 Creatine Kinase 433 H Creatine Kinase Index 0.6 CK-MB (CK-2) 2.8 Troponin I < 0.02 B-Natriuretic Peptide 5.0 Total Protein 6.8 Albumin 3.3 L 10/11/19 07:21 RBC 3.77 L MCV 91.4 MCHC 33.8 RDW 14.5 MPV 9.3 Neutrophils % 45.1 D Lymphocytes % 39.5 D Monocytes % 11.6 H Eosinophils % 3.0 D Basophils % 0.8 <Salvador Faust - Last Filed: 10/11/19 11:22> Medical Decision Making - Medical Decision Making 10/11/19 09:12 49 yo male pmh schizophrenia and ETOH abuse presents from [facility] triage with CP. Pt well known to the ED for many prior complaints of CP all with normal work ups (EKG and Trops). CP is described as similar in quality and intensity as prior episodes, described as sharp, non exertional, no associated nausea or diaphoresis, no radiation of pain. Denies recent travel, new calf tenderness or leg swelling, denies F/C, SOB, abdominal pain, back pain, changes in bowel or bladder habits vitals WNL EKG NSR, rate of 74, no signs of acute ischemia Labs WNL including trop No significant cardiac risk factors, heart score 1 Pt safe for DC home with Cardiology f/u and PCP f/u <Yovanny Simeon - Last Filed: 10/11/19 09:09> Discharge - Discharge Information Problems reviewed: Yes - Admission No <Yovanny Simeon - Last Filed: 10/11/19 09:09> <Salvador Faust - Last Filed: 10/11/19 11:22> - Discharge Information Clinical Impression/Diagnosis: Chest pain, atypical Condition: Stable Disposition: HOME - Follow up/Referral Referrals: Artie Robles MD [Staff Physician] - - Patient Discharge Instructions Patient Printed Discharge Instructions: DI for Atypical Chest Pain, DI for Chest Pain Additional Instructions: Please see your primary doctor and call for an appointment to the Special Effects Person referred to you. Please continue taking your home dosed medications. Return to the ER for new or concerning symptoms. Thank you
[2019-10-11 08:14] LABS: BASO % 0.8 % (0-2.0); HEMATOCRIT 34.5 % (35.4-49); HEMOGLOBIN 11.7 GM/dL (11.7-16.9); LYMPH % 39.5 % (8-40); MCH 30.9 pg (25.7-33.7); MCHC 33.8 g/dl (32.0-35.9); MEAN CELL VOLUME 91.4 fl (80-96); MEAN PLT VOLUME 9.3 fl (7.5-11.1); MONO % 11.6 % (3.8-10.2); NEUT % 45.1 % (42.8-82.8); PLATELET COUNT 239 K/MM3 (134-434); RBC 3.77 M/mm3 (4.00-5.60); RDW 14.5 % (11.9-15.9); WHITE BLOOD COUNT 4.2 K/mm3 (4.0-10.0)
[2019-10-11 08:19] LABS: INR 0.87 (0.83-1.09); PROTHROMBIN TIME (PATIENT) 10.3 SEC (9.7-13.0)
[2019-10-11 08:22] LABS: ACTIVATED PTT 21.5 SECONDS (25.2-36.5)
--- NOTE | 2019-10-11 08:48 | PDOC ---
Attending Attestation - Resident Resident Name: Yovanny Simeon - ED Attending Attestation I have performed the following: I have examined & evaluated the patient, The case was reviewed & discussed with the resident, I agree w/resident's findings & plan, Exceptions are as noted - HPI HPI: 10/11/19 08:47 49 yo male pmh schizophrenia presents to the ED with CP. Pt well known to the ED for many prior complaints of CP all with normal work ups (EKG and Trops). - Physicial Exam PE: 10/11/19 08:47 Vitals: Triage Vital signs reviewed General Appearance: No acute distress, well nourished well developed, Head: Atraumatic, Cardiac: Regular rate and rhythym, no murmurs, no rubs, no gallops, Lungs: Clear to auscultation bilateral, good air movement bilaterally, Abdomen: Soft, non distended, normal bowel sounds, non tender to palpation Extremities: Full range of motion to all extremities, no cyanosis, clubbing, or edema Skin: Warm and dry, no rashes or lesions, no rash, no petechiae Psych: Normal mood, normal affect - Medical Decision Making 10/11/19 11:26 Heart score 2 no chest pain at this time nonischemic EKG troponin negative Patient feels better would like to proceed to [facility] for detox Findings, the need for follow-up and strict return instructions discussed with patient. Heart Score/ECG Review - ECG Impressions Comment:: 10/11/19 08:48 EKG performed at 610 demonstrates normal sinus rhythm no ST elevations no T wave inversions incomplete right bundle branch block Interpreted by me.
[2019-10-11 08:56] LABS: ALBUMIN 3.3 g/dl (3.4-5.0); ALK PHOS 77 U/L (45-117); ANION GAP 3 MMOL/L (8-16); BILIRUBIN,TOTAL 0.4 mg/dL (0.2-1); BLOOD UREA NITROGEN 28.5 mg/dL (7-18); CALCIUM 8.3 mg/dL (8.5-10.1); CHLORIDE 110 mmol/L (98-107); CO2 25 mmol/L (21-32); GLUCOSE,RANDOM 92 mg/dL (74-106); MAGNESIUM 2.6 mg/dL (1.8-2.4); SGOT/AST 47 U/L (15-37); SGPT/ALT 28 U/L (13-61); SODIUM 138 mmol/L (136-145); TOT PROT 6.8 g/dl (6.4-8.2)
--- NOTE | 2019-10-11 09:11 | EKG ---
Test Reason : Blood Pressure : / mmHG Vent. Rate : 074 BPM Atrial Rate : 074 BPM P-R Int : 170 ms QRS Dur : 094 ms QT Int : 400 ms P-R-T Axes : 072 042 029 degrees QTc Int : 444 ms NORMAL SINUS RHYTHM NORMAL ECG WHEN COMPARED WITH ECG OF 09-SEP-2019 02:17, FUSION COMPLEXES ARE NO LONGER PRESENT Confirmed by Tammy Garcia ([id number]) on 10/11/2019 9:10:53 AM Referred By: Confirmed By:Tammy Garcia
[2019-10-11 09:43] VITALS: BP 119/67; PULSE 76; TEMP 98
== END 2019-10-11 09:55 | disposition home or self-care (01) ==
LOC: JER 06:00
DX: R07.89 Other chest pain (principal); F10.10 Alcohol abuse, uncomplicated; F20.9 Schizophrenia, unspecified; F32.9 Major depressive disorder, single episode, unspecified
CPT/HCPCS: 36415; 71046-TC-FY; 80053; 82550; 82553; 83735; 83880; 84484; 85025; 85610; 85730; 93005; 93010; 99285-25

== ENCOUNTER 2019-10-15 22:07 | Emergency (ER) | payer OTHER ==
[2019-10-15 22:13] VITALS: BP 125/77; PULSE 81; TEMP 98.1; BMI 32.8
--- NOTE | 2019-10-15 22:50 | PDOC ---
History of Present Illness - General Chief Complaint: Chest Pain Stated Complaint: ABD PAIN History Source: Patient Exam Limitations: No Limitations - History of Present Illness Initial Comments: 10/16/19 00:16 49 yo M with a hx of depression and schizophrenia presents to the emergency department with cough, chest tightness, fevers, diffuse body aches, and generalized malaise. Per the patient, he states he had his symptoms start at 8 pm today. Per the patient, he visited [facility] twice in the past 48 hours for similar complaints and was discharged after work up was complete. Per the patient, [place] the streets and has unstable housing. Denies the following: chills, vomiting, ears/nose/throat pain, visual disturbance, hemoptysis, and dysuria. His chest pain began at 8pm located in the left chest wall with radiation to the left shoulder that is described as a tightness 10/10 without relieving factors and worsens with deep breaths and coughs. Allergies: NKDA Past History - Past Medical History Allergies/Adverse Reactions: Allergies Allergy/AdvReac Type Severity Reaction Status Date / Time No Known Allergies Allergy Verified 10/15/19 22:13 COPD: No - Psycho Social/Smoking Cessation Hx Smoking History: Current every day smoker Information on smoking cessation initiated: No Review of Systems - Review of Systems Able to Perform ROS?: Yes Is the patient limited [place] proficient: No Constitutional: Yes: Fever. No: Chills, Diaphoresis, Weakness HEENTM: No: Eye Pain, Ear Pain, Nose Pain, Throat Pain, Mouth Pain Respiratory: Yes: Cough. No: Shortness of Breath, Hemoptysis Cardiac (ROS): Yes: Chest Pain. No: Edema, Lightheadedness, Palpitations, Syncope, Chest Tightness ABD/GI: Yes: Nausea. No: Constipated, Diarrhea, Rectal Bleeding, Vomiting, Tarry Stools : No: Burning, Dysuria, Hematuria Musculoskeletal: Yes: Muscle Pain (myalgias ). No: Back Pain, Joint Pain, Neck Pain Integumentary: No: Bruising, Erythema, Rash Neurological: No: Headache, Numbness, Tingling, Tremors Psychiatric: No: Change in Appetite Endocrine: No: Unexplained Weight Loss Hematologic/Lymphatic: No: Anemia *Physical Exam - Vital Signs Last Vital Signs Temp Pulse Resp BP Pulse Ox 98.1 F 81 18 125/77 99 10/15/19 22:10 10/15/19 22:10 10/15/19 22:10 10/15/19 22:10 10/15/19 22:10 - Physical Exam General Appearance: Yes: Nourished, Appropriately Dressed. No: Apparent Distress, Intoxicated HEENT: positive: EOMI, LEOBARD[place], Normal Voice, Hearing Grossly Normal. negative: Pale Conjunctivae, Scleral Icterus (R), Scleral Icterus (L), Muffled/Hoarse voice, Excessive drooling Neck: positive: Trachea midline, Supple. negative: Tender, Lymphadenopathy (R) , Lymphadenopathy (L), Tender lateral, Tender midline Respiratory/Chest: positive: Lungs Clear, Normal Breath Sounds. negative: Chest Tender, Respiratory Distress, Accessory Muscle Use Cardiovascular: positive: Regular Rhythm, Regular Rate, S1, S2. negative: Systolic Murmur Gastrointestinal/Abdominal: positive: Normal Bowel Sounds, Flat, Soft, Other ( protuberent). negative: Tender, Distended, Guarding, Rebound Lymphatic: negative: Adenopathy Musculoskeletal: positive: Normal Inspection. negative: CVA Tenderness, Vertebral Tenderness Extremity: positive: Normal Capillary Refill, Normal Range of Motion. negative : Normal Inspection (non pitting edema mild bilaterally without erythema), Tender Integumentary: positive: Normal Color, Dry, Warm. 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 elevations or depressions. TWI in III. ED Treatment Course - LABORATORY CBC & Chemistry Diagram: 10/16/19 00:30 10/16/19 00:30 Medical Decision Making - Medical Decision Making 49 yo M with a hx of depression and schizophrenia presents to the emergency department with cough, chest tightness, fevers, diffuse body aches, and generalized malaise. Initial vitals; Initial Vital Signs Temp Pulse Resp BP Pulse Ox 98.1 F 81 18 125/77 99 10/15/19 22:10 10/15/19 22:10 10/15/19 22:10 10/15/19 22:10 10/15/19 22:10 Work up: Patient presents to the emergency department with multitude of symptoms. Namely , the patient has coughs, body myalgias, chest tightness that worsens with coughs and deep inspiration, and nausea. The patient, based on symptoms, likely is having viral symptoms vs influenza. In addition, the patient has chest pain that needs to have ACS ruled out as well as PNA. The patient will receive labs and cxr to rule out the above. The patient had pending labs at the time of sign out. Patient was signed out to Dr. Simeon. Discharge - Discharge Information Problems reviewed: Yes Clinical Impression/Diagnosis: URI (upper respiratory infection) - Follow up/Referral - Patient Discharge Instructions - Post Discharge Activity
[2019-10-15] MEDS ORDERED: ACETAMINOPHEN 1000 MG/100 ML VIAL (NON FORMULARY) IVPB ONE (23:08)
[2019-10-15] MEDS ORDERED: SODIUM CHLORIDE 1,000 ML IV STA (23:09)
[2019-10-15] MEDS ORDERED: ONDANSETRON 4 MG/2 ML VIAL IVPUSH ONE (23:11)
[2019-10-15] MEDS ORDERED: MAG HYDROX/AL HYDROX/SIMETH 30 ML UNIT-DOSE CUP PO ONE (23:24)
[2019-10-15] MEDS ORDERED: FAMOTIDINE 20 MG/50 ML IVPB 20 MG/50 ML MG IVPB ONE (23:24)
[2019-10-15] MEDS ORDERED: LIDOCAINE VISCOUS 2% ORAL/TOP 20 ML UNIT-DOSE CUP MM ONE (23:24)
[2019-10-15] MEDS ORDERED: KETOROLAC TROMETHAMINE 15 MG/ML VIAL IVPUSH ONE (23:31)
[2019-10-15] MEDS ORDERED: SODIUM CHLORIDE 500 ML IV STA (23:31)
[2019-10-16] MEDS ORDERED: ONDANSETRON 4 MG/2 ML VIAL ONE (00:11)
[2019-10-16] MEDS ORDERED: FAMOTIDINE 20 MG/50 ML IVPB 20 MG/50 ML MG IVPB ONE (00:12)
[2019-10-16] MEDS ORDERED: MAG HYDROX/AL HYDROX/SIMETH 30 ML UNIT-DOSE CUP ONE (00:12)
[2019-10-16] MEDS ORDERED: LIDOCAINE VISCOUS 2% ORAL/TOP 20 ML UNIT-DOSE CUP ONE (00:13)
[2019-10-16] MEDS ORDERED: KETOROLAC TROMETHAMINE 15 MG/ML VIAL ONE (00:14)
[2019-10-16 00:50] LABS: EOS % 3.2 % (0-4.5); HEMATOCRIT 34.9 % (35.4-49); LYMPH % 38.1 % (8-40); MCH 31.6 pg (25.7-33.7); MCHC 34.4 g/dl (32.0-35.9); MEAN CELL VOLUME 91.9 fl (80-96); MEAN PLT VOLUME 9.1 fl (7.5-11.1); MONO % 8.3 % (3.8-10.2); NEUT % 49.4 % (42.8-82.8); PLATELET COUNT 189 K/MM3 (134-434); RDW 14.5 % (11.9-15.9); WHITE BLOOD COUNT 5.7 K/mm3 (4.0-10.0)
[2019-10-16 01:04] LABS: INR 0.96 (0.83-1.09); PROTHROMBIN TIME (PATIENT) 11.3 SEC (9.7-13.0)
[2019-10-16 01:14] LABS: ALBUMIN 3.2 g/dl (3.4-5.0); BILIRUBIN,TOTAL 0.3 mg/dL (0.2-1); BLOOD UREA NITROGEN 24.6 mg/dL (7-18); CALCIUM 7.8 mg/dL (8.5-10.1); POTASSIUM 3.9 mmol/L (3.5-5.1); TOT PROT 6.5 g/dl (6.4-8.2)
--- NOTE | 2019-10-16 01:24 | PDOC ---
Documentation entered by Tatiana Swartz SCRIBE, acting as scribe for Joe Rebolledo DO. Joe Rebolledo DO: This documentation has been prepared by the Sheridan franco Adrianna, SCRIBE, under my direction and personally reviewed by me in its entirety. I confirm that the documentation accurately reflects all work, treatment, procedures, and medical decision making performed by me. Attending Attestation - Resident Resident Name: Brenden Kaplan - [facility] HPI: The patient is a 49 year old male, with history of bipolar depression and schizophrenia, coming in with generalized fatigue, body aches, cough, chest pain , chills, subjective fevers, and nausea. Patient notes for the past 2 days he has had a cough, with generalized weakness and diffuse body aches. He reports mid-sternal chest pain that is worse with coughing. Patient is still a smoker, denies drug abuse or any drug use tonight. Denies shortness of breath, vomit, or abdominal pain. - Physicial Exam PE: GENERAL: Appears viral. Awake and alert. No acute distress. HEENT: Normocephalic, atraumatic. PERRLA, EOMI. No conjunctival pallor. Sclera are non-icteric. Moist mucous membranes. Oropharynx is clear. NECK: Supple. Full ROM. No JVD. Carotid pulses 2+ and symmetric, without bruits. No thyromegaly. No lymphadenopathy. CARDIOVASCULAR: +murmur. Regular rate and rhythm. No rubs, or gallops. Distal pulses are 2+ and symmetric. PULMONARY: No evidence of respiratory distress. Lungs clear to auscultation bilaterally. No wheezing, rales or rhonchi. ABDOMINAL: Soft. Non-tender. Non-distended. No rebound or guarding. No organomegaly. Normoactive bowel sounds. MUSCULOSKELETAL: Normal range of motion at all joints. No bony deformities or tenderness. No CVA tenderness. EXTREMITIES: Bilateral 2+ lower extremity edema. No cyanosis. No clubbing. No calf tenderness. SKIN: Warm and dry. Normal capillary refill. No rashes. No jaundice. NEUROLOGICAL: Alert, awake, appropriate. Normal speech. PSYCHIATRIC: Cooperative. Good eye contact. Appropriate mood and affect. - Medical Decision Making Assessment and Plan: 49 year old male here with cough and upper respiratory infection type symptoms with associated pleuritic type chest pain. Rule out pneumonia versus bronchitis versus influenza versus atypical ACS. Plan for cardiac enzymes x1, chest X-Ray, ECG, IV fluids, toradol, reassess. Will likely treat for bronchitis and give azithromycin. Reassessment: ECG is normal, patient appears well. Labs are pending. Will reassess after flu swab Heart Score/ECG Review - ECG Impressions Comment:: ECG is normal sinus rhythm at 80. Normal axis and intervals. Benign early repol. No acute ischemia. Performed at 00:50.
--- NOTE | 2019-10-16 01:57 | PDOC ---
*Physical Exam - Vital Signs Last Vital Signs Temp Pulse Resp BP Pulse Ox 98.1 F 81 18 125/77 99 10/15/19 22:10 10/15/19 22:10 10/15/19 22:10 10/15/19 22:10 10/15/19 22:10 ED Treatment Course - LABORATORY CBC & Chemistry Diagram: 10/16/19 00:30 10/16/19 00:30 - ADDITIONAL ORDERS Additional order review: Laboratory Results 10/16/19 10/16/19 10/16/19 00:30 00:30 00:30 PT with INR 11.30 INR 0.96 Sodium 139 Potassium 3.9 Chloride 109 H Carbon Dioxide 25 Anion Gap 6 L BUN 24.6 H Creatinine 1.0 Est GFR (CKD-EPI)AfAm 103.42 Est GFR (CKD-EPI)NonAf 89.23 Random Glucose 122 H Lactic Acid Calcium 7.8 L Total Bilirubin 0.3 AST 24 ALT 27 Alkaline Phosphatase 95 Creatine Kinase 340 H Creatine Kinase Index 0.4 CK-MB (CK-2) 1.47 Troponin I < 0.02 Total Protein 6.5 Albumin 3.2 L Lipase 111 10/16/19 00:30 PT with INR INR Sodium Potassium Chloride Carbon Dioxide Anion Gap BUN Creatinine Est GFR (CKD-EPI)AfAm Est GFR (CKD-EPI)NonAf Random Glucose Lactic Acid 1.4 Calcium Total Bilirubin AST ALT Alkaline Phosphatase Creatine Kinase Creatine Kinase Index CK-MB (CK-2) Troponin I Total Protein Albumin Lipase 10/16/19 00:30 RBC 3.80 L MCV 91.9 MCHC 34.4 RDW 14.5 MPV 9.1 Neutrophils % 49.4 Lymphocytes % 38.1 Monocytes % 8.3 Eosinophils % 3.2 Basophils % 1.0 - Medications Given in the ED: ED Medications Discontinued Medications Generic Name Dose Route Start Last Admin Trade Name Freq PRN Reason Stop Dose Admin Al Hydroxide/Mg Hydroxide 30 ml 10/15/19 23:24 10/16/19 00:35 Mylanta Oral Suspension - PO 10/15/19 23:25 30 ml ONCE ONE Administration Famotidine/Sodium Chloride 20 mg in 50 mls @ 100 mls/hr 10/15/19 23:24 00:35 Pepcid 20 Mg Premixed Ivpb - IVPB 10/15/19 23:53 100 mls/hr ONCE ONE Administration Sodium Chloride 500 mls @ 500 mls/hr 10/15/19 23:31 10/16/19 00:35 Normal Saline - IV 10/16/19 00:30 500 mls/hr ASDIR STA Administration Ketorolac Tromethamine 15 mg 10/15/19 23:31 10/16/19 00:35 Toradol Injection - IVPUSH 10/15/19 23:32 15 mg ONCE ONE Administration Lidocaine HCl 20 ml 10/15/19 23:24 10/16/19 00:35 Xylocaine 2% Viscous Oral - MM 10/15/19 23:25 20 ml ONCE ONE Administration Ondansetron HCl 4 mg 10/15/19 23:11 10/16/19 00:35 Zofran Injection IVPUSH 10/15/19 23:12 4 mg ONCE ONE Administration Medical Decision Making - Medical Decision Making 10/16/19 01:51 S/O from Doctor Rosaura 49b yo male without sig cardiac risk factors presents to the ED for cough, chest tightness, fevers, diffuse body aches, and generalized malaise. Labs WNL including trops CXR no acute pathology EKG NSR without acute signs of ischemia, no change when comparing past EKG Pt likely has viral bronchitis, pt is homeless, will give Azithro and strict return precautions with PCP f/u Pt understands and agrees with plan Discharge - Discharge Information Problems reviewed: Yes Clinical Impression/Diagnosis: URI (upper respiratory infection), Viral bronchitis, Atypical chest pain Condition: Stable Disposition: HOME - Admission No - Additional Discharge Information Prescriptions: Azithromycin [Zithromax 250mg Tablets -] 250 mg PO DAILY #5 tablet - Follow up/Referral - Patient Discharge Instructions Patient Printed Discharge Instructions: Acute Bronchitis (Alternative Therapy) , DI for Atypical Chest Pain, DI for Chest Pain Additional Instructions: Please see your Primary Doctor within the next 48 hours. Take the medication sent to your pharmacy as prescribed. Return to the ER for new or concerning symptoms. Thank you - Post Discharge Activity
--- NOTE | 2019-10-16 13:24 | EKG ---
Test Reason : Blood Pressure : / mmHG Vent. Rate : 080 BPM Atrial Rate : 080 BPM P-R Int : 162 ms QRS Dur : 092 ms QT Int : 374 ms P-R-T Axes : 052 049 031 degrees QTc Int : 431 ms NORMAL SINUS RHYTHM NONSPECIFIC ST ABNORMALITY WHEN COMPARED WITH ECG OF 15-OCT-2019 22:21, NO SIGNIFICANT CHANGE WAS FOUND Confirmed by SANJAY MARCANO MD ([id number]) on 10/16/2019 1:24:08 PM Referred By: Confirmed By:SANJAY MARCANO MD
--- NOTE | 2019-10-19 10:35 | EKG ---
Test Reason : Blood Pressure : / mmHG Vent. Rate : 078 BPM Atrial Rate : 078 BPM P-R Int : 170 ms QRS Dur : 094 ms QT Int : 386 ms P-R-T Axes : 067 045 032 degrees QTc Int : 440 ms NORMAL SINUS RHYTHM NORMAL ECG NO PREVIOUS ECGS AVAILABLE Confirmed by Juvencio Chávez MD ([id number]) on 10/19/2019 10:34:45 AM Referred By: Confirmed By:Juvencio Chávez MD
== END 2019-10-16 02:51 | disposition home or self-care (01) ==
LOC: JER 22:07 → MERGE 22:07 → JER 10-16 02:51
PROC: 3E033GC Introduction of Other Therapeutic Substance into Peripheral Vein, Percutaneous Approach (ICD-10-PCS; principal; 2019-10-15)
PROC: 3E0333Z Introduction of Anti-inflammatory into Peripheral Vein, Percutaneous Approach (ICD-10-PCS; 2019-10-15)
DX: J06.9 Acute upper respiratory infection, unspecified (principal); F20.9 Schizophrenia, unspecified; F32.9 Major depressive disorder, single episode, unspecified
CPT/HCPCS: 36415; 71046-TC-FY; 80053; 82550; 82553; 83605; 83690; 84484; 85025; 85610; 93005; 93010; 99285-25

== ENCOUNTER 2019-10-25 10:44 | Inpatient (IN) | payer OTHER ==
--- NOTE | 2019-10-25 11:42 | BHS.RME ---
Substance Use & Tx History - Substance Use History Alcohol Substance amount: one pint pint Vodka, one 6 pack 12 ounce beer Frequency of use: Daily Date of Last Use: 10/24/19 PCP Substance amount: 2-3 blunts Frequency of use: Daily Substance route: Smoking Date of Last Use: 10/24/19 Cannabis Substance amount: nando bag Frequency of use: Daily Substance route: Smoking Date of Last Use: 10/24/19 - Last Treatment Treatment type: Substance Use Disorder ([facility]) Where was last treatment: Detox Physical/Psych/Mental Status - Behavior General Behavior: Decreased activity - Cooperativeness Cooperativeness: Cooperative - Thinking Thought Processes: Tight Thought content: Future oriented - Physical Health Problems Is patient presently having any pain?: Yes (chest pain since yesterday, intermit) Does patient presently have any injuries (include location): No Does patient currently have a fever: No CIWA Nausea/Vomitin-No Nausea/No Vomiting Muscle Tremors: None Anxiety: 0-No Anxiety, at Ease Agitation: 0-Normal Activity Paroxysmal Sweats: No Perspiration Orientation: 3-Disoriented Date>2 days Tacttile Disturbances: 2-Mild Itch/Numbness/Burn Auditory Disturbances: 0-None Visual Disturbances: 0-None Headache: 0-None Present CIWA-Ar Total Score: 5
[2019-10-25 11:52] VITALS: BMI 34.2
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
[2019-10-25] MEDS ORDERED: MAGNESIUM HYDROX 2400MG/30ML ORAL SUSPENSION 30 ML CUP PO PRN (12:14)
[2019-10-25] MEDS ORDERED: P-EPHED 60MG/TRIPROLIDI 2.5MG TABLET PO PRN (12:14)
[2019-10-25] MEDS ORDERED: NICOTINE POLACRILEX 2 MG GUM BUC PRN (12:14)
[2019-10-25] MEDS ORDERED: MAGNESIUM CITRATE 300 ML BOTTLE PO PRN (12:14)
[2019-10-25] MEDS ORDERED: ACETAMINOPHEN 325 MG TABLET (FP) PO PRN (12:14)
[2019-10-25] MEDS ORDERED: MAG HYDROX/AL HYDROX/SIMETH 30 ML UNIT-DOSE CUP PO PRN (12:14)
[2019-10-25] MEDS ORDERED: guaiFENesin 200 MG/10 ML 10 ML UNIT-DOSE CUPS PO PRN (12:14)
[2019-10-25] MEDS ORDERED: IBUPROFEN 400 MG TABLET (FP) PO PRN (12:14)
[2019-10-25] MEDS ORDERED: LOPERAMIDE HCL 2 MG CAPSULE PO PRN (12:14)
[2019-10-25] MEDS: PRENATAL VITAMINS W/ FOLIC ACID TABLET (FP) PO SCH (13:43)
[2019-10-25] MEDS: NICOTINE 21 MG/24 HOURS TOPICAL PATCH TD SCH (13:43)
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
[2019-10-25] MEDS: hydrOXYzine PAMOATE 25 MG CAPSULE (FP) PO SCH ×3 (14:21→21:24)
[2019-10-25 18:51] LABS: HEMATOCRIT 36.5 % (35.4-49); HEMOGLOBIN 12.2 GM/dL (11.7-16.9); MCH 31.1 pg (25.7-33.7); MCHC 33.5 g/dl (32.0-35.9); MEAN CELL VOLUME 92.8 fl (80-96); MEAN PLT VOLUME 9.8 fl (7.5-11.1); PLATELET COUNT 191 K/MM3 (134-434); RBC 3.93 M/mm3 (4.00-5.60); RDW 14.9 % (11.9-15.9); WHITE BLOOD COUNT 5.5 K/mm3 (4.0-10.0)
[2019-10-25 18:58] LABS: ALBUMIN 3.7 g/dl (3.4-5.0); BILIRUBIN,TOTAL 0.4 mg/dL (0.2-1); BLOOD UREA NITROGEN 22.3 mg/dL (7-18); CALCIUM 8.1 mg/dL (8.5-10.1); CREATININE 1.1 mg/dL (0.55-1.3); POTASSIUM 3.6 mmol/L (3.5-5.1); TOT PROT 7.1 g/dl (6.4-8.2)
[2019-10-25] MEDS: traZODone HCL 100 MG TABLET (FP) PO SCH (21:23)
[2019-10-25] MEDS: MELATONIN 5 MG TABLETS PO SCH (21:24)
[2019-10-25] MEDS: THIAMINE HCL 100 MG TABLET (FP) PO SCH (21:24)
[2019-10-25] MEDS: risperiDONE 1 MG TABLET PO SCH (21:24)
[2019-10-26] MEDS: hydrOXYzine PAMOATE 25 MG CAPSULE (FP) PO SCH ×3 (06:42→14:53)
[2019-10-26] MEDS: risperiDONE 1 MG TABLET PO SCH ×2 (10:14→22:28)
[2019-10-26] MEDS: PRENATAL VITAMINS W/ FOLIC ACID TABLET (FP) PO SCH (10:14)
[2019-10-26] MEDS: NICOTINE 21 MG/24 HOURS TOPICAL PATCH TD SCH (10:14)
[2019-10-26] MEDS ORDERED: hydrOXYzine PAMOATE 25 MG CAPSULE (FP) PO PRN (15:41)
[2019-10-26] MEDS: traZODone HCL 100 MG TABLET (FP) PO SCH (22:27)
[2019-10-26] MEDS: MELATONIN 5 MG TABLETS PO SCH (22:28)
[2019-10-26] MEDS: THIAMINE HCL 100 MG TABLET (FP) PO SCH (22:28)
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
[2019-10-27] MEDS: PRENATAL VITAMINS W/ FOLIC ACID TABLET (FP) PO SCH (10:17)
[2019-10-27] MEDS: risperiDONE 1 MG TABLET PO SCH ×2 (10:17→21:24)
[2019-10-27] MEDS: NICOTINE 21 MG/24 HOURS TOPICAL PATCH TD SCH (10:18)
[2019-10-27] MEDS: THIAMINE HCL 100 MG TABLET (FP) PO SCH (21:24)
[2019-10-27] MEDS: traZODone HCL 100 MG TABLET (FP) PO SCH (21:24)
[2019-10-27] MEDS: MELATONIN 5 MG TABLETS PO SCH (21:24)
[2019-10-28 07:24] VITALS: BP 119/88; PULSE 76; TEMP 97.4
[2019-10-28] MEDS: PRENATAL VITAMINS W/ FOLIC ACID TABLET (FP) PO SCH (10:08)
[2019-10-28] MEDS: risperiDONE 1 MG TABLET PO SCH (10:08)
[2019-10-28] MEDS: NICOTINE 21 MG/24 HOURS TOPICAL PATCH TD SCH (10:09)
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
== END 2019-10-28 14:10 | disposition home or self-care (01) | DRG 895 ==
LOC: YASAS 10:44 → Y5N 12:12
PROVIDERS: ADMIT Allergy & Immunology; ATTEND Allergy & Immunology
PROC: HZ42ZZZ Group Counseling for Substance Abuse Treatment, Cognitive-Behavioral (ICD-10-PCS; principal; 2019-10-25)
DX: F10.20 Alcohol dependence, uncomplicated (principal); F16.20 Hallucinogen dependence, uncomplicated; F12.20 Cannabis dependence, uncomplicated; F17.210 Nicotine dependence, cigarettes, uncomplicated; F20.9 Schizophrenia, unspecified; F19.24 Other psychoactive substance dependence with psychoactive substance-induced mood disorder; D17.21 Benign lipomatous neoplasm of skin and subcutaneous tissue of right arm; H50.52 Exophoria; Z94.5 Skin transplant status; Z56.0 Unemployment, unspecified; Z59.0 Homelessness; Z91.19 Patient's noncompliance with other medical treatment and regimen
CPT/HCPCS: 36415; 80053; 85027; 86593; J2794

== ENCOUNTER 2020-02-28 08:58 | Inpatient (IN) | payer OTHER ==
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
[2020-02-28] MEDS ORDERED: MAGNESIUM HYDROX 2400MG/30ML ORAL SUSPENSION 30 ML CUP PO PRN (10:42)
[2020-02-28] MEDS ORDERED: LOPERAMIDE HCL 2 MG CAPSULE PO PRN (10:42)
[2020-02-28] MEDS ORDERED: MAGNESIUM CITRATE 300 ML BOTTLE PO PRN (10:42)
[2020-02-28] MEDS ORDERED: MAG HYDROX/AL HYDROX/SIMETH 30 ML UNIT-DOSE CUP PO PRN (10:42)
[2020-02-28] MEDS ORDERED: NICOTINE POLACRILEX 2 MG GUM BC PRN (10:42)
[2020-02-28] MEDS ORDERED: guaiFENesin 200 MG/10 ML 10 ML UNIT-DOSE CUPS PO PRN (10:42)
[2020-02-28] MEDS ORDERED: P-EPHED 60MG/TRIPROLIDI 2.5MG TABLET PO PRN (10:42)
[2020-02-28 11:08] VITALS: BMI 36.3
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
[2020-02-28] MEDS: risperiDONE 1 MG TABLET PO SCH ×2 (13:55→22:28)
[2020-02-28] MEDS: hydrOXYzine PAMOATE 25 MG CAPSULE (FP) PO SCH ×3 (14:53→22:28)
[2020-02-28] MEDS: PRENATAL VITAMINS W/ FOLIC ACID TABLET (FP) PO SCH (14:53)
[2020-02-28] MEDS: NICOTINE 7 MG/24 HOURS TOPICAL PATCH TD SCH (14:54)
[2020-02-28 16:13] LABS: HEMATOCRIT 39.5 % (35.4-49); HEMOGLOBIN 13.2 GM/dL (11.7-16.9); MCH 30.7 pg (25.7-33.7); MCHC 33.5 g/dl (32.0-35.9); MEAN CELL VOLUME 91.6 fl (80-96); PLATELET COUNT 204 K/MM3 (134-434); RBC 4.31 M/mm3 (4.00-5.60); RDW 14.1 % (11.9-15.9); WHITE BLOOD COUNT 5.9 K/mm3 (4.0-10.0)
[2020-02-28 16:30] LABS: ALBUMIN 3.9 g/dl (3.4-5.0); BILIRUBIN,TOTAL 0.8 mg/dL (0.2-1); BLOOD UREA NITROGEN 16.2 mg/dL (7-18); CALCIUM 8.3 mg/dL (8.5-10.1); CREATININE 1.2 mg/dL (0.55-1.3); POTASSIUM 3.4 mmol/L (3.5-5.1); TOT PROT 7.6 g/dl (6.4-8.2)
[2020-02-28 17:58] LABS: SICKLE CELL SCREEN NEGATIVE (NEGATIVE)
[2020-02-28] MEDS ORDERED: PT OWN MED DRAWER 7, Y5N ONE (18:45)
[2020-02-28] MEDS: THIAMINE HCL 100 MG TABLET (FP) PO SCH (22:28)
[2020-02-28] MEDS: MELATONIN 5 MG TABLETS PO SCH (22:29)
[2020-02-28] MEDS: traZODone HCL 100 MG TABLET (FP) PO SCH (22:33)
[2020-02-29] MEDS: hydrOXYzine PAMOATE 25 MG CAPSULE (FP) PO SCH ×5 (07:00→22:11)
[2020-02-29] MEDS: risperiDONE 1 MG TABLET PO SCH ×2 (10:50→22:11)
[2020-02-29] MEDS: NICOTINE 7 MG/24 HOURS TOPICAL PATCH TD SCH (10:50)
[2020-02-29] MEDS: PRENATAL VITAMINS W/ FOLIC ACID TABLET (FP) PO SCH (10:50)
[2020-02-29 15:05] LABS: URINE APPEARANCE CLEAR; URINE BILIRUBIN NEGATIVE (NEGATIVE); URINE COLOR YELLOW; URINE GLUCOSE (UA) NEGATIVE (NEGATIVE); URINE KETONE NEGATIVE (NEGATIVE); URINE LEUK ESTERASE NEGATIVE (NEGATIVE); URINE NITRITE NEGATIVE (NEGATIVE); URINE PROTEIN NEGATIVE (NEGATIVE)
[2020-02-29] MEDS: THIAMINE HCL 100 MG TABLET (FP) PO SCH (22:11)
[2020-02-29] MEDS: MELATONIN 5 MG TABLETS PO SCH (22:11)
[2020-02-29] MEDS: traZODone HCL 100 MG TABLET (FP) PO SCH (22:11)
[2020-03-01] MEDS: hydrOXYzine PAMOATE 25 MG CAPSULE (FP) PO SCH ×5 (06:17→21:48)
[2020-03-01] MEDS ORDERED: PT OWN MED DRAWER 7, Y5N ONE (09:03)
[2020-03-01] MEDS: risperiDONE 1 MG TABLET PO SCH ×2 (10:44→21:47)
[2020-03-01] MEDS: NICOTINE 7 MG/24 HOURS TOPICAL PATCH TD SCH (10:45)
[2020-03-01] MEDS: PRENATAL VITAMINS W/ FOLIC ACID TABLET (FP) PO SCH (10:45)
[2020-03-01] MEDS: traZODone HCL 100 MG TABLET (FP) PO SCH (21:47)
[2020-03-01] MEDS: MELATONIN 5 MG TABLETS PO SCH (21:47)
[2020-03-01] MEDS: THIAMINE HCL 100 MG TABLET (FP) PO SCH (21:47)
[2020-03-02] MEDS: hydrOXYzine PAMOATE 25 MG CAPSULE (FP) PO SCH ×3 (06:10→13:29)
[2020-03-02] MEDS: NICOTINE 7 MG/24 HOURS TOPICAL PATCH TD SCH (10:41)
[2020-03-02] MEDS: risperiDONE 1 MG TABLET PO SCH ×3 (10:43→22:03)
[2020-03-02] MEDS: PRENATAL VITAMINS W/ FOLIC ACID TABLET (FP) PO SCH (10:43)
--- NOTE | 2020-03-02 14:30 | CONSULT ---
[facility] Psychiatric Consult - Data Date of interview: 03/02/20 Admission source: Marlene
--- NOTE | 2020-03-02 14:45 | PN ---
Psychiatric Progress Note Vital Signs: Vital Signs Period Temp Pulse Resp BP Sys/Ortiz Pulse Ox Last 24 Hr 98.0 F-98.2 F 75 18 134/94 95-97 Date of Session: 03/02/20 Chief Complaint:: "I do not want to be discharged to the street." HPI: Patient admitted to [facility] for alcohol, cocaine, and phencyclidine dependence. ROS: Patient laying in bed. Alert + oriented X3. Current Medications: Active Medications Generic Name Dose Route Start Last Admin Trade Name Freq PRN Reason Stop Dose Admin Acetaminophen 650 mg 02/28/20 10:42 Tylenol - PO Q4H PRN FEVER Al Hydroxide/Mg Hydroxide 30 ml 02/28/20 10:42 Mylanta Oral Suspension - PO Q6H PRN DYSPEPSIA Guaifenesin 10 ml 02/28/20 10:42 Robitussin - PO Q6H PRN COUGH Hydroxyzine Pamoate 25 mg 03/02/20 13:52 Vistaril - PO Q4HWA PRN ANXIETY Ibuprofen 400 mg 02/28/20 10:42 Motrin - PO Q6H PRN Pain level 4-6 Loperamide HCl 4 mg 02/28/20 10:42 Imodium - PO Q6H PRN DIARRHEA Magnesium Citrate 300 ml 02/28/20 10:42 Citroma - PO Q48H PRN CONSTIPATION Magnesium Hydroxide 30 ml 02/28/20 10:42 Milk Of Magnesia - PO DAILY PRN CONSTIPATION Melatonin 5 mg 02/28/20 22:00 03/01/20 21:47 Melatonin PO Not Given HS MICHAEL Nicotine 7 mg 02/28/20 11:00 03/02/20 10:41 Nicoderm Patch - TD 7 mg DAILY MICHAEL Administration Nicotine Polacrilex 2 mg 02/28/20 10:42 Nicorette Gum - BC Q2H PRN NICOTINE REPLACEMENT RX Multivit/Folic Acid/Iron 1 tab 02/28/20 10:45 03/02/20 10:43 Vitamins ([facility]) - PO 1 tab DAILY MICHAEL Administration Pseudoephedrine/Triprolidine 1 combo 02/28/20 10:42 Actifed - PO TID PRN NASAL CONGESTION Risperidone 1 mg 02/28/20 13:30 03/02/20 10:43 Risperdal - PO 1 mg BID MICHAEL Administration Thiamine HCl 100 mg 02/28/20 22:00 03/01/20 21:47 Vitamin B1 - PO Not Given HS MICHAEL Trazodone HCl 100 mg 02/28/20 22:00 03/01/20 21:47 Desyrel - PO Not Given HS MICHAEL Medication(s) Change(s): No. Current Side Effect: No Lab tests ordered: No Lab tests reviewed: Yes Provider note:: Chart reviewed. Dr. Garrett's note read and appreciated. Patient requested to speak to psychiatry due to concern for discharge planning. Patient stated that he is concerned about being discharged to the "streets." Patient informed to address his discharge concerns with his counselor/ home health care social worker. Overall, Mr. De La Rosa reports stable mood and is accepting risperdal 1mg BID + Trazodone 100mg as prescribed. Total face to face time:: 15 Mental Status Exam - Mental Status Exam Alert and Oriented to: Time, Place, Person Cognitive Function: Good Patient Appearance: Well Groomed Mood: Hopeful Affect: Appropriate Patient Behavior: Fatigued, Cooperative Speech Pattern: Clear Voice Loudness: Mildly Soft/Quiet Thought Process: Goal Oriented Thought Disorder: Not Present Hallucinations: Denies Suicidal Ideation: Denies Homicidal Ideation: Denies Insight/Judgement: Poor Sleep: Fair Appetite: Fair Muscle strength/Tone: Normal Gait/Station: Other (Gait not observed.) Psychiatric Treatment Plan - Problem List (1) Alcohol dependence Current Visit: Yes Qualifiers: Substance use status: uncomplicated Qualified Code(s): F10.20 - Alcohol dependence, uncomplicated (2) Cocaine dependence Current Visit: Yes (3) Schizophrenia Current Visit: Yes Qualifiers: Schizophrenia type: unspecified Qualified Code(s): F20.9 - Schizophrenia, unspecified
[2020-03-02] MEDS: traZODone HCL 100 MG TABLET (FP) PO SCH ×2 (21:56→22:07)
[2020-03-02] MEDS: THIAMINE HCL 100 MG TABLET (FP) PO SCH (21:57)
[2020-03-02] MEDS: MELATONIN 5 MG TABLETS PO SCH ×2 (21:57→22:08)
[2020-03-03] MEDS: risperiDONE 1 MG TABLET PO SCH ×2 (10:36→21:13)
[2020-03-03] MEDS: NICOTINE 7 MG/24 HOURS TOPICAL PATCH TD SCH (10:36)
[2020-03-03] MEDS: PRENATAL VITAMINS W/ FOLIC ACID TABLET (FP) PO SCH (10:36)
[2020-03-03] MEDS: THIAMINE HCL 100 MG TABLET (FP) PO SCH (21:13)
[2020-03-03] MEDS: MELATONIN 5 MG TABLETS PO SCH (21:13)
[2020-03-03] MEDS: traZODone HCL 100 MG TABLET (FP) PO SCH (21:13)
[2020-03-03] MEDS: IBUPROFEN 400 MG TABLET (FP) PO PRN (21:14)
[2020-03-04] MEDS: risperiDONE 1 MG TABLET PO SCH ×2 (10:05→21:28)
[2020-03-04] MEDS: NICOTINE 7 MG/24 HOURS TOPICAL PATCH TD SCH (10:05)
[2020-03-04] MEDS: PRENATAL VITAMINS W/ FOLIC ACID TABLET (FP) PO SCH (10:05)
[2020-03-04] MEDS: IBUPROFEN 400 MG TABLET (FP) PO PRN ×2 (10:06→21:29)
[2020-03-04] MEDS: traZODone HCL 100 MG TABLET (FP) PO SCH (21:28)
[2020-03-04] MEDS: MELATONIN 5 MG TABLETS PO SCH (21:28)
[2020-03-04] MEDS: THIAMINE HCL 100 MG TABLET (FP) PO SCH (21:28)
[2020-03-05] MEDS: NICOTINE 7 MG/24 HOURS TOPICAL PATCH TD SCH (09:54)
[2020-03-05] MEDS: PRENATAL VITAMINS W/ FOLIC ACID TABLET (FP) PO SCH (09:54)
[2020-03-05] MEDS: risperiDONE 1 MG TABLET PO SCH ×2 (09:54→21:33)
[2020-03-05] MEDS: hydrOXYzine PAMOATE 25 MG CAPSULE (FP) PO PRN ×2 (14:22→21:33)
[2020-03-05] MEDS: IBUPROFEN 400 MG TABLET (FP) PO PRN ×2 (14:22→21:33)
[2020-03-05] MEDS: traZODone HCL 100 MG TABLET (FP) PO SCH (21:33)
[2020-03-05] MEDS: MELATONIN 5 MG TABLETS PO SCH (21:33)
[2020-03-05] MEDS: THIAMINE HCL 100 MG TABLET (FP) PO SCH (21:33)
[2020-03-06] MEDS: ACETAMINOPHEN 325 MG TABLET (FP) PO PRN (07:07)
[2020-03-06] MEDS: NICOTINE 7 MG/24 HOURS TOPICAL PATCH TD SCH (10:47)
[2020-03-06] MEDS: PRENATAL VITAMINS W/ FOLIC ACID TABLET (FP) PO SCH (10:47)
[2020-03-06] MEDS: hydrOXYzine PAMOATE 25 MG CAPSULE (FP) PO PRN (10:47)
[2020-03-06] MEDS: risperiDONE 1 MG TABLET PO SCH ×2 (10:47→21:22)
[2020-03-06] MEDS: MELATONIN 5 MG TABLETS PO SCH (21:22)
[2020-03-06] MEDS: IBUPROFEN 400 MG TABLET (FP) PO PRN (21:22)
[2020-03-06] MEDS: THIAMINE HCL 100 MG TABLET (FP) PO SCH (21:22)
[2020-03-06] MEDS: traZODone HCL 100 MG TABLET (FP) PO SCH (21:22)
[2020-03-07] MEDS: risperiDONE 1 MG TABLET PO SCH ×2 (10:27→21:12)
[2020-03-07] MEDS: ACETAMINOPHEN 325 MG TABLET (FP) PO PRN (10:27)
[2020-03-07] MEDS: NICOTINE 7 MG/24 HOURS TOPICAL PATCH TD SCH (10:27)
[2020-03-07] MEDS: hydrOXYzine PAMOATE 25 MG CAPSULE (FP) PO PRN (10:27)
[2020-03-07] MEDS: PRENATAL VITAMINS W/ FOLIC ACID TABLET (FP) PO SCH (10:27)
[2020-03-07] MEDS: THIAMINE HCL 100 MG TABLET (FP) PO SCH (21:12)
[2020-03-07] MEDS: IBUPROFEN 400 MG TABLET (FP) PO PRN (21:12)
[2020-03-07] MEDS: MELATONIN 5 MG TABLETS PO SCH (21:12)
[2020-03-07] MEDS: traZODone HCL 100 MG TABLET (FP) PO SCH (21:12)
[2020-03-08] MEDS: hydrOXYzine PAMOATE 25 MG CAPSULE (FP) PO PRN (10:04)
[2020-03-08] MEDS: risperiDONE 1 MG TABLET PO SCH ×2 (10:04→21:35)
[2020-03-08] MEDS: PRENATAL VITAMINS W/ FOLIC ACID TABLET (FP) PO SCH (10:04)
[2020-03-08] MEDS: ACETAMINOPHEN 325 MG TABLET (FP) PO PRN (10:05)
[2020-03-08] MEDS: NICOTINE 7 MG/24 HOURS TOPICAL PATCH TD SCH (10:05)
[2020-03-08] MEDS: traZODone HCL 100 MG TABLET (FP) PO SCH (21:35)
[2020-03-08] MEDS: THIAMINE HCL 100 MG TABLET (FP) PO SCH (21:35)
[2020-03-08] MEDS: MELATONIN 5 MG TABLETS PO SCH (21:35)
[2020-03-08] MEDS: IBUPROFEN 400 MG TABLET (FP) PO PRN (21:35)
[2020-03-09] MEDS: NICOTINE 7 MG/24 HOURS TOPICAL PATCH TD SCH (10:14)
[2020-03-09] MEDS: risperiDONE 1 MG TABLET PO SCH ×2 (10:14→21:52)
[2020-03-09] MEDS: ACETAMINOPHEN 325 MG TABLET (FP) PO PRN ×2 (10:14→21:52)
[2020-03-09] MEDS: hydrOXYzine PAMOATE 25 MG CAPSULE (FP) PO PRN (10:14)
[2020-03-09] MEDS: PRENATAL VITAMINS W/ FOLIC ACID TABLET (FP) PO SCH (10:14)
[2020-03-09] MEDS: THIAMINE HCL 100 MG TABLET (FP) PO SCH (21:52)
[2020-03-09] MEDS: traZODone HCL 100 MG TABLET (FP) PO SCH (21:52)
[2020-03-09] MEDS: MELATONIN 5 MG TABLETS PO SCH (21:52)
[2020-03-10] MEDS ORDERED: MASKS NR ONE (06:33)
[2020-03-10] MEDS: risperiDONE 1 MG TABLET PO SCH ×2 (10:18→21:11)
[2020-03-10] MEDS: hydrOXYzine PAMOATE 25 MG CAPSULE (FP) PO PRN (10:18)
[2020-03-10] MEDS: PRENATAL VITAMINS W/ FOLIC ACID TABLET (FP) PO SCH (10:18)
[2020-03-10] MEDS: NICOTINE 7 MG/24 HOURS TOPICAL PATCH TD SCH ×2 (10:19→10:20)
[2020-03-10] MEDS: MELATONIN 5 MG TABLETS PO SCH (21:11)
[2020-03-10] MEDS: THIAMINE HCL 100 MG TABLET (FP) PO SCH (21:11)
[2020-03-10] MEDS: ACETAMINOPHEN 325 MG TABLET (FP) PO PRN (21:11)
[2020-03-10] MEDS: traZODone HCL 100 MG TABLET (FP) PO SCH (21:11)
[2020-03-11] MEDS: risperiDONE 1 MG TABLET PO SCH ×2 (09:22→21:37)
[2020-03-11] MEDS: PRENATAL VITAMINS W/ FOLIC ACID TABLET (FP) PO SCH (09:22)
[2020-03-11] MEDS: NICOTINE 7 MG/24 HOURS TOPICAL PATCH TD SCH (09:22)
[2020-03-11] MEDS: traZODone HCL 100 MG TABLET (FP) PO SCH (21:37)
[2020-03-11] MEDS: THIAMINE HCL 100 MG TABLET (FP) PO SCH (21:37)
[2020-03-11] MEDS: MELATONIN 5 MG TABLETS PO SCH (21:37)
[2020-03-11] MEDS: ACETAMINOPHEN 325 MG TABLET (FP) PO PRN (21:38)
[2020-03-12] MEDS: PRENATAL VITAMINS W/ FOLIC ACID TABLET (FP) PO SCH (09:46)
[2020-03-12] MEDS: ACETAMINOPHEN 325 MG TABLET (FP) PO PRN (09:46)
[2020-03-12] MEDS: NICOTINE 7 MG/24 HOURS TOPICAL PATCH TD SCH (09:46)
[2020-03-12] MEDS: risperiDONE 1 MG TABLET PO SCH ×2 (09:46→21:15)
[2020-03-12] MEDS: MELATONIN 5 MG TABLETS PO SCH (21:15)
[2020-03-12] MEDS: traZODone HCL 100 MG TABLET (FP) PO SCH (21:15)
[2020-03-12] MEDS: THIAMINE HCL 100 MG TABLET (FP) PO SCH (21:15)
[2020-03-13] MEDS: PRENATAL VITAMINS W/ FOLIC ACID TABLET (FP) PO SCH (11:04)
[2020-03-13] MEDS: ACETAMINOPHEN 325 MG TABLET (FP) PO PRN (11:05)
[2020-03-13] MEDS: risperiDONE 1 MG TABLET PO SCH ×2 (11:06→22:02)
[2020-03-13] MEDS: NICOTINE 7 MG/24 HOURS TOPICAL PATCH TD SCH (11:06)
[2020-03-13] MEDS: hydrOXYzine PAMOATE 25 MG CAPSULE (FP) PO PRN (11:06)
--- NOTE | 2020-03-13 11:14 | PN ---
[facility] Progress Note Note: Patient is scheduled for discharge tomorrow. Scripts for 30 days supply of medications(Risperdal 1 mg/bid, Trazadone 100 mg/hs) will be electronically transmitted to [facility], [address] [place] [id number]
[2020-03-13 21:42] VITALS: TEMP 97.8
[2020-03-13] MEDS: traZODone HCL 100 MG TABLET (FP) PO SCH (22:02)
[2020-03-13] MEDS: THIAMINE HCL 100 MG TABLET (FP) PO SCH (22:02)
[2020-03-13] MEDS: MELATONIN 5 MG TABLETS PO SCH (22:02)
[2020-03-14 06:04] VITALS: BP 120/83; PULSE 88
--- NOTE | 2020-03-14 08:45 | DS ---
[facility] Rehab Discharge Summary - [facility] Rehab Discharge Summary Admission Date: 02/28/20 Discharge Date: 03/14/20 - History Present History: Alcohol dependence, Cocaine dependence Pertinent Past History: 50 year old male with history of PCP use disorder, alcohol use disorder. Alcohol: six pack beers daily, started at age 20 Crack: $50 daily, smoking at age 20 PCP: $50 daily started smoking at age 20 PMH: None Psurg: Skin graft left abdomen, left leg Psych: Schizophrenia, Depression - not taken in 2 months He is homeless and lives in the streets. - Discharge Physical Exam Vital Signs: Vital Signs Temperature 97.8 F 03/14/20 05:40 Pulse Rate 88 03/14/20 05:40 Respiratory Rate 20 03/14/20 05:40 Blood Pressure 120/83 03/14/20 05:40 O2 Sat by Pulse Oximetry (%) 96 03/14/20 05:40 Pertinent Admission Physical Exam Findings: Physical General Appearance: No Apparent Distress, HEENTM: Normocephalic, Respiratory: No Respiratory Distress, No Accessory Muscle Use Neck: Supple, Trachea in good positio Abdominal: +Bowel Sounds, Musculoskeletal: full range of Motion, Gait Steady Neurological: Yes: sequins slinger II-XII NML intact, - Treatment Discharge Condition: Outpatient referral accepted (Patient will go to [facility]. medically stable for discharge.) Hospital Course: Patient attended groups, had 1:1 with his provider, and was seen by the psychiatric service. He was adherent to his medical regimen and treatment program. - Medication Discharge Medications: Ambulatory Orders traZODone HCL [Desyrel -] 100 mg PO HS #30 tablet 10/28/19 Risperidone [Risperdal -] 1 mg PO BID #60 tablet 03/13/20 traZODone HCL [Desyrel -] 100 mg PO HS #30 tablet 03/13/20 - Medication-Assisted Treatment (MAT) Medication-Assisted Treatment (MAT): No - Discharge Instructions Diet, activity, other medical instructions: Diet: as tolerated Activity: as tolerated Other medical instructions: Please follow up with your discharge referral. - Diagnosis (1) Alcohol dependence Current Visit: Yes Status: Acute Qualifiers: Substance use status: uncomplicated Qualified Code(s): F10.20 - Alcohol dependence, uncomplicated (2) Cocaine dependence Current Visit: Yes Status: Acute - Follow-up Referral Minutes to complete discharge: 15 - AMA Did Patient Leave Against Medical Advice: No
[2020-03-14] MEDS: PRENATAL VITAMINS W/ FOLIC ACID TABLET (FP) PO SCH (09:31)
[2020-03-14] MEDS: risperiDONE 1 MG TABLET PO SCH (09:31)
[2020-03-14] MEDS: hydrOXYzine PAMOATE 25 MG CAPSULE (FP) PO PRN (09:31)
[2020-03-14] MEDS: ACETAMINOPHEN 325 MG TABLET (FP) PO PRN (09:32)
== END 2020-03-14 09:35 | disposition other institution (70) | DRG 895 ==
LOC: YASAS 08:58 → Y3W 11:05
PROVIDERS: ADMIT Allergy & Immunology; ATTEND Allergy & Immunology
PROC: HZ42ZZZ Group Counseling for Substance Abuse Treatment, Cognitive-Behavioral (ICD-10-PCS; principal; 2020-02-28)
DX: F10.20 Alcohol dependence, uncomplicated (principal); F14.20 Cocaine dependence, uncomplicated; F16.20 Hallucinogen dependence, uncomplicated; F19.282 Other psychoactive substance dependence with psychoactive substance-induced sleep disorder; F17.210 Nicotine dependence, cigarettes, uncomplicated; F19.24 Other psychoactive substance dependence with psychoactive substance-induced mood disorder; F20.9 Schizophrenia, unspecified; F32.9 Major depressive disorder, single episode, unspecified; Z62.810 Personal history of physical and sexual abuse in childhood; Z91.410 Personal history of adult physical and sexual abuse; Z94.5 Skin transplant status; Z56.0 Unemployment, unspecified; Z59.0 Homelessness
CPT/HCPCS: 36415; 80053; 81003; 85027; 85660; 86780; 87389; J2794

== ENCOUNTER 2025-02-10 09:04 | Emergency (ER) | payer OTHER ==
[2025-02-10 09:12] VITALS: BP 118/88; PULSE 90; RESP 16; TEMP 98.2; BMI 42.8
[2025-02-10] MEDS ORDERED: KETOROLAC TROMETHAMINE 15 MG/ML VIAL ONE (10:06)
[2025-02-10] MEDS ORDERED: METOCLOPRAMIDE HCL INJECTION 10 MG/2 ML VIAL ONE (10:06)
[2025-02-10] MEDS: SODIUM CHLORIDE 1,000 ML IV STA (10:34)
[2025-02-10] MEDS: METOCLOPRAMIDE HCL INJECTION 10 MG/2 ML VIAL IVPB ONE (10:34)
[2025-02-10] MEDS: KETOROLAC TROMETHAMINE 15 MG/ML VIAL IVPUSH ONE (10:34)
[2025-02-10 10:37] LABS: ABSOLUTE IMMATURE GRANULOCYTES 0.01 x10^3/uL (0.0-0.031); BASOPHILS # 0.05 x10^3/uL (0.01-0.08); EOSINOPHIL % 1.4 % (0.8-7.0); HEMATOCRIT 43.9 % (40.1-51.0); HEMOGLOBIN 14.6 g/dL (13.7-17.5); MCHC 33.3 g/dl (32.3-36.5); MEAN CELL VOLUME 92.2 fl (79.0-92.2); MEAN PLT VOLUME 10.4 fl (9.4-12.4); MONOCYTE % 8.6 % (5.3-12.2); PLATELET COUNT 273 x10^3/uL (163-337); RDW 13.5 % (12.2-16.1)
[2025-02-10 11:03] LABS: POTASSIUM 3.8 mmol/L (3.5-5.1)
[2025-02-10 11:07] LABS: ALBUMIN 3.9 g/dl (3.4-5.0); BLOOD UREA NITROGEN 14.7 mg/dL (7-18); CALCIUM 9.8 mg/dL (8.5-10.1); MAGNESIUM 2.4 mg/dL (1.8-2.4)
[2025-02-10 11:12] LABS: BILIRUBIN,TOTAL 0.4 mg/dL (0.2-1); TOT PROT 7.6 g/dl (6.4-8.2)
[2025-02-10 12:03] LABS: HCV DIAGNOSTIC IN-HOUSE W/RFLX NON-REACTIVE (NONREACTIVE); HIV INTERPRETATION NEGATIVE (NEGATIVE)
== END 2025-02-10 11:57 | disposition home or self-care (01) ==
LOC: JER 09:04
PROC: 3E0333Z Introduction of Anti-inflammatory into Peripheral Vein, Percutaneous Approach (ICD-10-PCS; principal; 2025-02-10)
PROC: 3E033GC Introduction of Other Therapeutic Substance into Peripheral Vein, Percutaneous Approach (ICD-10-PCS; 2025-02-10)
PROC: 3E0337Z Introduction of Electrolytic and Water Balance Substance into Peripheral Vein, Percutaneous Approach (ICD-10-PCS; 2025-02-10)
DX: R51.9 Headache, unspecified (principal); H02.403 Unspecified ptosis of bilateral eyelids
CPT/HCPCS: 36415; 70450-TC; 80053; 83735; 85025; 86803; 87389; 96361; 96374; 96375; 99285-25